=== PATIENT | female | born 1990 | race Two or more races ===

== ENCOUNTER 2023-09-26 11:43 | Emergency (ER) | payer BC, SELFPAY ==
[2023-09-26 11:50] VITALS: BP 110/73
[2023-09-26 12:20] VITALS: BMI 28.3
[2023-09-26 12:43] LABS: % Basophils 0.9 % (0-2); % Immature Granulocytes 0.5 % (0-0.5); % Lymphocytes 20.4 % (20.5-51.1); % Monocytes 9.5 % (1.7-9.3); % Neutrophils 65.7 % (42.2-75.2); Absolute Eosinophils 0.1 10^3/uL (0-0.7); Absolute Lymphocytes 0.9 10^3/uL (1.2-3.4); Absolute Monocytes 0.4 10^3/uL (0.1-0.6); Absolute Neutrophils 2.8 10^3/uL (1.4-6.5); Hemoglobin 9.2 g/dL (12.0-16.0); Mean Corp Hgb Conc. 31.7 g/dL (33.0-37.0); Mean Corpuscular Hgb 25.9 pg (27.0-31.0); Mean Corpuscular Volume 81.7 fL (81.0-99.0); Mean Platelet Volume 10.8 fL (7.4-10.4); Nucleated Red Blood Cells % 0.5 %; Platelet Count 382 10^3/uL (130-400); Red Blood Cell Count 3.55 10^6/uL (4.20-5.40); Red Cell Dist. Width 19.9 % (11.5-14.5); White Blood Cell Count 4.3 10^3/uL (4.8-10.8)
[2023-09-26 12:45] LABS: Urine Albumin Negative (Neg - Trace); Urine Bilirubin Negative (Negative); Urine Character Clear (Clear); Urine Color Yellow; Urine Glucose Negative (Negative); Urine Ketone Negative (Negative); Urine Leukocyte Negative (Negative); Urine Nitrite Negative (Negative); Urine Occult Blood Negative (Negative); Urine Urobilinogen Negative (Neg - 1+)
--- NOTE | 2023-09-26 13:01 | ED.GENMED ---
History of Present Illness
General
Chief Complaint: Abdominal Pain
Source: patient and family
Exam Limitations: none
Time Seen by Provider: 09/26/23 12:44
Nursing documentation reviewed up to this point in time: agreed with
Travel History
Have you had any contact with someone who has COVID-19?: No
Do you have any symptoms of coronavirus? Fever > 100 degrees, chills, cough, shortness of breath, sore throat, loss of taste or smell, muscle aches, or headache?: No
History of Present Illness
History of Present Illness:
Patient is a 33-year-old female with diagnosis of breast cancer who had a first chemo session August 28. She is followed by [facility] Dr. Morris. She is chemo weekly every Sunday and she was post to have chemo today however did not
because she is not feeling well. She complains of sore throat nonproductive cough abdominal cramping low back pain. Since chemo she has had frequent limits and at times has a blood in her stool. She reports her temperature was 99.9 at home. She
was seen in [place] ED September 08 for borderline neutropenia at that time she had low back pain and had a negative CAT scan.
Past History
Past History
ED Past Medical History: None
ED Past Surgical History:
Social History
Tobacco: Non-smoker
Alcohol: Occasional
Family History
Family History: Unable to obtain
Phy Exam
General Physical Exam
General Presentation: no apparent distress
General age: appears stated age
General Skin: warm and dry
General Habitus: normal
General Mental: alert
ENT Exam
ENT Exam: EOMI, pharynx normal and neck supple
Cardiovascular Exam
Cardiovascular Exam: regular rate/rhythm, no murmur and normal peripheral pulses
Pulmonary Exam
Pulmonary Exam: lungs clear and no respiratory distress
Gastrointestinal Exam
Gastrointestinal Exam: non tender and soft
Neurological Exam
Neurological Exam: alert and oriented x3
Musculoskeletal Exam
Musculoskeletal Exam: full ROM
Skin Exam
Skin Exam: normal color
Psychiatric Exam
Psychiatric Exam: normal mood/affect
Course
Orders/Labs/Results
Orders:
Orders
09/26/23 12:27
Test Result ONCE
09/26/23 12:29
Complete Blood Count/With Diff Urgent
Comprehensive Metabolic Panel Urgent
HCG, Serum Qualitative Screen Urgent
09/26/23 12:34
Urinalysis Reflex To Culture Urgent
Date Specimen was Collected: 09/26/23
Time Specimen was Collected: 12:33
09/26/23 13:38
0.9% Sodium Chloride 1000 ml [Nss] 1,000 ml IV BOLUS
Chest [CR Chest - 2 Views ] Urgent
Comment:
Reason For Exam: cough
09/26/23 13:44
Stool Culture Urgent
KAROLINE Source: Feces/Stool
Specimen Description:
Date Specimen was Collected: 09/26/23
Time Specimen was Collected: 13:42
09/26/23 13:46
Rapid Strep Group A Urgent
KAROLINE Source: Throat/Pharynx
Specimen Description:
Date Specimen was Collected: 09/26/23
Time Specimen was Collected: 13:46
09/26/23 14:11
Dicyclomine HCl [Bentyl] 20 mg IM NOW STA
09/26/23 15:47
Dicyclomine [Bentyl] 20 mg PO NOW STA
09/26/23 16:33
COVID-19 Antigen Urgent
Source: Nasal Swab
Influenza A+B Rapid Molecular Urgent
KAROLINE Source: Nasal Swab
Specimen Description:
Abnormal Lab Results
09/26/23
12:29
WBC 4.3 L 10^3/uL
(4.8-10.8)
RBC 3.55 L 10^6/uL
(4.20-5.40)
Hgb 9.2 L g/dL
(12.0-16.0)
Hct 29.0 L %
(37.0-47.0)
MCH 25.9 L pg
(27.0-31.0)
MCHC 31.7 L g/dL
(33.0-37.0)
RDW 19.9 H %
(11.5-14.5)
MPV 10.8 H fL
(7.4-10.4)
Absolute Lymphs (auto) 0.9 L 10^3/uL
(1.2-3.4)
Lymphocytes % 20.4 L %
(20.5-51.1)
Monocytes % 9.5 H %
(1.7-9.3)
Creatinine 0.5 L mg/dL
(0.6-1.0)
Glucose 105 H mg/dl
(70-99)
AST 50 H U/L
(14-36)
ALT 87 H U/L
(0-35)
09/26/23 12:29
09/26/23 12:29
Vital Signs
Initial and Last Documented VS:
Initial Vital Signs
Temp Pulse Resp BP Pulse Ox
98.5 F 101 17 110/73 98
09/26/23 11:50 09/26/23 11:50 09/26/23 11:50 09/26/23 11:50 09/26/23 11:50
Last Documented Vital Signs
Temp Pulse Resp BP Pulse Ox
99.0 F 99 20 115/72 99
09/26/23 16:32 09/26/23 16:32 09/26/23 16:32 09/26/23 16:32 09/26/23 16:32
MDM/Problems Addressed
MDM/Problems Addressed:
Symptoms are likely viral syndrome. Patient claims mild sore throat abdominal crampiness diarrhea muscle aches back pain. She denies any cough or fever or chills. Denies urinary frequency urgency or dysuria Patient presents awake alert no acute
distress afebrile normal white count hemoglobin 9.2 normal renal function and sodium/potassium normal. Patientwith normal platelets neutrophils 2.8. Normal chemistries(minimal elevation LFTs), normal bilirubin normal urinalysis. Patient received
fluids nausea medicine Bentyl feeling better will DC with Bentyl. Patient has Motrin at home along with nausea medicine discussed close outpatient follow-up w/ oncology /pcp
Chronic conditions affecting care:
currently undergoing treatment (chemo for breast cancer
*Critical Care Note
Total Time (30-74mins, 75-104mins- exclusive of procedures): Not Applicable
ED Attending Note
-
Portions of this chart may have been created with voice recognition software.� Occasional wrong word or��sound alike� substitutions may have occurred due to the inherent limitations of voice recognition software.
Discharge Plan
Departure
Patient Disposition: Home (Routine Discharge)
Date of Disposition: 09/26/23
Time of Disposition: 17:22
Patient with high blood pressure during this ER visit?: No
Condition: Fair
Covid-19: Not Applicable
Discharge Problem:
Acute viral syndrome
Instructions: Viral Exanthem (DC)
Prescriptions:
New
dicyclomine 20 mg tablet
20 mg PO QID PRN (Reason: abdominal cramping) Qty: 10 0RF
No Action
doxycycline hyclate 100 MG capsule
100 mg PO Q12 Qty: 20 0RF
Referrals:
Dahiana Carr PA [Family Provider] -
Activity Restrictions/Additional Instructions:
As discussed to stay well-hydrated you may take your nausea medicine that you have at home as needed. A prescription for Bentyl, antispasmodic was sent to your pharmacy to take for abdominal cramping if needed. You may take ibuprofen for body
aches and chills. Follow-up with oncologist/family doctor next several days for reevaluation return if any worsening of symptoms including worsening fever chills shortness of breath worsening diarrhea or any further concerns.
Interventions
Interventions:
*General Assessment Last Done: 09/26/23 12:21
*Neglect/Abuse Screening Last Done: 09/26/23 12:21
*ED COVID-19 Vaccine History Last Done: 09/26/23 12:23
TF-Idtuqk-Hiwgmoloxp Assessment Last Done: 09/26/23 12:23
Discharge Date and Time
Print Language: YI
[2023-09-26 13:06] LABS: HCG, Serum Qualitative Screen Negative
[2023-09-26 13:08] LABS: ALT (SGPT) 87 U/L (0-35); AST (SGOT) 50 U/L (14-36); Alkaline Phosphatase 59 U/L (38-126); Blood Urea Nitrogen 10 mg/dl (7-17); Calcium 9.3 mg/dl (8.4-10.2); Carbon Dioxide 30 mmol/L (22-30); Chloride 104 mmol/L (98-107); Estimated Creatinine Clearance 120 ml/min; Glucose 105 mg/dl (70-99); Potassium 4.1 mmol/L (3.5-5.1); Sodium 138 mmol/L (135-145); Total Bilirubin 0.2 mg/dl (0.2-1.3); Total Protein 6.9 g/dl (6.3-8.2); eGFR > 60.00
[2023-09-26 13:30] VITALS: BP 112/70
[2023-09-26] MEDS: NSS 1000 IV (13:40)
[2023-09-26 15:00] VITALS: BP 107/72
[2023-09-26] MEDS: BENTYL 20 MG PO (16:25)
[2023-09-26 16:32] VITALS: BP 115/72
[2023-09-26 17:02] LABS: COVID-19 Antigen Negative (Negative)
[2023-09-26 18:00] VITALS: BP 107/75
== END 2023-09-26 18:20 | disposition home or self-care (01) ==
LOC: EMR 11:43
PROVIDERS: Nurse Practitioner; EMERGENCY PHYSICIAN Emergency Medicine; FAMILY PHYSICIAN Family Medicine
DX: B34.9 Viral infection, unspecified (principal); C50.919 Malignant neoplasm of unspecified site of unspecified female breast; Z11.52 Encounter for screening for COVID-19
CPT/HCPCS: 99284; 96360; 71046; 80053; 81003; 84703; 85025; 87045; 87046; 87070; 87427; 87502; 87811; 87880

== ENCOUNTER 2023-10-01 13:56 | Emergency (ER) | payer BC, SELFPAY ==
[2023-10-01 14:03] VITALS: BP 112/93
[2023-10-01 16:10] LABS: % Basophils 1.1 % (0-2); % Eosinophils 5.6 % (0-6); % Immature Granulocytes 0.3 % (0-0.5); % Lymphocytes 36.5 % (20.5-51.1); % Monocytes 17.8 % (1.7-9.3); % Neutrophils 38.7 % (42.2-75.2); Absolute Eosinophils 0.2 10^3/uL (0-0.7); Absolute Lymphocytes 1.3 10^3/uL (1.2-3.4); Absolute Monocytes 0.6 10^3/uL (0.1-0.6); Absolute Neutrophils 1.4 10^3/uL (1.4-6.5); Hematocrit 30.2 % (37.0-47.0); Hemoglobin 9.5 g/dL (12.0-16.0); Mean Corp Hgb Conc. 31.5 g/dL (33.0-37.0); Mean Corpuscular Hgb 25.9 pg (27.0-31.0); Mean Corpuscular Volume 82.3 fL (81.0-99.0); Mean Platelet Volume 10.2 fL (7.4-10.4); Nucleated Red Blood Cells % 0 %; Platelet Count 270 10^3/uL (130-400); Red Blood Cell Count 3.67 10^6/uL (4.20-5.40); Red Cell Dist. Width 21.7 % (11.5-14.5); White Blood Cell Count 3.6 10^3/uL (4.8-10.8)
[2023-10-01 16:21] LABS: INR 1.31; PT 16.1 Sec (11.4-14.6)
[2023-10-01 16:27] LABS: ALT (SGPT) 30 U/L (0-35); AST (SGOT) 24 U/L (14-36); Albumin 3.8 g/dl (3.5-5.0); Alkaline Phosphatase 68 U/L (38-126); Blood Urea Nitrogen 9 mg/dl (7-17); Calcium 9.3 mg/dl (8.4-10.2); Carbon Dioxide 26 mmol/L (22-30); Chloride 102 mmol/L (98-107); Glucose 99 mg/dl (70-99); Sodium 138 mmol/L (135-145); Total Bilirubin 0.4 mg/dl (0.2-1.3); Total Protein 6.6 g/dl (6.3-8.2); eGFR > 60.00
--- NOTE | 2023-10-01 17:04 | ED.GENMED ---
History of Present Illness
General
Chief Complaint: Rectal Bleeding
Source: patient, records and family
Time Seen by Provider: 10/01/23 16:27
Travel History
Have you had any contact with someone who has COVID-19?: No
Do you have any symptoms of coronavirus? Fever > 100 degrees, chills, cough, shortness of breath, sore throat, loss of taste or smell, muscle aches, or headache?: No
History of Present Illness
History of Present Illness:
33-year-old female with past medical history of breast cancer, currently undergoing chemotherapy with last treatment on September 18, presenting to the emergency department for evaluation of continued rectal bleeding after being seen in this emergency
department last week with URI-like symptoms as well as some mild bright red blood intermixed with stool and mucousy stool. Patient was seen in this emergency department last week for some URI-like symptoms but also noted the mucousy and
intermittently bloody stools then. She was given some dicyclomine which she states overall helped the frequency and urgency continue to have bowel movements but states the same mucousy and sometimes blood intermixed with the stool is still present.
She denies any fevers, chills, rigors, vomiting or diarrhea. She does state that she has not been eating or drinking as much due to her chemotherapy and does strain sometimes while having a bowel movement
Past History
Past History
ED Past Medical History: Cancer and Psychiatric
ED Past Surgical History:
Social History
Tobacco: Non-smoker
Alcohol: Occasional
Drug: None
Personal: Single
Living: with family
Family History
Family History: Unable to obtain
Review of Systems
Review of Systems
All Other Systems: ROS reviewed and negative except as documented in HPI and ROS
Phy Exam
Physical Exam
Physical Exam:
GENERAL: Alert , in no apparent distress
EYE: clear conjunctiva b/l
HEAD: NCAT
ENT: o/p clr, mmm.
CARDIAC: Regular rate and rhythm .
LUNGS: Clear breath sounds bilaterally, no acute respiratory distress, no wheezes/rales/rhonchi
ABDOMEN: Soft, without focal tenderness, no r/g, no cvat
Rectal exam: Chaperoned by ED RN Eneida: Small hemorrhoid at the 6 o'clock position noted. No stool in the rectal vault. No blood appreciated
NEUROLOGICAL: Alert and oriented
SKIN: Warm and dry, skin intact.
MUSCULOSKELETAL: well perfused.
PSYCH: Normal and appropriate interaction.
Scores
Heart Failure Risk
Heart Failure Risk Score: Not Applicable
Heart Score for Chest Pain Patients
STEMI patient?: Not applicable
Withdrawal Assessment of Alcohol
Withdrawal Assessment Completed?: Not applicable
Course
Orders/Labs/Results
Orders:
Orders
10/01/23 16:03
Type+Screen Urgent
Complete Blood Count/With Diff Urgent
Comprehensive Metabolic Panel Urgent
Prothrombin Time Urgent
10/01/23 16:44
CR Abdomen - 1 View Urgent
Comment:
Reason For Exam: constipation, bleeding, hx breast cancer
Abnormal Lab Results
10/01/23
16:03
WBC 3.6 L 10^3/uL
(4.8-10.8)
RBC 3.67 L 10^6/uL
(4.20-5.40)
Hgb 9.5 L g/dL
(12.0-16.0)
Hct 30.2 L %
(37.0-47.0)
MCH 25.9 L pg
(27.0-31.0)
MCHC 31.5 L g/dL
(33.0-37.0)
RDW 21.7 H %
(11.5-14.5)
Neutrophils % 38.7 L %
(42.2-75.2)
Monocytes % 17.8 H %
(1.7-9.3)
PT 16.1 H Sec
(11.4-14.6)
10/01/23 16:03
10/01/23 16:03
Vital Signs
Initial and Last Documented VS:
Initial Vital Signs
Temp Pulse Resp BP Pulse Ox
98.0 F 89 16 112/93 98
10/01/23 14:03 10/01/23 14:03 10/01/23 14:03 10/01/23 14:03 10/01/23 14:03
Last Documented Vital Signs
Temp Pulse Resp BP Pulse Ox
98.0 F 74 18 99/69 97
10/01/23 14:03 10/01/23 17:43 10/01/23 17:43 10/01/23 17:43 10/01/23 17:43
MDM/Problems Addressed
Differential Diagnosis Includes:
Hemorrhoidal bleeding, inflammatory bowel disease, bowel obstruction, upper GI bleeding
MDM/Problems Addressed:
33-year-old female presenting the emergency department for evaluation of continued intermittently mucousy stools and intermittent streaks of blood within the stool. She had similar over the last few days. Symptoms somewhat improved with
dicyclomine. Labs were initiated while in triage and patient has a reassuring hemoglobin of 9.5 which is increased from 9.2 just a few days ago. My suspicion for significant upper or lower GI bleed is very minimal given the increase in her
hemoglobin. Labs are otherwise unremarkable. X-ray of the abdomen ordered to evaluate for potential obstruction although feel that this is much less likely as patient is still having bowel movements, no vomiting and still be able to tolerate p.o.
Ultimately feel patient will be stable for discharge home and outpatient management. Patient is requesting me to contact her oncologist as well.
*Radiology
Radiology exam reviewed: preliminary read by ED provider (No obstruction, mild constipation)
*Pulse Oximetry
Patient hypoxic: no
*Critical Care Note
Total Time (30-74mins, 75-104mins- exclusive of procedures): Not Applicable
Data Reviewed
Review of Other/Old Records Reveals: Labs and Records
Patient Management
Discussion with other providers: Wildlife Biology Technician
Escalation/DeEscalation of care consider admission/obs:
Patient's x-ray of the abdomen is unremarkable for any acute pathologies. There is some mild increased stool burden. Advised stool softener. I did notify patient's oncologist at their request who is aware of patient's workup in the ED. Patient
is ultimately stable for discharge and outpatient management. Aware of return precautions.
ED Attending Note
-
Portions of this chart may have been created with voice recognition software.� Occasional wrong word or��sound alike� substitutions may have occurred due to the inherent limitations of voice recognition software.
Discharge Plan
Departure
Patient Disposition: Home (Routine Discharge)
Date of Disposition: 10/01/23
Time of Disposition: 18:03
Patient with high blood pressure during this ER visit?: No
Discharge Problem:
Bleeding hemorrhoids
Instructions: Hemorrhoids (DC)
Prescriptions:
New
hydrocortisone [Anusol-HC] 2.5 % cream with perineal applicator
1 applic PA DAILY PRN (Reason: hemorrhoids) Qty: 30 0RF
dicyclomine 20 mg tablet
20 mg PO BID PRN (Reason: abdominal pain) Qty: 15 0RF
No Action
dicyclomine 20 mg tablet
20 mg PO QID PRN (Reason: abdominal cramping) Qty: 10 0RF
ondansetron [Zofran ODT] 8 mg Tablet,Disintegrating
8 mg PO [id number] PRN (Reason: nausea)
vitamin B complex [B Complete] Tablet
1 tab PO DAILY
cholecalciferol (vitamin D3) [Vitamin D3] 25 mcg (1,000 unit) Tablet
25 mcg PO DAILY
Visbiome 112.5 billion cell Capsule
1 cap PO DAILY
omega 7-ixd-pdf-fish oil [Fish Oil] 1,000 mg (120 mg-180 mg) Capsule
1 cap PO DAILY
calcium carbonate 800 mg calcium /2 gram Powder
500 mg PO DAILY
Black Seed Oil
5 ml PO DAILY
Delta-8 Thc And Cbd Gummies
0.5 tab PO BID
Patient Comments:
patient does no have her medical card yet
[place] Jelly
1 dose PO DAILY
Super Greens Powder
1 packet PO DAILY
Referrals:
Bennett Blanchard MD [Active] - (Colorectal)
Bennett Diaz MD [Family Provider] -
Interventions
Interventions:
*Risk Screen - Suicide Last Done: 10/01/23 18:10
*General Assessment Last Done: 10/01/23 15:45
*Neglect/Abuse Screening Last Done: 10/01/23 18:10
ED- Fall Risk Assessment Last Done: 10/01/23 18:10
*ED COVID-19 Vaccine History Last Done: 10/01/23 14:03
*Nursing Disposition Last Done: 10/01/23 18:10
QH-Bfsmzv-Ipmjrununt Assessment Last Done: 10/01/23 16:40
ED- Pulmonary Assessment Last Done: 10/01/23 16:38
Discharge Date and Time
Discharge Date/Time: 10/01/23 18:10
Print Language: KISWAHILI
[2023-10-01 17:43] VITALS: BP 99/69
== END 2023-10-01 18:10 | disposition home or self-care (01) ==
LOC: EMR 13:56
PROVIDERS: EMERGENCY PHYSICIAN Emergency Medicine; FAMILY PHYSICIAN Family Medicine
DX: K64.9 Unspecified hemorrhoids (principal); K59.00 Constipation, unspecified
CPT/HCPCS: 99284; 74018; 80053; 85025; 85610; 86850; 86900; 86901

== ENCOUNTER → 2023-10-09 15:35 | Outpatient (REF) | payer BC, SELFPAY ==
[2023-10-14 09:02] LABS: HPV, High Risk Not Detected; HPV, High Risk Source Anal
== END ==
LOC: CLAB 15:35
PROVIDERS: ATTENDING PHYSICIAN Surgery
DX: Z86.19 Personal history of other infectious and parasitic diseases (principal)
CPT/HCPCS: 87624; 88112

== ENCOUNTER 2023-10-10 08:47 | Outpatient (RCR) | payer BC, SELFPAY ==
[2023-10-10 09:06] VITALS: BP 108/60
[2023-10-10 09:08] VITALS: BMI 26.2
[2023-10-10 09:27] LABS: % Basophils 0.4 % (0-2); % Eosinophils 2.5 % (0-6); % Lymphocytes 22.7 % (20.5-51.1); % Monocytes 10.9 % (1.7-9.3); % Neutrophils 63.5 % (42.2-75.2); Absolute Eosinophils 0.1 10^3/uL (0-0.7); Absolute Lymphocytes 1.2 10^3/uL (1.2-3.4); Absolute Monocytes 0.6 10^3/uL (0.1-0.6); Absolute Neutrophils 3.3 10^3/uL (1.4-6.5); Hematocrit 35.4 % (37.0-47.0); Hemoglobin 11.2 g/dL (12.0-16.0); Mean Corp Hgb Conc. 31.6 g/dL (33.0-37.0); Mean Corpuscular Hgb 26.9 pg (27.0-31.0); Mean Corpuscular Volume 84.9 fL (81.0-99.0); Platelet Count 294 10^3/uL (130-400); Red Blood Cell Count 4.17 10^6/uL (4.20-5.40); Red Cell Dist. Width 21.7 % (11.5-14.5); White Blood Cell Count 5.2 10^3/uL (4.8-10.8)
[2023-10-10] MEDS: INJECTAFER 265 MG IV (09:46)
[2023-10-10 10:19] LABS: ALT (SGPT) 19 U/L (0-35); AST (SGOT) 19 U/L (14-36); Albumin 3.7 g/dl (3.5-5.0); Alkaline Phosphatase 64 U/L (38-126); Blood Urea Nitrogen 4 mg/dl (7-17); Calcium 9.6 mg/dl (8.4-10.2); Carbon Dioxide 25 mmol/L (22-30); Chloride 104 mmol/L (98-107); Estimated Creatinine Clearance 104 ml/min; Glucose 132 mg/dl (70-99); Phosphorus 3.3 mg/dl (2.5-4.5); Potassium 3.8 mmol/L (3.5-5.1); Sodium 139 mmol/L (135-145); Total Bilirubin 0.3 mg/dl (0.2-1.3); Total Protein 6.3 g/dl (6.3-8.2); eGFR > 60.00
[2023-10-10 10:49] LABS: TSH Reflex To Free T4 0.29 uIU/ml (0.47-4.68)
[2023-10-10 11:30] LABS: Free T4 1.36 ng/dl (0.78-2.19)
[2023-10-10] MEDS: NSS 1000 IV (11:33)
--- NOTE | 2023-10-10 15:10 | W.PN.UPDATE ---
Update Note
- Progress Note Update
10/10/23 15:10
Stephanie is a 33 year old female with a history of breat cancer undergoing neoadjuvant treatment. She comes to today's appointment with her mother. SHe is due to receive keytruda/taxol/carbo and injectafer. Patient seen in [facility] today prior to
treatment. States continues to have 'mauve colored stool' as well as some bright red blood at times and with significant cramping and diarrhea 6 times per day of watery/mucousy stool. Treatment held last week due to a myriad of symptoms and
patient asked for treatment to be held. Collette been in ER a few times for neutropenia and GI bleed/cramping/diarrhea. See ER notes from . Saw GI Dr. Alejandre yesterday who performed rectal exam. She was found to have hemorrhoids but this was not
believed to be cause for bleeding. Last treatment with keytruda 08/29/2023 and taxol/carbo at a reduced dose 09/18. She has had dose delays due to cramping/bleeding and diarrhea and was last treated 09/19/2023. per GI stool specimen r/o
parasites/infection ordered and pending as well as CT abdomen/pelvis ordered and scheduled for Sunday. She is concerned about having treatment today but we did discuss the concerns with delays in treatment and how that can impact response. Spoke
with DON Romeo in [facility] office who states given pending workup and symptoms patient is feeling today we should hold and reassess next week. Appointment for [facility] made for 10/15 at 1pm. Labs to possibly be drawn to
decrease wait time for treatment 10/16. Patient will call to discuss with [facility] if this is possible. Encouraged her to call us for additional questions or concerns. Given severe cramping an rx for ativan was ordered and sent to pharmacy.
Patient instructed not to mix delta 8 gummies with ativan and advised not to drive while taking. If stool studies return normal will plan to resume loperamide if OK by GI and can consider the use of lomotil. Still with lower back pain at times as
well. CT lumbar spine done 09/10/2023 and was without abnormality. Done at [facility] results in [place] for review. She was educated on when to call [facility] office and encouraged to call for any questions or concerns. Will see her next week upon
her return and am available as needed for any additional questions or concerns in the meantime.
== END 2023-10-19 23:59 | disposition home or self-care (01) ==
LOC: OID 08:47
PROVIDERS: ATTENDING PHYSICIAN Internal Medicine Hematology & Oncology; FAMILY PHYSICIAN Family Medicine
DX: C50.412 Malignant neoplasm of upper-outer quadrant of left female breast (principal); D50.9 Iron deficiency anemia, unspecified; D50.8 Other iron deficiency anemias
CPT/HCPCS: 80053; 84100; 84439; 84443; 85025; 96361; 96365; J1439

== ENCOUNTER → 2023-10-10 09:07 | Outpatient (REF) | payer BC, SELFPAY ==
[2023-10-12 17:00] LABS: Calprotectin, Fecal >3000 ug/g (<=49)
== END ==
LOC: REG 09:07
PROVIDERS: ATTENDING PHYSICIAN Surgery; FAMILY PHYSICIAN Family Medicine
DX: R19.7 Diarrhea, unspecified (principal); Z86.19 Personal history of other infectious and parasitic diseases
CPT/HCPCS: 83993; 87045; 87046; 87324; 87328; 87329; 87427; 87449

== ENCOUNTER → 2023-10-12 11:17 | Outpatient (REF) | payer BC, SELFPAY | LOC: HWRAD 11:17 | PROVIDERS: ATTENDING PHYSICIAN Surgery; FAMILY PHYSICIAN Family Medicine; REFERRING PHYSICIAN Internal Medicine Hematology & Oncology | DX: R10.9 Unspecified abdominal pain (principal) | CPT/HCPCS: 74177; Q9967 ==

== ENCOUNTER 2023-10-12 23:05 | Inpatient (IN) | payer BC, SELFPAY ==
[2023-10-12 21:30] VITALS: BP 93/64
--- NOTE | 2023-10-12 22:14 | ED.GENMED ---
History of Present Illness
<SANTOS Sawant - Last Filed: 10/12/23 22:34>
General
Chief Complaint: Abdominal Symptoms
Source: patient and records
Exam Limitations: none
Time Seen by Provider: 10/12/23 22:04
Travel History
Have you had any contact with someone who has COVID-19?: No
Do you have any symptoms of coronavirus? Fever > 100 degrees, chills, cough, shortness of breath, sore throat, loss of taste or smell, muscle aches, or headache?: No
History of Present Illness
History of Present Illness:
33 year old female with hx of breast CA currently on neoadjuvent treatment who presents with symptoms of abdominal cramping with nausea and diarrhea that worsened 3 weeks ago. States she has been having abdominal cramping, nausea, and diarrhea since
starting chemotherapy for her breast CA on 08/20/23. She is on keytruda/taxol/carbo and injectafer. Symptoms worsened three weeks ago with increased abdominal cramping and diarrhea she describes as 'mauve colored' with bright red blood at times.
Also reports increased belching and mild SOB due to the abdominal cramping. Her treatment was held last week due to worsening GI symptoms. She was seen here on 09/26/23 and 10/01/23. Abdominal x-ray and labs were unremarkable and pt was discharged.
Last treatment of keytruda was 08/29/23 and taxol/carbo at a reduced dose of 09/19/23. Pt saw GI DR. Alejandre who ordered a CT abdomen. CT abdomen performed today showed pronounced colonic thickening involving the cecum, ascending colon, hepatic
flexure, and proximal transverse colon, consistent with colitis. Stool studies resulted on 10/10/23 showed negative for infection. Pt was advised to visit the ER by Dr. Aljeandre for admission and IV abx. Denies fevers/chills, cough, chest pain,
vomiting, dysuria, hematuria. She has hx of c/s x2. No other abdominal surgeries.
Past History
<SANTOS Sawant - Last Filed: 10/12/23 22:34>
Past History
ED Past Medical History: Cancer and Psychiatric
ED Past Surgical History:
Social History
Tobacco: Non-smoker
Alcohol: Occasional
Drug: None
Personal: Single
Living: with family
Family History
Family History: Unable to obtain
Review of Systems
<SANTOS Sawant - Last Filed: 10/12/23 22:34>
Review of Systems
Allergies reviewed?: Yes
All Other Systems: ROS reviewed and negative except as documented in HPI and ROS
Constitutional: Reports fatigue
EENT: Reports no symptoms
Respiratory: Reports trouble breathing
Cardiac: Reports no symptoms
ABD/GI: Reports abdominal pain, nausea, vomiting and bloody stools
: Reports no symptoms
Musculoskeletal: Reports no symptoms
Skin: Reports no symptoms
Neurological: Reports no symptoms
Endocrine: Reports no symptoms
Phy Exam
<SANTOS Sawant - Last Filed: 10/12/23 22:34>
General Physical Exam
General Presentation: well appearing
General age: appears stated age
General Skin: warm and dry
General Habitus: normal
General Mental: alert
General Hydration: appears well hydrated
Cardiovascular Exam
Cardiovascular Exam: no edema, no gallop, no murmur, normal peripheral pulses, no carotid bruit and tachycardia
Pulmonary Exam
Pulmonary Exam: lungs clear, no respiratory distress, no rales, no crackles, no rhonchi, no wheezing, no cough and other (Port site to R anterior chest, appears clean/dry/intact, mildly tender to palpation. )
Gastrointestinal Exam
Gastrointestinal Exam: normal bowel sounds, soft, no organomegaly, no pulsatile mass and non distended
Palpation: right upper quadrant: Mild tenderness and Other (Mild epigastric tenderness)
Course
<SANTOS Sawant - Last Filed: 10/12/23 22:34>
Orders/Labs/Results
Orders:
Orders
10/12/23 22:28
Lactic Acid Urgent
0.9% Sodium Chloride 1000 ml [Nss] 1,000 ml IV BOLUS
Lorazepam [Ativan] 0.5 mg IV NOW STA
Piperacillin/Tazo 3.375 Gram [Zosyn] 3.375 gram in 50 ml IV NOW
10/12/23 22:29
Complete Blood Count/With Diff Urgent
Comprehensive Metabolic Panel Urgent
Vital Signs
Initial and Last Documented VS:
Initial Vital Signs
Temp Pulse Resp BP Pulse Ox
98.7 F 99 16 93/64 99
10/12/23 21:30 10/12/23 21:30 10/12/23 21:30 10/12/23 21:30 10/12/23 21:30
Last Documented Vital Signs
Temp Pulse Resp BP Pulse Ox
98.7 F 99 16 93/64 99
10/12/23 21:30 10/12/23 21:30 10/12/23 21:30 10/12/23 21:30 10/12/23 21:30
<Yin Chen DO - Last Filed: 10/12/23 22:44>
Orders/Labs/Results
Orders:
Orders
10/12/23 22:28
Lactic Acid Urgent
0.9% Sodium Chloride 1000 ml [Nss] 1,000 ml IV BOLUS
Lorazepam [Ativan] 0.5 mg IV NOW STA
Piperacillin/Tazo 3.375 Gram [Zosyn] 3.375 gram in 50 ml IV NOW
10/12/23 22:29
Complete Blood Count/With Diff Urgent
Comprehensive Metabolic Panel Urgent
Vital Signs
Initial and Last Documented VS:
Initial Vital Signs
Temp Pulse Resp BP Pulse Ox
98.7 F 99 16 93/64 99
10/12/23 21:30 10/12/23 21:30 10/12/23 21:30 10/12/23 21:30 10/12/23 21:30
Last Documented Vital Signs
Temp Pulse Resp BP Pulse Ox
98.7 F 99 16 93/64 99
10/12/23 21:30 10/12/23 21:30 10/12/23 21:30 10/12/23 21:30 10/12/23 21:30
<SANTOS Sawant - Last Filed: 10/12/23 22:34>
MDM/Problems Addressed
Differential Diagnosis Includes:
Colitis, viral gastroenteritis, rectal carcinoma
MDM/Problems Addressed:
33 year old female with hx of breast CA on chemo who presents for worsening abdominal cramping with nausea and diarrhea x 3 weeks.
Chronic conditions affecting care: Cancer
<SANTOS Sawant - Last Filed: 10/12/23 22:34>
*Critical Care Note
Total Time (30-74mins, 75-104mins- exclusive of procedures): Not Applicable
<Yin Chen DO - Last Filed: 10/12/23 22:44>
*Radiology
Radiology exam reviewed: radiology read reviewed (Outpatient CT abdomen pelvis from earlier today reviewed)
*Pulse Oximetry
Patient hypoxic: no
*Critical Care Note
Total Time (30-74mins, 75-104mins- exclusive of procedures): Not Applicable
ED Attending Note
<SANTOS Sawant - Last Filed: 10/12/23 22:34>
-
Portions of this chart may have been created with voice recognition software.� Occasional wrong word or��sound alike� substitutions may have occurred due to the inherent limitations of voice recognition software.
<Yin Chen DO - Last Filed: 10/12/23 22:44>
ED Attending Note
Patient seen and examined by attending physician: Yes
I performed the substantive portion of visit, reviewed & personally made and approve the management plan that is documented in note by myself or SARITHA.: Yes
I performed a history and physical exam of patient and discussed management with resident, I reviewed resident's note and agree with documented findings and plan of care.: Yes
ED Attending Note:
This is a 33-year-old woman with history of breast cancer who began adjuvant chemotherapy August 28 with Keytruda and Taxol/carbo 09/18. For the past 3 weeks she has had intermittent abdominal cramping, persistent diarrhea with intermittent mucoid
bloody stools. She was running a low-grade fever first week of September and was evaluated in this ED September 25 with unremarkable workup including laboratory studies that showed mild anemia with hemoglobin of 9.2, white blood cell count of 4.3. A CT of the
abdomen and pelvis performed at [facility] week prior was unremarkable. She returned to the ED September 30 due to persistent diarrhea with resolution of fever. Laboratory studies showed persistent mild leukopenia of 3.6 but improvement in
hemoglobin to 9.5. Obstruction series was unremarkable.
She was scheduled for her next dose to chemo just 2 days ago but due to ongoing diarrhea, chemotherapy has remained on hold. She did receive an IV iron infusion 2 days ago.
Stool stool cultures from 2 days ago have returned negative as well as negative C. difficile but CT of the abdomen and pelvis performed today shows moderate pancolitis. No evidence of pneumatosis nor extraluminal air.
Patient was notified of CAT scan results and was instructed to come to the ED for IV fluids and initiation of IV antibiotics.
She continues with crampy abdominal discomfort but denies severe pain. She been having ongoing low back pain for more than a month, nonradiating. She has been attempting to increase her clear liquids but continues to feel somewhat dehydrated. She
has had no nausea or vomiting, no return of fever. She admits to mild generalized fatigue but has had no dizziness nor lightheadedness. No chest pain or cough nor shortness of breath.
GENERAL: 33-year-old female appears her stated age, awake and alert, mildly apprehensive otherwise easily communicative and in no acute distress.
EYE: anicteric
NECK: Supple, nontender, no meningismus, no significant adenopathy.
ENT: oral mucosa is moist. No rhinorrhea.
CARDIAC: Regular rate and rhythm. no murmur.
LUNGS: Clear breath sounds bilaterally, no acute respiratory distress, no wheezes/rales/rhonchi
ABDOMEN: Soft, nondistended, minimal tenderness with deep palpation only to the epigastric region, no r/g, no cvat. normoactive BS.
NEUROLOGICAL: Alert and oriented x3, no focal neuro deficits.
SKIN: Warm and dry, normal color, skin intact. No rash.
MUSCULOSKELETAL: No C/C/E. peripheral pulses are full and equal b/l. No palpable tenderness.
PSYCH: Normal and appropriate interaction.
History, exam and CT concerning for infectious versus inflammatory colitis, ischemic colitis is unlikely.
Concern for electrolyte abnormalities, acute kidney injury/dehydration.
Will initiate IV fluids, IV Zosyn and admit to hospitalist service.
Patient states Ativan prescribed to her 2 days ago has been somewhat helpful for abdominal cramps and low back pain. Will give a small IV dose of Ativan now.
Discharge Plan
Departure
Patient Disposition: Admit
Date of Disposition: 10/12/23
Time of Disposition: 22:34
Admit to: Med/Surg
Admit to doctor: Gerry
Presentation/result/management discussed w/ accepting MD/DO: Hospitalist
Condition: Fair
Discharge Problem:
acute pancolitis, Breast cancer
Prescriptions:
No Action
dicyclomine 20 mg tablet
20 mg PO QID PRN (Reason: abdominal cramping) Qty: 10 0RF
lorazepam [Ativan] 0.5 mg Tablet
0.5 mg PO TID PRN (Reason: nausea/cramping) Qty: 30 0RF
Rx Instructions:
take one tab every 8 hours as needed
ondansetron [Zofran ODT] 8 mg Tablet,Disintegrating
8 mg PO [id number] PRN (Reason: nausea)
vitamin B complex [B Complete] Tablet
1 tab PO DAILY
cholecalciferol (vitamin D3) [Vitamin D3] 25 mcg (1,000 unit) Tablet
25 mcg PO DAILY
Visbiome 112.5 billion cell Capsule
1 cap PO DAILY
omega 6-lkp-kar-fish oil [Fish Oil] 1,000 mg (120 mg-180 mg) Capsule
1 cap PO DAILY
calcium carbonate 800 mg calcium /2 gram Powder
500 mg PO DAILY
Black Seed Oil
5 ml PO DAILY
Delta-8 Thc And Cbd Gummies
0.5 tab PO BID
Patient Comments:
patient does no have her medical card yet
Sea [place] Jelly
1 dose PO DAILY
Super Greens Powder
1 packet PO DAILY
hydrocortisone [Anusol-HC] 2.5 % cream with perineal applicator
1 applic AR DAILY PRN (Reason: hemorrhoids) Qty: 30 0RF
Referrals:
Dahiana Carr PA [Family Provider] -
Interventions
Interventions:
*Risk Screen - Suicide Last Done: 10/12/23 21:30
*General Assessment Last Done: 10/12/23 21:30
*Neglect/Abuse Screening Last Done: 10/12/23 21:30
*ED COVID-19 Vaccine History Last Done: 10/12/23 21:58
[facility]-Cav[facility]rs[facility] Assessment Last Done: 10/12/23 21:59
Discharge Date and Time
Print Language: ESTONIAN
[2023-10-12] MEDS: ATIVAN 0.5 MG IV (22:41)
[2023-10-12] MEDS: ZOSYN 50 IV (22:41)
[2023-10-12] MEDS: NSS 1000 IV (22:42)
[2023-10-12 22:45] LABS: % Basophils 1.2 % (0-2); % Eosinophils 5.4 % (0-6); % Immature Granulocytes 0.2 % (0-0.5); % Monocytes 14.1 % (1.7-9.3); % Neutrophils 52.1 % (42.2-75.2); Absolute Basophils 0.1 10^3/uL (0-0.2); Absolute Eosinophils 0.2 10^3/uL (0-0.7); Absolute Lymphocytes 1.2 10^3/uL (1.2-3.4); Absolute Monocytes 0.6 10^3/uL (0.1-0.6); Absolute Neutrophils 2.2 10^3/uL (1.4-6.5); Hemoglobin 11.3 g/dL (12.0-16.0); Mean Corp Hgb Conc. 30.5 g/dL (33.0-37.0); Mean Corpuscular Hgb 26.2 pg (27.0-31.0); Mean Corpuscular Volume 85.6 fL (81.0-99.0); Mean Platelet Volume 10.6 fL (7.4-10.4); Nucleated Red Blood Cells % 0 %; Platelet Count 304 10^3/uL (130-400); Red Blood Cell Count 4.32 10^6/uL (4.20-5.40); Red Cell Dist. Width 22.2 % (11.5-14.5); White Blood Cell Count 4.3 10^3/uL (4.8-10.8)
--- NOTE | 2023-10-12 22:53 | HPS.HSE ---
Family Physician
-
Family Physician: Dahiana Carr
Chief Complaint
-
didarrhea
History of Present Illness
33-year-old female past medical history of breast cancer on neoadjuvant chemotherapy with Keytruda/Taxol/carboplatin and Injectafer presents with abdominal cramping and nausea and diarrhea worsening over the past 3 weeks. She states that since
starting chemotherapy for breast cancer on 08/19 she has been having intermittent abdominal cramping, nausea and diarrhea which she describes as watery and occasionally mauve colored with bright red blood at times although bleeding is recently
resolved. She has had increased belching and mild shortness of breath due to abdominal cramping. Her chemotherapy treatment was held last week due to GI symptoms. She came to the emergency room on 09/25 and 09/30. Abdominal x-rays were unremarkable
and patient was discharged.
Patient saw colorectal Dr. Alejandre who ordered CT scan abdomen which showed pronounced colonic thickening involving the cecum, ascending colon, hepatic flexure and proximal transverse colon consistent colitis. Stool studies performed on 10/07 were
negative for infection. She was recommended come to emergency room. She denies fevers or chills, cough, chest pain, vomiting, dysuria.
She denies smoking or alcohol use. She does take THC Gummies.
Medical History
Past Medical History
Past Medical History: Reports Other ( breast cancer on neoadjuvant chemotherapy with Keytruda/Taxol/carboplatin and Injectafer)
Past Surgical History: Reports
Social History
Tobacco: Non-smoker
Alcohol: None
Drug: Marijuana
Family History
Family History: Not pertinent
Allergies / Home Medications
Allergies reflects when Allergies were last updated in [facility].
Home Medications with original date entered in [facility]
Allergy/Medication List:
Allergies
Allergy/AdvReac Type Severity Reaction Status Date / Time
acetaminophen [From Percocet] Allergy Itching Verified 10/10/23 11:32
oxycodone [From Percocet] Allergy Itching Verified 10/10/23 11:32
Home Medications
dicyclomine 20 mg tablet 20 mg PO QID PRN abdominal cramping #10 tabs 09/26/23
Black Seed Oil 5 ml PO DAILY Supplement 10/01/23
Delta-8 Thc And Cbd Gummies 0.5 tab PO BID Supplement 10/01/23
Lactobac no.2-Bifidobac no.1-S. thermo 112.5 billion cell capsule (Visbiome) 1 cap PO DAILY probiotic 10/01/23
Sea Murcia Jelly 1 dose PO DAILY Supplement 10/01/23
Super Greens Powder 1 packet PO DAILY Supplement 10/01/23
calcium carbonate 500 mg PO DAILY Supplement 10/01/23
cholecalciferol (vitamin D3) 25 mcg (1,000 unit) tablet (Vitamin D3) 25 mcg PO DAILY Supplement 10/01/23
hydrocortisone 2.5 % topical cream with perineal applicator (Anusol-HC) 1 applic NE DAILY PRN hemorrhoids #30 grams 10/01/23
omega 5-maw-vok-fish oil 1,000 mg (120 mg-180 mg) capsule (Fish Oil) 1 cap PO DAILY Supplement 10/01/23
ondansetron 8 mg disintegrating tablet 8 mg PO [id number] PRN nausea 10/01/23
vitamin B complex 1 tab PO DAILY Supplement 10/01/23
lorazepam 0.5 mg tablet (Ativan) 0.5 mg PO TID PRN nausea/cramping #30 tabs 10/10/23
Review of Systems
-
History Source: Patient
A 12 point ROS was completed and negative except as noted: Yes
Constitutional: Reports No Symptoms
EENT: Reports No Symptoms
Respiratory: Reports No Symptoms
Cardiac: Reports No Symptoms
Abdomen/GI: Reports See HPI
: Reports No Symptoms
Musculoskeletal: Reports No Symptoms
Skin: Reports No Symptoms
Neurological: Reports No Symptoms
Endocrine: Reports No Symptoms
Hematologic/Lymphatic: Reports No Symptoms
Psych: Reports No Symptoms
Physical Exam
Vital Signs
Vital Signs
Temp Pulse Resp BP Pulse Ox
98.7 F 99 16 93/64 99
10/12/23 21:30 10/12/23 21:30 10/12/23 21:30 10/12/23 21:30 10/12/23 21:30
Physical Exam
General: Well Developed, Well Nourished and No Apparent Distress
HEENT: NormoCephalic, Moist mucous membranes and Atraumatic
Respiratory: Clear
Cardiac: S1/S2 and Regular Rhythm; No Murmur or Rub
GI: Soft, Non Distended, Normal Bowel Sounds and Tender (diffusely ); No Organomegaly
Rectal: Deferred by Provider
Musculoskeletal: No Clubbing, No Cyanosis and No Edema
Skin: No Rash
Neuro: Nonfocal/grossly intact
Data Reviewed
-
Lab Data: Labs Reviewed by me
Old Records: Reviewed
Impression/Plan
-
IMPRESSION:
PLAN:
# Pancolitis with hematochezia in the setting of chemotherapy
-Hematochezia now improved
-Stool culture, C. difficile negative on 10/09
-IV fluids
-Zosyn
-Labs pending
-Continue dicyclomine
-Dilaudid as needed
-Zofran
-Clear liquid diet
Breast cancer on neoadjuvant chemotherapy
Anxiety/depression
-Continue Ativan as needed
Full code
DVT prophylaxis�SCDs
Clear liquid diet
[2023-10-12 22:59] LABS: Lactic Acid 0.9 mmol/L (0.7-2.0)
[2023-10-12 23:00] LABS: ALT (SGPT) 21 U/L (0-35); AST (SGOT) 25 U/L (14-36); Albumin 3.6 g/dl (3.5-5.0); Alkaline Phosphatase 69 U/L (38-126); Blood Urea Nitrogen 9 mg/dl (7-17); Calcium 9.1 mg/dl (8.4-10.2); Carbon Dioxide 27 mmol/L (22-30); Chloride 102 mmol/L (98-107); Glucose 99 mg/dl (70-99); Potassium 4.2 mmol/L (3.5-5.1); Sodium 135 mmol/L (135-145); Total Bilirubin 0.4 mg/dl (0.2-1.3); Total Protein 6.3 g/dl (6.3-8.2); eGFR > 60.00
[2023-10-12 23:11] VITALS: BP 109/74
[2023-10-12 23:12] LABS: Normal RBC Morphology No
[2023-10-12 23:13] LABS: Anisocytosis 1+; Hypochromasia 1+; Macrocytosis 2+; Tear Drop Red Blood Cells 1+
[2023-10-12] MEDS: FLUSH (NSS) 1 FLUSH IV (23:17)
[2023-10-13 01:05] VITALS: BP 115/74; BMI 25.9
[2023-10-13] MEDS: NSS 1000 IV ×3 (01:39→21:50)
[2023-10-13] MEDS: DILAUDID 0.5 MG IV ×2 (01:58→13:32)
[2023-10-13] MEDS: ZOSYN 50 IV ×4 (04:43→21:49)
[2023-10-13 07:40] VITALS: BP 107/67
[2023-10-13 07:47] LABS: % Basophils 0.8 % (0-2); % Eosinophils 6.9 % (0-6); % Immature Granulocytes 0.3 % (0-0.5); % Lymphocytes 25.4 % (20.5-51.1); % Monocytes 13.6 % (1.7-9.3); Absolute Eosinophils 0.3 10^3/uL (0-0.7); Absolute Monocytes 0.5 10^3/uL (0.1-0.6); Absolute Neutrophils 2.1 10^3/uL (1.4-6.5); Hematocrit 31.6 % (37.0-47.0); Hemoglobin 9.9 g/dL (12.0-16.0); Mean Corp Hgb Conc. 31.3 g/dL (33.0-37.0); Mean Corpuscular Hgb 26.8 pg (27.0-31.0); Mean Corpuscular Volume 85.6 fL (81.0-99.0); Mean Platelet Volume 10.9 fL (7.4-10.4); Nucleated Red Blood Cells % 0 %; Platelet Count 255 10^3/uL (130-400); Red Blood Cell Count 3.69 10^6/uL (4.20-5.40); Red Cell Dist. Width 22.1 % (11.5-14.5); White Blood Cell Count 3.9 10^3/uL (4.8-10.8)
[2023-10-13 08:43] LABS: ALT (SGPT) 18 U/L (0-35); AST (SGOT) 24 U/L (14-36); Albumin 2.7 g/dl (3.5-5.0); Alkaline Phosphatase 49 U/L (38-126); Blood Urea Nitrogen 6 mg/dl (7-17); Calcium 8.3 mg/dl (8.4-10.2); Carbon Dioxide 24 mmol/L (22-30); Chloride 107 mmol/L (98-107); Estimated Creatinine Clearance 104 ml/min; Glucose 95 mg/dl (70-99); Sodium 136 mmol/L (135-145); Total Bilirubin 0.4 mg/dl (0.2-1.3); Total Protein 5.2 g/dl (6.3-8.2); eGFR > 60.00
--- NOTE | 2023-10-13 13:04 | W.PN.HOSP.TC ---
Today's Communication/Plan
-
Pending stool study
Assessment / Plan
Assessment / Plan
Assessment:
Patient is a pleasant 33 years old with history of breast cancer on chemotherapy with Keytruda/Taxol/carboplatin who came to the ER with 3 weeks history of diarrhea found to have pancolitis.
Assessment/plan:
Sepsis secondary to pancolitis
Patient meets sepsis criteria on admission
Heart rate 99
WBCs 3.9
Respiratory rate 17
Temperature 98.8
Source of infection is pancolitis seen on CT scan
Continue IV fluid
IV antibiotic in form of Zosyn
Blood culture pending
Recent stool studies on October 09 came back negative including C. difficile, will repeat
Continue dicyclomine
Dilaudid as needed
Zofran
Clear liquid diet-advance as tolerated
If repeat stool studies negative will start Imodium.
Breast cancer on neoadjuvant chemotherapy
Anxiety/depression
-Continue Ativan as needed
Full code
DVT prophylaxis�SCDs
Clear liquid diet
Anticipated Discharge: > 48 hours
Subjective/Interval History
-
Date of Service: October 13, 2023
Patient seen and examined at bedside.
Patient still with significant watery diarrhea, reviewed stool studies done from October 09 which came back negative.
Repeat stool studies.
Started on Zosyn on admission.
Complaining of back pain relieved with Dilaudid.
Objective Data
-
Labs:
Laboratory Results
10/13/23
06:54
WBC 3.9 L
Hgb 9.9 L
Hct 31.6 L
Plt Count 255
Sodium 136
Potassium 4.0
Chloride 107
Carbon Dioxide 24
BUN 6 L
Creatinine 0.5 L
Glucose 95
Calcium 8.3 L
Total Bilirubin 0.4
AST 24
ALT 18
Alkaline Phosphatase 49
Vital Signs:
Vital Signs
Temp Pulse Resp BP Pulse Ox
98.8 F 98 17 107/67 98
10/13/23 07:40 10/13/23 07:40 10/13/23 07:40 10/13/23 07:40 10/13/23 10:20
I&O
10/12/23 10/13/23 10/14/23
06:59 06:59 06:59
Intake Total 480 / 480
Balance 480 / 480
Physical Exam
-
General: Well Developed and No Apparent Distress
HEENT: Normocephalic, Atraumatic and Moist Mucous Membranes
Respiratory: Clear to Auscultation
Cardiac: Regular Rhythm and S1/S2; Negative Murmur, Rub or Gallop
GI: Soft, Nontender, Nondistended and Normal Bowel Sounds; Negative Organomegaly
Rectal: Deferred by Provider
Musculoskeletal: No Clubbing, No Cyanosis and No Edema
Skin: Negative Rash
Neuro: Nonfocal/Grossly Intact
[2023-10-13 15:30] VITALS: BP 94/54
[2023-10-13 23:55] VITALS: BP 96/58
[2023-10-14] MEDS: DILAUDID 0.5 MG IV ×2 (01:11→21:26)
[2023-10-14] MEDS: ZOSYN 50 IV ×4 (04:09→21:22)
[2023-10-14 05:31] LABS: Hematocrit 30.2 % (37.0-47.0); Hemoglobin 9.6 g/dL (12.0-16.0); Mean Corp Hgb Conc. 31.8 g/dL (33.0-37.0); Mean Corpuscular Volume 85.1 fL (81.0-99.0); Mean Platelet Volume 10.8 fL (7.4-10.4); Platelet Count 276 10^3/uL (130-400); Red Blood Cell Count 3.55 10^6/uL (4.20-5.40); Red Cell Dist. Width 22.3 % (11.5-14.5); White Blood Cell Count 3.6 10^3/uL (4.8-10.8)
[2023-10-14 05:50] LABS: Blood Urea Nitrogen < 2 mg/dl (7-17); Calcium 8.4 mg/dl (8.4-10.2); Carbon Dioxide 25 mmol/L (22-30); Chloride 108 mmol/L (98-107); Estimated Creatinine Clearance 104 ml/min; Glucose 86 mg/dl (70-99); Potassium 4.1 mmol/L (3.5-5.1); Sodium 137 mmol/L (135-145); eGFR > 60.00
[2023-10-14 07:05] VITALS: BP 106/69
[2023-10-14] MEDS: NSS IV (09:13)
[2023-10-14 09:19] VITALS: BMI 25.9
[2023-10-14 13:31] LABS: % Basophils 0.9 % (0-2); % Immature Granulocytes 0.3 % (0-0.5); % Lymphocytes 30.1 % (20.5-51.1); % Monocytes 11.4 % (1.7-9.3); % Neutrophils 51.3 % (42.2-75.2); Absolute Eosinophils 0.2 10^3/uL (0-0.7); Absolute Monocytes 0.4 10^3/uL (0.1-0.6); Absolute Neutrophils 1.7 10^3/uL (1.4-6.5); Hemoglobin 10.3 g/dL (12.0-16.0); Mean Corp Hgb Conc. 32.2 g/dL (33.0-37.0); Mean Platelet Volume 10.4 fL (7.4-10.4); Nucleated Red Blood Cells % 0 %; Platelet Count 294 10^3/uL (130-400); Red Blood Cell Count 3.81 10^6/uL (4.20-5.40); Red Cell Dist. Width 22.6 % (11.5-14.5); White Blood Cell Count 3.3 10^3/uL (4.8-10.8)
--- NOTE | 2023-10-14 14:35 | CM ---
Met with patient at bedside; initial assessment completed
Pharmacy verified: [facility] [place]
Patient lives with parents/family in a multilevel home; 4 steps to enter; 14 steps between floors; powder room on the 1st floor; 2nd floor bedroom and bath; bath has tub/shower
PLOF: diagnosed w/ Breast Cancer 07/2023; receiving chemo; patient reports she is independent with ambulation, steps, ADLs; Drives; unemployed
SNF/Rehab/Home Health utilization history: none
Transportation: mother will provide ride home
Plan: discharge to home when medically stable; no needs anticipated
[2023-10-14 15:00] VITALS: BP 105/60
[2023-10-14] MEDS: NSS 1000 IV (15:59)
--- NOTE | 2023-10-14 16:26 | W.PN.HOSP.TC ---
Today's Communication/Plan
-
NPO except meds and ice chips/sips of clears
Continue antibiotics
Morning labs
Appreciate CRS, GI ad Oncology
Assessment / Plan
Assessment / Plan
Physical Exam
General: Well Developed and No Apparent Distress
HEENT: Normocephalic, Atraumatic and Moist Mucous Membranes
Respiratory: Clear to Auscultation
Cardiac: Regular Rhythm and S1/S2
GI: Soft, Nontender, Nondistended and Normal Bowel Sounds
Musculoskeletal: No Cyanosis and No Edema
Skin: Warm. Dry.
Neuro: Nonfocal/Grossly Intact
Assessment/Plan
Patient is a pleasant 33 years old with history of breast cancer on chemotherapy with Keytruda/Taxol/carboplatin who came to the ER with 3 weeks history of diarrhea found to have pancolitis.
Concern for Sepsis secondary to pancolitis
Concern for typhilitis
Patient met sepsis criteria on admission
Source of infection is pancolitis seen on CT scan
Continue IV fluids
IV antibiotic in form of Zosyn
Blood culture pending
Stool studies with negative C. Diff
Continue dicyclomine
Dilaudid as needed
Zofran prn
NPO except meds and sips/ice chips
Breast cancer on neoadjuvant chemotherapy
-Patient sees Dr. Alejandre colorectal surgeon outpatient
-Consulted colorectal, GI and oncology
Anxiety/depression
-Continue Ativan as needed
Full code
DVT Prophylaxis�Lovenox
NPO except medications and sips/ice chips
Anticipated Discharge: > 48 hours
Subjective/Interval History
-
Date of Service: October 14, 2023
Patient was seen and examined. She reported that her symptoms were overall better than when she came in.
Objective Data
-
Labs:
Laboratory Results
10/14/23 10/14/23
04:19 13:22
WBC 3.6 L 3.3 L
Hgb 9.6 L 10.3 L
Hct 30.2 L 32.0 L
Plt Count 276 294
Sodium 137
Potassium 4.1
Chloride 108 H
Carbon Dioxide 25
BUN < 2 L
Creatinine 0.5 L
Glucose 86
Calcium 8.4
Vital Signs:
Vital Signs
Temp Pulse Resp BP Pulse Ox
97.8 F 77 17 105/60 97
10/14/23 15:00 10/14/23 15:00 10/14/23 15:00 10/14/23 15:00 10/14/23 15:00
I&O
10/13/23 10/14/23 10/15/23
06:59 06:59 06:59
Intake Total 2880 / 2880
Balance 2880 / 2880
--- NOTE | 2023-10-14 16:26 | CON.CRS ---
Medical History
-
Chief Complaint: diarrhea
History of Present Illness:
Ms. Kaba is a 33 yo female who is undergoing treatment for breast cancer with Keytruda/taxol/carboplatin and Injectafer with last cycle on 09/18 who presents with ongoing diarrhea and abdominal cramping. She was initially seen by Dr. Alejandre in clinic
on 10/09 for diarrhea with rectal bleeding noted. Some hemorrhoids noted, but not enough to explain the degree of diarrhea and bleeding she was happening. She underwent outpatient work up including stool studies and CT imaging with negative stool
studies and CT findings of colitis and was advised to come to the the ED on Sunday for management as pancolitis was noted and diarrhea was persistent. She denies fevers, chills, nausea or vomiting. She has liquid stools approximately every 2 hours.
She denies fevers or chills. Does note some back pain, was previously taking Delta-8 thc with relief, but has been off since Ativan initiated as OP for cramping abdominal pain.
Past Medical History
Past Medical History: Cancer (breast) and Other (HPV)
Past Surgical History: (x2) and Other (breast biopsy, thyroid biopsy)
Social History
Tobacco: Non-Smoker
Alcohol: None
Drug: Marijuana (delta-8 for pain)
Living: With Family
Family History
Family History: Reviewed & Not Pertinent
Allergies / Home Medications
Allergy/AdvReac Type Severity Reaction Status Date / Time
acetaminophen [From Percocet] Allergy Itching Verified 10/10/23 11:32
oxycodone [From Percocet] Allergy Itching Verified 10/10/23 11:32
�Medication �Instructions �Recorded �Confirmed �Type
dicyclomine 20 mg tablet 20 mg PO QID PRN abdominal 09/26/23 10/12/23 Rx
cramping #10 tabs
Black Seed Oil 5 ml PO DAILY Supplement 10/01/23 10/12/23 History
Delta-8 Thc And Cbd Gummies 0.5 tab PO BID Supplement 10/01/23 10/12/23 History
Lactobac no.2-Bifidobac no.1-S. 1 cap PO DAILY probiotic 10/01/23 10/12/23 History
thermo 112.5 billion cell capsule
(Visbiome)
Sea Murcia Jelly 1 dose PO DAILY Supplement 10/01/23 10/12/23 History
Super Greens Powder 1 packet PO DAILY Supplement 10/01/23 10/12/23 History
calcium carbonate 500 mg PO DAILY Supplement 10/01/23 10/12/23 History
cholecalciferol (vitamin D3) 25 25 mcg PO DAILY Supplement 10/01/23 10/12/23 History
mcg (1,000 unit) tablet (Vitamin
D3)
hydrocortisone 2.5 % topical cream 1 applic SD DAILY PRN hemorrhoids 10/01/23 10/12/23 Rx
with perineal applicator #30 grams
(Anusol-HC)
omega 3-has-tsu-fish oil 1,000 mg 1 cap PO DAILY Supplement 10/01/23 10/12/23 History
(120 mg-180 mg) capsule (Fish Oil)
ondansetron 8 mg disintegrating 8 mg PO [id number] PRN nausea 10/01/23 10/12/23 History
tablet
vitamin B complex 1 tab PO DAILY Supplement 10/01/23 10/12/23 History
lorazepam 0.5 mg tablet (Ativan) 0.5 mg PO TID PRN nausea/cramping 10/10/23 10/12/23 Rx
#30 tabs
Review of Systems
-
History Source: Patient and Family
All other systems: Negative unless noted
A 10 point review of systems was completed, and was negative except as per HPI.
Physical Exam
Vital Signs
Temp 97.8 F 10/14/23 15:00
Pulse 77 10/14/23 15:00
Resp Rate 17 10/14/23 15:00
Blood pressure 105/60 10/14/23 15:00
SaO2 97 10/14/23 15:00
10/13/23 10/14/23 10/15/23
06:59 06:59 06:59
Actual Weight 64.155 kg
Body Mass Index (BMI) 25.9
Lab Results / Allergies
10/14/23 13:22
10/14/23 04:19
WBC 3.3 10^3/uL (4.8-10.8) L 10/14/23 13:22
Hgb 10.3 g/dL (12.0-16.0) L 10/14/23 13:22
Hct 32.0 % (37.0-47.0) L 10/14/23 13:22
Plt Count 294 10^3/uL (130-400) 10/14/23 13:22
Abs Immat Gran (auto) 0.0 10^3/uL (0-0.05) 10/14/23 13:22
Neutrophils % 51.3 % (42.2-75.2) 10/14/23 13:22
Allergy/AdvReac Type Severity Reaction Status Date / Time
acetaminophen [From Percocet] Allergy Itching Verified 10/10/23 11:32
oxycodone [From Percocet] Allergy Itching Verified 10/10/23 11:32
Physical Exam
General: Well Developed, Well Nourished and No Apparent Distress
HEENT: Moist Mucous Membranes
Respiratory: Non Labored Respirations
GI: Soft, Tender (mildly tender to the upper abd medially) and Distended (mild)
Skin: Warm and Dry
Neuro: Awake, Alert and AO x 3
Psych: Calm
Data Reviewed
-
CT Scan: Image Personally Visualized and interpreted, Report Reviewed by me, Discussed with Physician and Discussed with Patient
Labs: Labs Reviewed by me, Discussed with Physician and Discussed with Patient
Old Records: Reviewed
Assessment / Plan
-
Assessment:
33 yo female undergoing treatment for Breast CA at [facility] with Keytruda/taxol/carboplatin and Injectafer with last cycle on 09/18 (skipped this week d/t diarrhea symptoms) with 3 week history of diarrhea seen as an outpatient by Dr. Alejandre as she
began having rectal bleeding as well. Outpatient work up with negative stool studies and pancolitis on CT imaging prompting recommendation to present to ED for admission. AFVSS. Mild anemia and leukopenia noted, stable labs. Stooling approximately
q2h currently. Repeat stool studies have been sent as inpatient, thus far negative. Suspect typhlitis.
Plan:
Needs bowel rest, keep NPO except meds
Analgesics prn, notes Ativan has been working for the cramping abdominal pain she was having; would continue
IVF hydration
Continue ABX
Consult medical oncology
Trend cbc/cmp
SCD's while in bed. Hold chemical VTE ppx at this point given bloody stools.
[2023-10-14] MEDS: LOVENOX 40 MG SC (17:48)
[2023-10-14] MEDS: FLUSH (NSS) 2 FLUSH IV (21:27)
[2023-10-14 23:30] VITALS: BP 104/67
[2023-10-15] MEDS: ZOSYN 50 IV ×2 (03:29→09:02)
[2023-10-15] MEDS: DILAUDID 0.5 MG IV ×2 (03:29→22:32)
[2023-10-15] MEDS: NSS 1000 IV (05:03)
[2023-10-15 07:00] VITALS: BP 121/67
[2023-10-15 08:18] LABS: % Basophils 1.1 % (0-2); % Eosinophils 6.5 % (0-6); % Immature Granulocytes 0.3 % (0-0.5); % Lymphocytes 29.9 % (20.5-51.1); % Monocytes 11.1 % (1.7-9.3); % Neutrophils 51.1 % (42.2-75.2); Absolute Eosinophils 0.2 10^3/uL (0-0.7); Absolute Lymphocytes 1.1 10^3/uL (1.2-3.4); Absolute Monocytes 0.4 10^3/uL (0.1-0.6); Absolute Neutrophils 1.9 10^3/uL (1.4-6.5); Hematocrit 30.4 % (37.0-47.0); Hemoglobin 9.3 g/dL (12.0-16.0); Mean Corp Hgb Conc. 30.6 g/dL (33.0-37.0); Mean Corpuscular Hgb 26.5 pg (27.0-31.0); Mean Corpuscular Volume 86.6 fL (81.0-99.0); Nucleated Red Blood Cells % 0 %; Red Blood Cell Count 3.51 10^6/uL (4.20-5.40); Red Cell Dist. Width 22.2 % (11.5-14.5); White Blood Cell Count 3.7 10^3/uL (4.8-10.8)
[2023-10-15 08:38] LABS: ALT (SGPT) 16 U/L (0-35); AST (SGOT) 21 U/L (14-36); Albumin 2.8 g/dl (3.5-5.0); Alkaline Phosphatase 56 U/L (38-126); Blood Urea Nitrogen < 2 mg/dl (7-17); Calcium 8.8 mg/dl (8.4-10.2); Carbon Dioxide 26 mmol/L (22-30); Chloride 107 mmol/L (98-107); Estimated Creatinine Clearance 104 ml/min; Glucose 77 mg/dl (70-99); Potassium 3.9 mmol/L (3.5-5.1); Sodium 138 mmol/L (135-145); Total Bilirubin 0.4 mg/dl (0.2-1.3); Total Protein 5.3 g/dl (6.3-8.2); eGFR > 60.00
[2023-10-15 09:23] LABS: Mean Platelet Volume 10.8 fL (7.4-10.4); Platelet Count 230 10^3/uL (130-400)
--- NOTE | 2023-10-15 11:07 | CON.GI ---
Consultation
-
Date/Time Consultation Requested: 10/14/23 1241
Date/Time Consultation Performed: 10/15/23 1000
Requesting Provider: Dr Wood
Performing Provider: Dr Russell
Reason for Consultation: diarrhea
Medical History
Chief Complaint / HPI
Chief Complaint: diarrhea
History of Present Illness:
Stephanie is a 33yo W with h/o L breast cancer diagnosed 07/2023 on chemotherapy (keytruda/taxol/carbo) last 09/19/23 and thyroid cancer who presents with profuse nonbloody diarrhea. She started chemotherapy on 08/28 and her last dose was 09/19/23. She
went for carbo/taxol infusion on October 02 but it was not given due to her 2-3 wks of diarrhea. Initially it was a few times per day and now 10-12x/day. There is urgency but no abd cramping pain, fever or chills. She denies sick contacts or recent
abx. She was in ED twice prior to this admission for similar symptoms. She was given bentyl in the past with some improvement. She denies FH of CRC, crohn's or colitis. She has lost about 6-7lbs in the past few days due to this. Denies fever,
chills odynophagia, dysphagia, nausea/vomiting, blood in stools, constipation. She has never had EGD/colonoscopy in the past
Past Medical History
Past Medical History: Other (Breast cancer, Thyroid cancer)
Past Surgical History: Other (PORT placement, breast bx, thyroid bx, Csection x2)
Social History
Tobacco: Non-Smoker
Alcohol: None
Drug: Marijuana (THC gummies)
Living: With Family (mother and 2 kids (11 and 17yo ))
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
Family History
Family History: Other (Denies IBD or CRC)
Allergies / Home Medications
Allergy/AdvReac Type Severity Reaction Status Date / Time
oxycodone [From Percocet] Allergy Itching Verified 10/10/23 11:32
�Medication �Instructions �Recorded
dicyclomine 20 mg tablet 20 mg PO QID PRN abdominal 09/26/23
cramping #10 tabs
Black Seed Oil 5 ml PO DAILY Supplement 10/01/23
Delta-8 Thc And Cbd Gummies 0.5 tab PO BID Supplement 10/01/23
Lactobac no.2-Bifidobac no.1-S. 1 cap PO DAILY probiotic 10/01/23
thermo 112.5 billion cell capsule
(Visbiome)
Sea Murcia Jelly 1 dose PO DAILY Supplement 10/01/23
Super Greens Powder 1 packet PO DAILY Supplement 10/01/23
calcium carbonate 500 mg PO DAILY Supplement 10/01/23
cholecalciferol (vitamin D3) 25 25 mcg PO DAILY Supplement 10/01/23
mcg (1,000 unit) tablet (Vitamin
D3)
hydrocortisone 2.5 % topical cream 1 applic [place] DAILY PRN hemorrhoids 10/01/23
with perineal applicator #30 grams
(Anusol-HC)
omega 3-gaw-eje-fish oil 1,000 mg 1 cap PO DAILY Supplement 10/01/23
(120 mg-180 mg) capsule (Fish Oil)
ondansetron 8 mg disintegrating 8 mg PO [id number] PRN nausea 10/01/23
tablet
vitamin B complex 1 tab PO DAILY Supplement 10/01/23
lorazepam 0.5 mg tablet (Ativan) 0.5 mg PO TID PRN nausea/cramping 10/10/23
#30 tabs
Review of Systems
-
All other systems: A 12 pt ROS was Negative except as stated above in HPI
Vital Signs
Temp Pulse Resp BP Pulse Ox
98.6 F 79 18 121/67 99
10/15/23 07:00 10/15/23 07:00 10/15/23 07:00 10/15/23 07:00 10/15/23 07:00
Physical Exam
Exam
GEN: No acute distress, conversant, pleasant
HEENT: anicteric, extraocular movements intact, clear oropharynx without exudates, PORT in chest
CV: RRR
RESP: clear to auscultation bilaterally
GI: soft, not distended, not tender to palpation, normal active bowel sounds, no hepatosplenomegaly
EXT: warm, well perfused, trace edema bilaterally
NEURO: AAOx3, non-focal
Results
WBC 3.7 10^3/uL (4.8-10.8) L 10/15/23 06:56
Hgb 9.3 g/dL (12.0-16.0) L 10/15/23 06:56
Hct 30.4 % (37.0-47.0) L 10/15/23 06:56
MCV 86.6 fL (81.0-99.0) 10/15/23 06:56
Plt Count 230 10^3/uL (130-400) D 10/15/23 06:56
Absolute Neuts (auto) 1.9 10^3/uL (1.4-6.5) 10/15/23 06:56
Sodium 138 mmol/L (135-145) 10/15/23 06:56
Potassium 3.9 mmol/L (3.5-5.1) 10/15/23 06:56
Chloride 107 mmol/L (98-107) 10/15/23 06:56
Carbon Dioxide 26 mmol/L (22-30) 10/15/23 06:56
BUN < 2 mg/dl (7-17) L 10/15/23 06:56
Creatinine 0.5 mg/dL (0.6-1.0) L 10/15/23 06:56
Calcium 8.8 mg/dl (8.4-10.2) 10/15/23 06:56
Total Bilirubin 0.4 mg/dl (0.2-1.3) 10/15/23 06:56
AST 21 U/L (14-36) 10/15/23 06:56
ALT 16 U/L (0-35) 10/15/23 06:56
Alkaline Phosphatase 56 U/L (38-126) 10/15/23 06:56
Diagnostic Image Results:
CTAP: 1. Pronounced colonic thickening involving the cecum, and ascending colon, hepatic flexure, and proximal transverse colon, consistent with colitis. Colitis is likely infectious or inflammatory.
2. No evidence of pneumatosis intestinalis or extraluminal air.
Prior GI Procedures:
EGD: none
Colonoscopy: none
Assessment / Plan
-
Stephanie is a 33yo W with h/o L breast cancer diagnosed 07/2023 on chemotherapy (keytruda/taxol/carbo) last 09/19/23 and thyroid cancer who presents with profuse nonbloody diarrhea. She started chemotherapy on 08/28 and her last dose was 09/19/23. CTAP
shows R sided colonic thickening concern for colitis.
Impression
- Profuse non bloody diarrhea with R sided colonic thickening
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
Less likely infections given negative stool studies
- L breast cancer diagnosed 07/2023
- Thyroid cancer
- Iron def anemia
s/p IV iron 10/02
Recommendations
- Ideally to formally diagnose immunotherapy related colitis, colonic biopsies are needed. However given most inflammation is on R colon on CT scan flex sigm would not reach. Clinically as of today she would not tolerate colonic prep
- Stool studies negative
- Recommend trial of IV steroids and observe stool output
- She will keep stool journal
- Adv to CLD
- Await oncology and CRC recs
Above d/w pt and hospitalist. Will follow with you
Data Reviewed
-
CT Scan: Report Reviewed by me
-
-
Thank you for consultation and allowing me to participate in the patient's care. Please call the aeronautical test engineer GI physician during the after hours with any questions or concerns.
[2023-10-15] MEDS: SOLU-MEDROL PF 40 MG IV ×2 (11:43→23:39)
--- NOTE | 2023-10-15 12:42 | W.PN.HOSP.TC ---
Today's Communication/Plan
-
continue IVF
start steroids as per GI
Assessment / Plan
Assessment / Plan
Assessment/Plan
Patient is a pleasant 33 years old with history of breast cancer on chemotherapy with Keytruda/Taxol/carboplatin who came to the ER with 3 weeks history of diarrhea found to have pancolitis.
Doubt Sepsis most likely inflammatory etiology related to Keytruda. Doubt infectious source
Source of infection is pancolitis seen on CT scan
Continue IV fluids
IV antibiotic in form of Zosyn now stopped. Call placed to confirm with GI, await return call
case reviewed with Dr. Russell
Blood culture pending
Stool studies with negative C. Diff
Continue dicyclomine
Dilaudid as needed
Zofran prn
GI resumed clear liquid diet
Breast cancer on neoadjuvant chemotherapy
-Patient sees Dr. Alejandre colorectal surgeon outpatient, reviewed with Dr. Alejandre
-Consulted colorectal, GI and oncology
Anxiety/depression
-Continue Ativan as needed
Full code
DVT Prophylaxis�Lovenox, will resume, risk/benefit
To start SoluMedrol 40 mg q12h
Anticipated Discharge: 24 - 48 hours
Subjective/Interval History
-
Date of Service: October 15, 2023
Awake, alert, conversant, still with diarrhea
Objective Data
-
Labs:
Laboratory Results
10/15/23
06:56
WBC 3.7 L
Hgb 9.3 L
Hct 30.4 L
Plt Count 230 D
Sodium 138
Potassium 3.9
Chloride 107
Carbon Dioxide 26
BUN < 2 L
Creatinine 0.5 L
Glucose 77
Calcium 8.8
Total Bilirubin 0.4
AST 21
ALT 16
Alkaline Phosphatase 56
Vital Signs:
Vital Signs
Temp Pulse Resp BP Pulse Ox
98.6 F 79 18 121/67 99
10/15/23 07:00 10/15/23 07:00 10/15/23 07:00 10/15/23 07:00 10/15/23 07:00
I&O
10/14/23 10/15/23 10/16/23
06:59 06:59 06:59
Intake Total 2880 / 2880 940 / 940
Balance 2880 / 2880 940 / 940
Review of Systems
-
History Source: Patient, Physician (reviewed with Dr. Alejandre and Dr. Russell) and Coordinated Provider (pt evaluated with MADELINE Gasca in room entire visit)
Constitutional: Denies Fever
EENT: Reports No Symptoms Reported
Respiratory: Reports No Symptoms
Cardiac: Reports No Symptoms
Abdomen/GI: Reports Diarrhea (unchanged); Denies Abdominal Pain, Nausea or Vomiting
Genitourinary: Reports No Symptoms
Neuro: Reports No Symptoms
Physical Exam
-
General: Well Developed, Well Nourished and No Apparent Distress
HEENT: Normocephalic, Atraumatic and Moist Mucous Membranes
Respiratory: Clear to Auscultation; Negative Wheezes, Rales or Rhonchi
Cardiac: Regular Rhythm and S1/S2
GI: Soft, Nontender and Nondistended
Musculoskeletal: No Clubbing, No Cyanosis and No Edema
[2023-10-15 15:01] VITALS: BP 115/76
--- NOTE | 2023-10-15 15:20 | CON.ONC ---
Impression
Impression
diarrhea - colitis on CT - unclear etiology
h/o breast cancer - stage IIIC - triple neg - carbo/taxol/keytruda - 08/28 - followed by weekly carbo/taxol - last 09/18
Plan
Plan
1. Diarrhea - pancolitis on CT imaging
-initially bloody diarrhea - now watery - no blood
-GI / surgery following
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
-follow clinically/ supportive care
Will continue to follow with you.
Patient History
History of Present Illness
33y/o female seen in consultation regarding h/o breast cancer, triple negative, stage IIIC, currently undergoing neoadjuvant treatment w/ Dr. Morris - carboplatin/ paclitaxel, and keytruda.
She received her 1st and only treatment w/ keytruda on 08/29/23 along w/ weekly carboplatin/ paclitaxel x3. Her last chemotherapy treatment ws 09/18. On 09/29, she developed bloody diarrhea, prompting ER evaluation and eventual consultation w/ Dr. Alejandre
colorectal surgery. Her diarrhea persisted, evolving into more watery consistency over the next few weeks. CT imaging was performed as outpt on 10/11 revealing pronounced colonic thickening involving the cecum, and ascending colon, hepatic flexure,
and proximal transverse colon, consistent with colitis.
She subsequently presented to [facility] and has been admitted for management of colitis. 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
She notes continued diarrhea. No blood in her stool. No SOB or chest pain. No fevers or chills. She has some abdominal discomfort.
Past-Medical/Surgical History
PMH:
breast cancer - stage IIIC - triple negative - carbo/taxol/keytruda - first 08/28 followed by weekly carbo/taxol - last 09/18 - Dr. Morris
Thyroid nodule
iron deficiency
schwannoma -acoustic nerve - 2021
PSH:
medi placement
breast bx
thyroid bx
Csection x2
SH:
no tobacco, no ETOH
FH: noncontributory
Allergies: oxycodone
Patient Medication
�Medication �Instructions �Recorded �Confirmed �Last Taken �Type
dicyclomine 20 mg tablet 20 mg PO QID PRN abdominal 09/26/23 10/12/23 10/07/23 Rx
cramping #10 tabs
Black Seed Oil 5 ml PO DAILY Supplement 10/01/23 10/12/23 Unknown History
Delta-8 Thc And Cbd Gummies 0.5 tab PO BID Supplement 10/01/23 10/12/23 10/10/23 History
Lactobac no.2-Bifidobac no.1-S. 1 cap PO DAILY probiotic 10/01/23 10/12/23 10/10/23 History
thermo 112.5 billion cell capsule
(Visbiome)
Sea [place]cia Jelly 1 dose PO DAILY Supplement 10/01/23 10/12/23 10/03/23 History
Super Greens Powder 1 packet PO DAILY Supplement 10/01/23 10/12/23 10/03/23 History
calcium carbonate 500 mg PO DAILY Supplement 10/01/23 10/12/23 Unknown History
cholecalciferol (vitamin D3) 25 25 mcg PO DAILY Supplement 10/01/23 10/12/23 Unknown History
mcg (1,000 unit) tablet (Vitamin
D3)
hydrocortisone 2.5 % topical cream 1 applic NV DAILY PRN hemorrhoids 10/01/23 10/12/23 10/10/23 Rx
with perineal applicator #30 grams
(Anusol-HC)
omega 4-kid-qef-fish oil 1,000 mg 1 cap PO DAILY Supplement 10/01/23 10/12/23 Unknown History
(120 mg-180 mg) capsule (Fish Oil)
ondansetron 8 mg disintegrating 8 mg PO [id number] PRN nausea 10/01/23 10/12/23 Unknown History
tablet
vitamin B complex 1 tab PO DAILY Supplement 10/01/23 10/12/23 10/03/23 History
lorazepam 0.5 mg tablet (Ativan) 0.5 mg PO TID PRN nausea/cramping 10/10/23 10/12/23 Unknown Rx
#30 tabs
Active Medications
Generic Name Dose Route Start Last Admin
Trade Name Freq PRN Reason Stop Dose Admin
Acetaminophen 650 mg 10/14/23 19:10
Acetaminophen 325 Mg Tablet PO 11/11/23 19:09
Q6HPRN PRN
mild pain
Enoxaparin Sodium 40 mg 10/14/23 18:00 10/14/23 17:48
Enoxaparin Sodium 40 Mg/0.4 Ml Syringe SC 11/11/23 17:59 40 mg
QPM HOLLAND Administration
Hydromorphone HCl 0.5 mg 10/13/23 01:04 10/15/23 03:29
Hydromorphone 0.5 Mg/0.5 Ml Syringe IV 10/27/23 01:03 0.5 mg
Q4HPRN PRN Administration
severe pain
Sodium Chloride 1,000 mls @ 75 mls/hr 10/14/23 13:15 10/15/23 05:03
Nss IV 1,000 mls
.[id number] HOLLAND Administration
Lorazepam 0.5 mg 10/13/23 01:04
Lorazepam 0.5 Mg Tablet PO 11/10/23 01:03
TID PRN
nausea/cramping
Methylprednisolone Sodium Succinate 40 mg 10/15/23 12:00 10/15/23 11:43
Methylprednisolone Pf 40 Mg/Ml Vial IV 11/12/23 11:59 40 mg
Q12H HOLLAND Administration
Ondansetron HCl 4 mg 10/13/23 01:04
Ondansetron 4 Mg/2 Ml Vial IV 11/10/23 01:03
Q6HPRN PRN
nausea and vomiting
Sodium Chloride 0 flush 10/12/23 23:00 10/14/23 21:27
Sodium Chloride 0.9% (Flush) Syringe IV 11/09/23 22:59 2 flush
PER PROTOCOL HOLLAND Administration
Review of Systems
-
A ROS was performed w/ pertinent findings as per HPI.
Physical Exam
-
General: Well Developed, Well Nourished and No Apparent Distress
HEENT: Negative Jaundice
Neurology: Non Focal
Labs
Lab Results
WBC 3.7 10^3/uL (4.8-10.8) L 10/15/23 06:56
RBC 3.51 10^6/uL (4.20-5.40) L 10/15/23 06:56
Hgb 9.3 g/dL (12.0-16.0) L 10/15/23 06:56
Hct 30.4 % (37.0-47.0) L 10/15/23 06:56
MCV 86.6 fL (81.0-99.0) 10/15/23 06:56
MCH 26.5 pg (27.0-31.0) L 10/15/23 06:56
MCHC 30.6 g/dL (33.0-37.0) L 10/15/23 06:56
RDW 22.2 % (11.5-14.5) H 10/15/23 06:56
Plt Count 230 10^3/uL (130-400) D 10/15/23 06:56
MPV 10.8 fL (7.4-10.4) H 10/15/23 06:56
Abs Immat Gran (auto) 0.0 10^3/uL (0-0.05) 10/15/23 06:56
Absolute Neuts (auto) 1.9 10^3/uL (1.4-6.5) 10/15/23 06:56
Absolute Lymphs (auto) 1.1 10^3/uL (1.2-3.4) L 10/15/23 06:56
Absolute Monos (auto) 0.4 10^3/uL (0.1-0.6) 10/15/23 06:56
Absolute Eos (auto) 0.2 10^3/uL (0-0.7) 10/15/23 06:56
Absolute Basos (auto) 0.0 10^3/uL (0-0.2) 10/15/23 06:56
Immature Gran % 0.3 % (0-0.5) 10/15/23 06:56
Neutrophils % 51.1 % (42.2-75.2) 10/15/23 06:56
Lymphocytes % 29.9 % (20.5-51.1) 10/15/23 06:56
Monocytes % 11.1 % (1.7-9.3) H 10/15/23 06:56
Eosinophils % 6.5 % (0-6) H 10/15/23 06:56
Basophils % 1.1 % (0-2) 10/15/23 06:56
Creatinine 0.5 mg/dL (0.6-1.0) L 10/15/23 06:56
Vital Signs
Vital Signs
Temp Pulse Resp BP Pulse Ox
98.6 F 106 17 115/76 97
10/15/23 15:01 10/15/23 15:01 10/15/23 15:01 10/15/23 15:01 10/15/23 15:01
[2023-10-15] MEDS: NSS IV (17:03)
[2023-10-15 23:23] VITALS: BP 95/69
[2023-10-16] MEDS: DILAUDID 0.5 MG IV ×2 (05:35→23:29)
[2023-10-16 06:28] LABS: % Basophils 0.3 % (0-2); % Immature Granulocytes 0.5 % (0-0.5); % Lymphocytes 12.8 % (20.5-51.1); % Monocytes 1.1 % (1.7-9.3); % Neutrophils 85.3 % (42.2-75.2); Absolute Lymphocytes 0.5 10^3/uL (1.2-3.4); Absolute Neutrophils 3.2 10^3/uL (1.4-6.5); Hematocrit 34.8 % (37.0-47.0); Hemoglobin 10.9 g/dL (12.0-16.0); Mean Corp Hgb Conc. 31.3 g/dL (33.0-37.0); Mean Corpuscular Hgb 26.9 pg (27.0-31.0); Mean Corpuscular Volume 85.9 fL (81.0-99.0); Mean Platelet Volume 10.1 fL (7.4-10.4); Nucleated Red Blood Cells % 0 %; Platelet Count 273 10^3/uL (130-400); Red Blood Cell Count 4.05 10^6/uL (4.20-5.40); Red Cell Dist. Width 21.7 % (11.5-14.5); White Blood Cell Count 3.8 10^3/uL (4.8-10.8)
[2023-10-16 07:00] VITALS: BP 103/64
[2023-10-16 07:05] LABS: Blood Urea Nitrogen 6 mg/dl (7-17); Calcium 9.5 mg/dl (8.4-10.2); Carbon Dioxide 21 mmol/L (22-30); Chloride 105 mmol/L (98-107); Estimated Creatinine Clearance 104 ml/min; Glucose 94 mg/dl (70-99); Potassium 4.2 mmol/L (3.5-5.1); Sodium 138 mmol/L (135-145); eGFR > 60.00
[2023-10-16] MEDS: NSS 1000 IV ×2 (08:50→22:09)
[2023-10-16] MEDS: SOLU-MEDROL PF 40 MG IV (11:30)
--- NOTE | 2023-10-16 12:01 | W.PN.HOSP.TC ---
Today's Communication/Plan
-
continue current Tx, advance diet as per GI
Assessment / Plan
Assessment / Plan
Assessment/Plan
Patient is a pleasant 33 years old with history of breast cancer on chemotherapy with Keytruda/Taxol/carboplatin who came to the ER with 3 weeks history of diarrhea found to have pancolitis.
Doubt Sepsis most likely inflammatory etiology related to Keytruda. Doubt infectious source
Source of infection is pancolitis seen on CT scan
Continue IV fluids
IV antibiotic in form of Zosyn now stopped by Dr. Russell
Blood culture pending
Stool studies with negative C. Diff
Continue dicyclomine
Dilaudid as needed
Zofran prn
GI resumed clear liquid diet, hopefully advance over next 24 hrs
Breast cancer on neoadjuvant chemotherapy
-Patient sees Dr. Alejandre colorectal surgeon outpatient, reviewed with Dr. Alejandre 10/14
-Consulted colorectal, GI and oncology
Anxiety/depression
-Continue Ativan as needed
Full code
DVT Prophylaxis�Lovenox, will resume, risk/benefit, pt made aware if notes blood in stool to let nursing know
Now started on SoluMedrol 40 mg q12h
Anticipated Discharge: 24 - 48 hours
Subjective/Interval History
-
Date of Service: October 16, 2023
Was having persistent diarrhea last evening, but no episodes this morning yet
Objective Data
-
Labs:
Laboratory Results
10/16/23
06:04
WBC 3.8 L
Hgb 10.9 L
Hct 34.8 L
Plt Count 273
Sodium 138
Potassium 4.2
Chloride 105
Carbon Dioxide 21 L
BUN 6 L
Creatinine 0.4 L
Glucose 94
Calcium 9.5
Vital Signs:
Vital Signs
Temp Pulse Resp BP Pulse Ox
98.0 F 105 17 103/64 98
10/16/23 07:00 10/16/23 07:00 10/16/23 07:00 10/16/23 07:00 10/16/23 09:48
I&O
10/15/23 10/16/23 10/17/23
06:59 06:59 06:59
Intake Total 940 / 940 1260 / 1260
Balance 940 / 940 1260 / 1260
Review of Systems
-
History Source: Patient and Coordinated Provider
Constitutional: Denies Fever
EENT: Reports No Symptoms Reported
Respiratory: Reports No Symptoms
Cardiac: Reports No Symptoms
Abdomen/GI: Reports Abdominal Pain (better) and Diarrhea (possibly lessening); Denies Nausea or Vomiting
Genitourinary: Reports No Symptoms
Physical Exam
-
General: Well Developed, Well Nourished and No Apparent Distress
HEENT: Normocephalic, Atraumatic and Moist Mucous Membranes
Respiratory: Clear to Auscultation; Negative Wheezes, Rales or Rhonchi
Cardiac: Regular Rhythm and S1/S2
GI: Soft, Nontender and Nondistended
Musculoskeletal: No Clubbing, No Cyanosis and No Edema
--- NOTE | 2023-10-16 12:34 | W.PN.GI.CBS2 ---
Today's Communication / Plan
-
Adv diet to LRD
continue steroids
added questran
Assessment / Plan
-
Stephanie is a 33yo W with h/o L breast cancer diagnosed 07/2023 on chemotherapy (keytruda/taxol/carbo) last 09/19/23 and thyroid cancer who presents with profuse nonbloody diarrhea. She started chemotherapy on 08/28 and her last dose was 09/19/23. CTAP
shows R sided colonic thickening concern for colitis.
Impression
- Profuse non bloody diarrhea with R sided colonic thickening
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
Less likely infections given negative stool studies
- L breast cancer diagnosed 07/2023
- Thyroid cancer
- Iron def anemia
s/p IV iron 10/02
Recommendations
- Ideally to formally diagnose immunotherapy related colitis, colonic biopsies are needed. However given most inflammation is on R colon on CT scan flex sigm would not reach. If symptoms do not improve will need a colonoscopy when able to tolerate
prep and probable Remicade if no improvement with steroids
- May need to hold or discontinue Keytruda moving forward but will defer decision to oncology
- Stool studies negative
- started trial of IV steroids 10/14 and symptoms seem to be improving and her fecal calprotectin is also significantly elevated > 3000
- Will advance diet to low residue diet
- Also added Questran
Subjective
Subjective
Date of Service: October 16, 2023
Diarrhea is slightly improved, no further rectal bleeding. Also denies any fevers or chills, no abdominal pain, no nausea or vomiting
Objective
Data Reviewed
Laboratory Data:
Laboratory Results
10/16/23 06:04
10/16/23 06:04
Laboratory Results
Total Bilirubin 0.4 mg/dl (0.2-1.3) 10/15/23 06:56
AST 21 U/L (14-36) 10/15/23 06:56
ALT 16 U/L (0-35) 10/15/23 06:56
Alkaline Phosphatase 56 U/L (38-126) 10/15/23 06:56
Vital Signs and I&O:
Vital Signs
Temp Pulse Resp BP Pulse Ox
98.0 F 105 17 103/64 98
10/16/23 07:00 10/16/23 07:00 10/16/23 07:00 10/16/23 07:00 10/16/23 09:48
I&O
10/15/23 10/16/23 10/17/23
06:59 06:59 06:59
Intake Total 940 / 940 1260 / 1260
Balance 940 / 940 1260 / 1260
Physical Exam
Physical Exam
Cardiology: Normal Sinus Rhythm
Pulmonary: Clear
GI: Soft, Non Distended, Non Tender and Normal Bowel Sounds
[2023-10-16] MEDS: QUESTRAN 4 GRAM PO ×2 (12:53→20:23)
--- NOTE | 2023-10-16 13:38 | W.PN.ONC ---
Today's Communication / Plan
-
Steroids started yesterday afternoon. Too early to tell whether she is benefiting from them. We will continue to follow.
Impression
Impression
diarrhea - colitis on CT - unclear etiology; presumptive immunotherapy related
h/o breast cancer - stage IIIC - triple neg - carbo/taxol/keytruda - 08/28 - followed by weekly carbo/taxol - last 09/18
Plan
Plan
1. Diarrhea - pancolitis on CT imaging
-initially bloody diarrhea - now watery - no blood
-GI / surgery following
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
-follow clinically/ supportive care
Will continue to follow with you.
Subjective/Objective
Subjective/Objective
She thinks her diarrhea is about the same. She is having no abdominal pain. Her appetite is fair. Examination is unchanged.
Vital Signs:
Vital Signs
Temp Pulse Resp BP Pulse Ox
98.0 F 105 17 103/64 98
10/16/23 07:00 10/16/23 07:00 10/16/23 07:00 10/16/23 07:00 10/16/23 09:48
Lab Results:
Laboratory Data
WBC 3.8 10^3/uL (4.8-10.8) L 10/16/23 06:04
Hgb 10.9 g/dL (12.0-16.0) L 10/16/23 06:04
Plt Count 273 10^3/uL (130-400) 10/16/23 06:04
eGFR > 60.00 10/16/23 06:04
[2023-10-16 15:00] VITALS: BP 123/79
--- NOTE | 2023-10-16 15:45 | CM ---
Reviewed chart, talked to outpatient infusion to update that patient will most likely not be at her appointment tomorrow.
Plan: Case management will continue to follow and assist with discharge planning. Home when stable.
[2023-10-16] MEDS: LOVENOX 40 MG SC (17:29)
[2023-10-16 23:00] VITALS: BP 117/78
[2023-10-17] MEDS: TYLENOL 650 MG PO (04:09)
[2023-10-17] MEDS: BENADRYL 25 MG PO (04:09)
--- NOTE | 2023-10-17 04:45 | PTCARENOTE ---
pt c/o slight itching around 0345. pt believes itching is d/t dilaudid. last dose of dilaudid was given 2329. no rash seen, pt states 'it hasnt been really bad, but i am itchy'. DON Osborn notified and stat benadryl ordered. pt states she felt
relief from benadryl. call miller within reach.
[2023-10-17] MEDS: SOLU-MEDROL PF 40 MG IV ×2 (06:06→18:02)
[2023-10-17 06:24] LABS: % Basophils 0.6 % (0-2); % Eosinophils 0.3 % (0-6); % Immature Granulocytes 0.3 % (0-0.5); % Lymphocytes 41.9 % (20.5-51.1); % Monocytes 13.7 % (1.7-9.3); % Neutrophils 43.2 % (42.2-75.2); Absolute Lymphocytes 1.3 10^3/uL (1.2-3.4); Absolute Monocytes 0.4 10^3/uL (0.1-0.6); Absolute Neutrophils 1.4 10^3/uL (1.4-6.5); Hematocrit 29.6 % (37.0-47.0); Hemoglobin 9.3 g/dL (12.0-16.0); Mean Corp Hgb Conc. 31.4 g/dL (33.0-37.0); Mean Corpuscular Hgb 27.2 pg (27.0-31.0); Mean Corpuscular Volume 86.5 fL (81.0-99.0); Mean Platelet Volume 10.6 fL (7.4-10.4); Nucleated Red Blood Cells % 0 %; Platelet Count 245 10^3/uL (130-400); Red Blood Cell Count 3.42 10^6/uL (4.20-5.40); Red Cell Dist. Width 22.5 % (11.5-14.5); White Blood Cell Count 3.1 10^3/uL (4.8-10.8)
[2023-10-17] MEDS: QUESTRAN 4 GRAM PO ×2 (07:21→21:16)
--- NOTE | 2023-10-17 07:40 | W.PN.GI.CBS2 ---
Today's Communication / Plan
-
added probiotics
continue IV steroids
Assessment / Plan
-
Stephanie is a 33yo W with h/o L breast cancer diagnosed 07/2023 on chemotherapy (keytruda/taxol/carbo) last 09/19/23 and thyroid cancer who presents with profuse nonbloody diarrhea. She started chemotherapy on 08/28 and her last dose was 09/19/23. CTAP
shows R sided colonic thickening concern for colitis.
Impression
- Profuse non bloody diarrhea with R sided colonic thickening
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
Less likely infections given negative stool studies
- L breast cancer diagnosed 07/2023
- Thyroid cancer
- Iron def anemia
s/p IV iron 10/02
Recommendations
- Ideally to formally diagnose immunotherapy related colitis, colonic biopsies are needed. However given most inflammation is on R colon on CT scan flex sigm would not reach. If symptoms do not improve will need a colonoscopy when able to tolerate
prep and probable Remicade if no improvement with steroids
- May need to hold or discontinue Keytruda moving forward but will defer decision to oncology
- Stool studies negative
- started trial of IV steroids 10/14 and symptoms seem to be improving and her fecal calprotectin is also significantly elevated > 3000
- Continue low residue diet
- Also added Questran
- added probiotics
- possible transition to PO steroids tomorrow and DC if diarrhea better tomorrow
Subjective
Subjective
Date of Service: October 17, 2023
Still with diarrhea but slowly improving, she did not have any episodes overnight and urgency is improving. No further blood in the stool. Tolerating diet, no nausea or vomiting, afebrile
Objective
Data Reviewed
Laboratory Data:
Laboratory Results
10/17/23 05:47
10/16/23 06:04
Laboratory Results
Total Bilirubin 0.4 mg/dl (0.2-1.3) 10/15/23 06:56
AST 21 U/L (14-36) 10/15/23 06:56
ALT 16 U/L (0-35) 10/15/23 06:56
Alkaline Phosphatase 56 U/L (38-126) 10/15/23 06:56
Vital Signs and I&O:
Vital Signs
Temp Pulse Resp BP Pulse Ox
98.0 F 97 17 117/78 96
10/16/23 23:00 10/16/23 23:00 10/16/23 23:00 10/16/23 23:00 10/16/23 23:00
I&O
10/16/23 10/17/23 10/18/23
06:59 06:59 06:59
Intake Total 1260 / 1260 2480 / 2480
Balance 1260 / 1260 2480 / 2480
Physical Exam
Physical Exam
Cardiology: Normal Sinus Rhythm
Pulmonary: Clear
GI: Soft, Non Distended, Non Tender and Normal Bowel Sounds
[2023-10-17 07:48] VITALS: BP 102/61
[2023-10-17] MEDS: VISBIOME 2 CAP PO (09:05)
[2023-10-17] MEDS: NSS 1000 IV (10:41)
--- NOTE | 2023-10-17 12:25 | PN.CDI ---
CDI
- -
CDI:
Physician Documentation Request
Admit Date: 10/12/23 23:05
Dear Doctor Emi,
Please review the following and provide your response in the progress notes.
Clinical Indicators:
10/11 Pt admitted with pancolitis
10/14 PN: ' h/o L breast cancer diagnosed 07/2023 on chemotherapy (keytruda/taxol/carbo) last 09/19/23 and thyroid cancer who presents with profuse nonbloody diarrhea.'
'suspect immunotherapy related colitis'
WBC as note:
Laboratory Tests
10/13/23 10/14/23 10/17/23
06:54 13:22 05:47
WBC 3.9 L 3.3 L 3.1 L
Based on the above, could you clarify in the progress notes, the appropriate diagnosis, if significant, that supports the above abnormalities and additional evaluation, monitoring and/or treatment rendered:
immunocompromised
normal immune status
Other
Use of terms such as suspected, likely, concern for, or probable (associated with a specific diagnosis that is being evaluated, monitored, or treated as if it exists) are acceptable and can be coded in the inpatient setting, when documented at the
time of discharge.
Thank you,
Asha Hyde RN, BSN
CDI Specialist
Available via [place] [employer]
Please use your independent medical judgment in providing your response.
--- NOTE | 2023-10-17 14:33 | W.PN.ONC2 ---
Today's Communication / Plan
-
Monitor diarrhea
continue steroids -consider transition to oral steroids tomorrow
Impression
Impression
diarrhea - colitis on CT - unclear etiology; presumptive immunotherapy related
h/o breast cancer - stage IIIC - triple neg - carbo/taxol/keytruda - 08/28 - followed by weekly carbo/taxol - last 09/18
leukopenia/lymphopenia
normocytic anemia -s/p IV iron 10/02
Plan
Plan
Diarrhea - pancolitis on CT imaging-GI / surgery following
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
-on Questran, probiotic, and low residue diet
Subjective/Objective
Subjective
afebrile, no hypoxia or hypotension
improved diarrhea
denies pain
Vital Signs:
Vital Signs
Temp Pulse Resp BP Pulse Ox
98 F 69 16 102/61 98
10/17/23 07:48 10/17/23 07:48 10/17/23 07:48 10/17/23 07:48 10/17/23 09:21
Lab Results:
Laboratory Data
WBC 3.1 10^3/uL (4.8-10.8) L 10/17/23 05:47
Hgb 9.3 g/dL (12.0-16.0) L 10/17/23 05:47
Plt Count 245 10^3/uL (130-400) 10/17/23 05:47
eGFR > 60.00 10/16/23 06:04
Physical Exam
HEENT: No Jaundice
Cardiology: Normal Sinus Rhythm
Pulmonary: Clear
GI: Soft
Extremities: No Edema
Review of Systems
Review of Systems
Review of systems notable for subjective, otherwise negative
[2023-10-17] MEDS: DILAUDID 0.5 MG IV (14:53)
--- NOTE | 2023-10-17 15:23 | W.PN.HOSP.TC ---
Today's Communication/Plan
-
diet advanced
stop IVF
Assessment / Plan
Assessment / Plan
Assessment/Plan
Patient is a pleasant 33 years old with history of breast cancer on chemotherapy with Keytruda/Taxol/carboplatin who came to the ER with 3 weeks history of diarrhea found to have pancolitis.
Doubt Sepsis most likely inflammatory etiology related to Keytruda. Doubt infectious source
Source of infection is pancolitis seen on CT scan
Continue IV fluids
IV antibiotic in form of Zosyn now stopped by Dr. Russell
Blood culture pending
Stool studies with negative C. Diff
Continue dicyclomine
Dilaudid as needed
Zofran prn
GI resumed low residue diet and she is tolerating
discussed with Dr. Bajwa, in pt with cancer and on Keytruda, by definition should be considered, immunocompromised
Breast cancer on neoadjuvant chemotherapy
-Patient sees Dr. Alejandre colorectal surgeon outpatient, reviewed with Dr. Alejandre 10/14
-Consulted colorectal, GI and oncology
Anxiety/depression
-Continue Ativan as needed
Full code
DVT Prophylaxis�Lovenox, will resume, risk/benefit, pt made aware if notes blood in stool to let nursing know
Now started on SoluMedrol 40 mg q12h. Assuming will be dc on steroids, will defer to GI correct dosing prior to dc
Anticipated Discharge: 24 - 48 hours
Subjective/Interval History
-
Date of Service: October 17, 2023
Generally feeling better,
Objective Data
-
Labs:
Laboratory Results
10/17/23
05:47
WBC 3.1 L
Hgb 9.3 L
Hct 29.6 L
Plt Count 245
Vital Signs:
Vital Signs
Temp Pulse Resp BP Pulse Ox
98 F 69 16 102/61 98
10/17/23 07:48 10/17/23 07:48 10/17/23 07:48 10/17/23 07:48 10/17/23 09:21
I&O
10/16/23 10/17/23 10/18/23
06:59 06:59 06:59
Intake Total 1260 / 1260 2480 / 2480
Balance 1260 / 1260 2480 / 2480
Review of Systems
-
History Source: Patient and Coordinated Provider
Constitutional: Denies Fever
EENT: Reports No Symptoms Reported
Respiratory: Reports No Symptoms
Cardiac: Reports No Symptoms
Abdomen/GI: Reports Abdominal Pain (better) and Diarrhea (beginning to firm and freq down from 12x per day to ~6x no blood in stool noted); Denies Nausea or Vomiting
Genitourinary: Reports No Symptoms
Physical Exam
-
General: Well Developed, Well Nourished and No Apparent Distress
HEENT: Normocephalic, Atraumatic and Moist Mucous Membranes
Respiratory: Clear to Auscultation; Negative Wheezes, Rales or Rhonchi
Cardiac: Regular Rhythm and S1/S2
GI: Soft, Nontender and Nondistended
Musculoskeletal: No Clubbing, No Cyanosis and No Edema
[2023-10-17 15:41] VITALS: BP 103/69
[2023-10-17 15:58] LABS: CMV IgM Antibody <8.0 AU/mL (<=29.9)
[2023-10-17] MEDS: LOVENOX 40 MG SC (18:02)
[2023-10-17 23:09] VITALS: BP 113/73
[2023-10-18] MEDS: DILAUDID 0.5 MG IV (01:30)
[2023-10-18] MEDS: SOLU-MEDROL PF 40 MG IV ×2 (06:00→18:12)
[2023-10-18 06:20] LABS: % Basophils 0.7 % (0-2); % Immature Granulocytes 0.3 % (0-0.5); % Lymphocytes 34.6 % (20.5-51.1); % Monocytes 15.7 % (1.7-9.3); % Neutrophils 48.7 % (42.2-75.2); Absolute Lymphocytes 1.1 10^3/uL (1.2-3.4); Absolute Monocytes 0.5 10^3/uL (0.1-0.6); Absolute Neutrophils 1.5 10^3/uL (1.4-6.5); Hematocrit 29.7 % (37.0-47.0); Hemoglobin 9.5 g/dL (12.0-16.0); Mean Corpuscular Hgb 26.9 pg (27.0-31.0); Mean Corpuscular Volume 84.1 fL (81.0-99.0); Mean Platelet Volume 10.5 fL (7.4-10.4); Nucleated Red Blood Cells % 0 %; Platelet Count 229 10^3/uL (130-400); Red Blood Cell Count 3.53 10^6/uL (4.20-5.40); Red Cell Dist. Width 22.4 % (11.5-14.5); White Blood Cell Count 3.1 10^3/uL (4.8-10.8)
[2023-10-18 07:43] VITALS: BP 114/69
[2023-10-18] MEDS: VISBIOME 2 CAP PO (09:53)
[2023-10-18] MEDS: QUESTRAN 4 GRAM PO (09:53)
--- NOTE | 2023-10-18 10:45 | W.PN.ONC ---
Today's Communication / Plan
-
Diarrhea - pancolitis on CT imaging-GI / surgery following
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
IV fluids discontinued to assess ability to hydrate orally
On Questran, probiotic, and low residue diet
Will need follow-up to review treatment plan and ascertain risk benefit of continuing PDL therapy as patient reported profound response
Impression
Impression
diarrhea - colitis on CT - unclear etiology; presumptive immunotherapy related
h/o breast cancer - stage IIIC - triple neg - carbo/taxol/keytruda - 08/28 - followed by weekly carbo/taxol - last 09/18
leukopenia/lymphopenia
normocytic anemia -s/p IV iron 10/02
Subjective/Objective
Subjective/Objective
Continues to have 4-5 stools daily but describes them as soft rather than liquid
Vital Signs:
Vital Signs
Temp Pulse Resp BP Pulse Ox
98.3 F 73 16 114/69 100
10/18/23 07:43 10/18/23 07:43 10/18/23 07:43 10/18/23 07:43 10/18/23 07:43
Physical Exam
HEENT: No Jaundice
Cardiology: Normal Sinus Rhythm
Pulmonary: Clear
GI: Soft
Extremities: No Edema
Lab Results:
Laboratory Data
WBC 3.1 10^3/uL (4.8-10.8) L 10/18/23 05:58
Hgb 9.5 g/dL (12.0-16.0) L 10/18/23 05:58
Plt Count 229 10^3/uL (130-400) 10/18/23 05:58
eGFR > 60.00 10/16/23 06:04
[2023-10-18 15:37] VITALS: BP 113/75
--- NOTE | 2023-10-18 17:18 | W.PN.HOSP.TC ---
Today's Communication/Plan
-
dc now
Assessment / Plan
Assessment / Plan
Assessment/Plan
Patient is a pleasant 33 years old with history of breast cancer on chemotherapy with Keytruda/Taxol/carboplatin who came to the ER with 3 weeks history of diarrhea found to have pancolitis.
Doubt Sepsis most likely inflammatory etiology related to Keytruda. Doubt infectious source
Source of infection is pancolitis seen on CT scan
Continue IV fluids
IV antibiotic in form of Zosyn now stopped by Dr. Russell
Blood culture pending
Stool studies with negative C. Diff
Continue dicyclomine
Dilaudid as needed
Zofran prn
GI resumed low residue diet and she is tolerating
discussed with Dr. Bajwa, in pt with cancer and on Keytruda, by definition should be considered, immunocompromised
Breast cancer on neoadjuvant chemotherapy
-Patient sees Dr. Alejandre colorectal surgeon outpatient, reviewed with Dr. Alejandre 10/14
-Consulted colorectal, GI and oncology
Anxiety/depression
-Continue Ativan as needed
Full code
DVT Prophylaxis�Lovenox, will resume, risk/benefit, pt made aware if notes blood in stool to let nursing know
started on SoluMedrol [address] Ordaz wants pt dc on Prednisone 50 mg daily, with decrease of 5 mg every week
see dictated note
More than 30 minutes spent in discharge including
Final examination of the patient
Summarizing hospital stay
Instructions for continuing care to all relevant caregivers
Preparation of discharge records, prescriptions, and referral forms
Total time spent (in minutes): 45
Anticipated Discharge: Today
Subjective/Interval History
-
Date of Service: October 18, 2023
stool production has slowed down and appears to be firming up
Objective Data
-
Labs:
Laboratory Results
10/18/23
05:58
WBC 3.1 L
Hgb 9.5 L
Hct 29.7 L
Plt Count 229
Vital Signs:
Vital Signs
Temp Pulse Resp BP Pulse Ox
98.4 F 92 17 113/75 100
10/18/23 15:37 10/18/23 15:37 10/18/23 15:37 10/18/23 15:37 10/18/23 15:37
I&O
10/17/23 10/18/23 10/19/23
06:59 06:59 06:59
Intake Total 2480 / 2480 2600 / 2600
Balance 2480 / 2480 2600 / 2600
Review of Systems
-
History Source: Patient and Physician (reviewed with GI)
Constitutional: Denies Fever
EENT: Reports No Symptoms Reported
Respiratory: Reports No Symptoms
Cardiac: Reports No Symptoms
Abdomen/GI: Reports Diarrhea (slowing down); Denies Abdominal Pain, Nausea or Vomiting
Genitourinary: Reports No Symptoms
Physical Exam
-
General: Well Developed, Well Nourished and No Apparent Distress
HEENT: Normocephalic, Atraumatic and Moist Mucous Membranes
Respiratory: Clear to Auscultation; Negative Wheezes, Rales or Rhonchi
Cardiac: Regular Rhythm and S1/S2
GI: Soft, Nontender and Nondistended
Musculoskeletal: No Clubbing, No Cyanosis and No Edema
Neuro: Awake, Alert and Oriented
--- NOTE | 2023-10-18 17:50 | W.PN.GI.CBS2 ---
Today's Communication / Plan
-
ok for DC, f/u with Oncology and Rv with us in 2 months
Assessment / Plan
-
Stephanie is a 33yo W with h/o L breast cancer diagnosed 07/2023 on chemotherapy (keytruda/taxol/carbo) last 09/19/23 and thyroid cancer who presents with profuse nonbloody diarrhea. She started chemotherapy on 08/28 and her last dose was 09/19/23. CTAP
shows R sided colonic thickening concern for colitis.
Impression
- Profuse non bloody diarrhea with R sided colonic thickening
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
Less likely infections given negative stool studies
- L breast cancer diagnosed 07/2023
- Thyroid cancer
- Iron def anemia
s/p IV iron 10/02
Recommendations
- Colitis most likely from immune mediated colitis improved with steroids. If symptoms worsen or recur needs colonoscopy with biopsies.
- May need to hold or discontinue Keytruda moving forward but will defer decision to oncology
- Stool studies negative
- started trial of IV steroids 10/14 and symptoms seem to be improving and her fecal calprotectin is also significantly elevated > 3000
- Continue low residue diet
- Also added Questran
- added probiotics
- discussed with Dr. Middleton will DC on 50 mg of p.o. prednisone and taper by 5 mg every week continue Questran as needed and IBgard as needed.
Subjective
Subjective
Date of Service: October 18, 2023
Diarrhea slowly improving she still had 3-4 bowel movements today but slightly more formed no abdominal pain No fever no vomiting
Objective
Data Reviewed
Laboratory Data:
Laboratory Results
10/18/23 05:58
10/16/23 06:04
Laboratory Results
Total Bilirubin 0.4 mg/dl (0.2-1.3) 10/15/23 06:56
AST 21 U/L (14-36) 10/15/23 06:56
ALT 16 U/L (0-35) 10/15/23 06:56
Alkaline Phosphatase 56 U/L (38-126) 10/15/23 06:56
Vital Signs and I&O:
Vital Signs
Temp Pulse Resp BP Pulse Ox
98.4 F 92 17 113/75 100
10/18/23 15:37 10/18/23 15:37 10/18/23 15:37 10/18/23 15:37 10/18/23 15:37
I&O
10/17/23 10/18/23 10/19/23
06:59 06:59 06:59
Intake Total 2480 / 2480 2600 / 2600 720 / 720
Balance 2480 / 2480 2600 / 2600 720 / 720
Physical Exam
Physical Exam
Cardiology: Normal Sinus Rhythm
Pulmonary: Clear
GI: Soft, Non Distended, Non Tender and Normal Bowel Sounds
--- NOTE | 2023-10-18 17:54 | W.DS.TRANS ---
DC Summary - Dive Supervisor
-
Discharge Instructions:
Discharge Diagnosis/Procedures immunologic colitis
Diet Low Residue
Activity No restrictions
Driving Restrictions As prior to admission
Bathing Restrictions None
Instructions:
Stand-Alone Forms:
Changes to Home Medications: Yes
Discharge Medications:
DC Medications w/original date entered in [employer]
dicyclomine 20 mg tablet 20 mg PO QID PRN abdominal cramping #10 tabs 09/26/23
Black Seed Oil 5 ml PO DAILY Supplement 10/01/23
Delta-8 Thc And Cbd Gummies 0.5 tab PO BID Supplement 10/01/23
Lactobac no.2-Bifidobac no.1-S. thermo 112.5 billion cell capsule (Visbiome) 1 cap PO DAILY probiotic 10/01/23
Sea [place] Jelly 1 dose PO DAILY Supplement 10/01/23
Super Greens Powder 1 packet PO DAILY Supplement 10/01/23
calcium carbonate 500 mg PO DAILY Supplement 10/01/23
cholecalciferol (vitamin D3) 25 mcg (1,000 unit) tablet (Vitamin D3) 25 mcg PO DAILY Supplement 10/01/23
hydrocortisone 2.5 % topical cream with perineal applicator (Anusol-HC) 1 applic GA DAILY PRN hemorrhoids #30 grams 10/01/23
omega 4-ewv-gce-fish oil 1,000 mg (120 mg-180 mg) capsule (Fish Oil) 1 cap PO DAILY Supplement 10/01/23
ondansetron 8 mg disintegrating tablet 8 mg PO [id number] PRN nausea 10/01/23
vitamin B complex 1 tab PO DAILY Supplement 10/01/23
lorazepam 0.5 mg tablet (Ativan) 0.5 mg PO TID PRN nausea/cramping #30 tabs 10/10/23
cholestyramine (with sugar) 4 gram powder for susp in a packet 1 ea PO BID #60 ea 10/18/23
prednisone 10 mg tablet 10 mg PO DIRECTED #180 tabs 10/18/23
Home Medication Changes
Prednisone and Cholestyramine are new
Pending Results: No
[2023-10-18] MEDS: LOVENOX 40 MG SC (18:12)
[2023-10-18] MEDS: TYLENOL 650 MG PO (20:10)
[2023-10-18 20:24] VITALS: BP 123/79
[2023-10-18] MEDS: QUESTRAN PO (21:14)
--- NOTE | 2023-10-18 21:15 | PTCARENOTE ---
Assumed care of patient at 1900. Patient scheduled for discharge to home accompanied by son as transportation upon arrival. Discharge paperwork signed and IV removed by previous shift.
~2114 Patients son arrived and patient discharged with all belongings.
== END 2023-10-18 21:15 | disposition home or self-care (01) | DRG 394 ==
LOC: 3 WEST ACU 23:05
PROVIDERS: General Practice; Hospitalist; Physician Assistant; Registered Nurse; ADMITTING PHYSICIAN Hospitalist; ATTENDING PHYSICIAN Internal Medicine; CONSULT PHYSICIAN Internal Medicine Gastroenterology; CONSULT PHYSICIAN Internal Medicine Hematology & Oncology; EMERGENCY PHYSICIAN Emergency Medicine; FAMILY PHYSICIAN Family Medicine; OTHER PHYSICIAN Surgery
DX: K52.1 Toxic gastroenteritis and colitis (principal); D84.821 Immunodeficiency due to drugs; K62.5 Hemorrhage of anus and rectum; C50.912 Malignant neoplasm of unspecified site of left female breast; T45.1X5A Adverse effect of antineoplastic and immunosuppressive drugs, initial encounter; Y92.9 Unspecified place or not applicable; D50.9 Iron deficiency anemia, unspecified; M54.50 Low back pain, unspecified; D36.10 Benign neoplasm of peripheral nerves and autonomic nervous system, unspecified; E86.0 Dehydration; K64.9 Unspecified hemorrhoids; F41.9 Anxiety disorder, unspecified; F32.A Depression, unspecified; Z88.6 Allergy status to analgesic agent; Z88.5 Allergy status to narcotic agent; Z92.21 Personal history of antineoplastic chemotherapy; Z98.891 History of uterine scar from previous surgery; Z85.850 Personal history of malignant neoplasm of thyroid; Z17.1 Estrogen receptor negative status [ER-]; Z79.69 Long term (current) use of other immunomodulators and immunosuppressants
CPT/HCPCS: 74177; 80048; 80053; 83605; 85025; 85027; 86644; 86645; 87045; 87046; 87324; 87328; 87329; 87427; 87449; 89055; 96361; 96374; 99285; Q9967

== ENCOUNTER → 2023-11-05 11:33 | Outpatient (REF) | payer BC, SELFPAY ==
[2023-11-05 13:41] LABS: % Basophils 0.4 % (0-2); % Eosinophils 0.3 % (0-6); % Immature Granulocytes 0.7 % (0-0.5); % Lymphocytes 29.6 % (20.5-51.1); % Monocytes 4.8 % (1.7-9.3); % Neutrophils 64.2 % (42.2-75.2); Absolute Immature Granulocytes 0.1 10^3/uL (0-0.05); Absolute Lymphocytes 2.2 10^3/uL (1.2-3.4); Absolute Monocytes 0.4 10^3/uL (0.1-0.6); Absolute Neutrophils 4.8 10^3/uL (1.4-6.5); Hematocrit 42.3 % (37.0-47.0); Hemoglobin 12.9 g/dL (12.0-16.0); Mean Corp Hgb Conc. 30.5 g/dL (33.0-37.0); Mean Platelet Volume 10.2 fL (7.4-10.4); Nucleated Red Blood Cells % 0 %; Platelet Count 227 10^3/uL (130-400); Red Cell Dist. Width 23.4 % (11.5-14.5); White Blood Cell Count 7.5 10^3/uL (4.8-10.8)
[2023-11-05 13:54] LABS: ALT (SGPT) 80 U/L (0-35); AST (SGOT) 27 U/L (14-36); Albumin 3.8 g/dl (3.5-5.0); Alkaline Phosphatase 64 U/L (38-126); Blood Urea Nitrogen 12 mg/dl (7-17); Calcium 9.1 mg/dl (8.4-10.2); Carbon Dioxide 33 mmol/L (22-30); Chloride 99 mmol/L (98-107); Glucose 84 mg/dl (70-99); Sodium 139 mmol/L (135-145); Total Bilirubin 0.3 mg/dl (0.2-1.3); Total Protein 6.7 g/dl (6.3-8.2); eGFR > 60.00
[2023-11-05 14:38] LABS: Polychromasia 1+
[2023-11-05 14:39] LABS: Anisocytosis 1+; Poikilocytosis 1+
[2023-11-05 14:40] LABS: Normal RBC Morphology No; Stomatocytes Slight
== END ==
LOC: REG 11:33
PROVIDERS: ATTENDING PHYSICIAN Internal Medicine Hematology & Oncology; FAMILY PHYSICIAN Family Medicine
DX: C50.412 Malignant neoplasm of upper-outer quadrant of left female breast (principal); D50.8 Other iron deficiency anemias; E55.9 Vitamin D deficiency, unspecified; K52.9 Noninfective gastroenteritis and colitis, unspecified
CPT/HCPCS: 36415; 80053; 85025

== ENCOUNTER → 2023-11-13 14:31 | Outpatient (REF) | payer BC, SELFPAY | LOC: WDC 14:31 | DX: N64.4 Mastodynia (principal) | CPT/HCPCS: 76642 ==

== ENCOUNTER 2023-11-14 08:47 | Outpatient (RCR) | payer BC, SELFPAY ==
[2023-11-01 10:38] LABS: % Basophils 0.5 % (0-2); % Eosinophils 0.5 % (0-6); % Immature Granulocytes 0.5 % (0-0.5); % Lymphocytes 46.8 % (20.5-51.1); % Monocytes 7.5 % (1.7-9.3); % Neutrophils 44.2 % (42.2-75.2); Absolute Monocytes 0.3 10^3/uL (0.1-0.6); Absolute Neutrophils 1.9 10^3/uL (1.4-6.5); Hematocrit 35.8 % (37.0-47.0); Hemoglobin 11.5 g/dL (12.0-16.0); Mean Corp Hgb Conc. 32.1 g/dL (33.0-37.0); Mean Corpuscular Hgb 28.3 pg (27.0-31.0); Mean Corpuscular Volume 88.2 fL (81.0-99.0); Mean Platelet Volume 10.3 fL (7.4-10.4); Nucleated Red Blood Cells % 0 %; Platelet Count 142 10^3/uL (130-400); Red Blood Cell Count 4.06 10^6/uL (4.20-5.40); Red Cell Dist. Width 23.1 % (11.5-14.5); White Blood Cell Count 4.3 10^3/uL (4.8-10.8)
[2023-11-01 10:44] LABS: ALT (SGPT) 50 U/L (0-35); AST (SGOT) 26 U/L (14-36); Albumin 3.3 g/dl (3.5-5.0); Alkaline Phosphatase 59 U/L (38-126); Blood Urea Nitrogen 7 mg/dl (7-17); Carbon Dioxide 28 mmol/L (22-30); Chloride 101 mmol/L (98-107); Glucose 132 mg/dl (70-99); Potassium 3.2 mmol/L (3.5-5.1); Sodium 137 mmol/L (135-145); Total Bilirubin 0.4 mg/dl (0.2-1.3); Total Protein 5.8 g/dl (6.3-8.2); eGFR > 60.00
[2023-11-01 18:50] LABS: Hepatitis B Surface Antigen Negative (Negative)
[2023-11-01 19:07] LABS: Hepatitis B Core Ab, Total Negative (Negative); Hepatitis B Surface Antibody Negative
--- NOTE | 2023-11-07 15:39 | W.PN.UPDATE ---
Update Note
- Progress Note Update
11/07/23 Spoke with patient today regarding plans for future treatment. Patient states that she is feeling much better had Remicade last week and now is with less than 4 episodes of diarrhea per day. She saw Herman Isaac ARTIST MODEL at [facility]
yesterday and was waiting to hear back regarding future treatment. I did advise the patient per notes that it seemed plan treatment was scheduled for next Sunday and she will receive Taxol and carboplatin. With her second dose of Remicade on
11/14 the day after treatment. In future Remicade treatments will be dependent upon how she is doing. She also has a follow-up with GI Dr. Russell in 2 weeks. She will discuss with [place] prednisone taper. She continues on 50 mg of prednisone and
states that her taper is to take 5 mg last each 7 days. For instance she is on 50 mg in 1 week she would then take 45 mg and so on. She will plan to treat OID for [place] next Sunday. She had no additional questions or concerns at this time. I
did advise the patient that she should be hearing from [facility] office in the next day or so to confirm treatment plans for next week. She thanked me for my time and for the call and has my contact information if she has not any additional
questions or concerns she was advised to reach out.
[2023-11-14 09:15] VITALS: BP 130/70
[2023-11-14 09:45] LABS: % Basophils 0.3 % (0-2); % Eosinophils 0.6 % (0-6); % Immature Granulocytes 0.3 % (0-0.5); % Lymphocytes 57.3 % (20.5-51.1); % Monocytes 8.5 % (1.7-9.3); Absolute Lymphocytes 3.6 10^3/uL (1.2-3.4); Absolute Monocytes 0.5 10^3/uL (0.1-0.6); Hematocrit 38.4 % (37.0-47.0); Hemoglobin 12.6 g/dL (12.0-16.0); Mean Corp Hgb Conc. 32.8 g/dL (33.0-37.0); Mean Corpuscular Hgb 29.6 pg (27.0-31.0); Mean Corpuscular Volume 90.1 fL (81.0-99.0); Mean Platelet Volume 10.2 fL (7.4-10.4); Nucleated Red Blood Cells % 0 %; Platelet Count 271 10^3/uL (130-400); Red Blood Cell Count 4.26 10^6/uL (4.20-5.40); Red Cell Dist. Width 20.6 % (11.5-14.5); White Blood Cell Count 6.2 10^3/uL (4.8-10.8)
[2023-11-14 10:04] LABS: ALT (SGPT) 39 U/L (0-35); AST (SGOT) 22 U/L (14-36); Albumin 3.8 g/dl (3.5-5.0); Alkaline Phosphatase 50 U/L (38-126); Blood Urea Nitrogen 8 mg/dl (7-17); Calcium 9.3 mg/dl (8.4-10.2); Carbon Dioxide 28 mmol/L (22-30); Chloride 101 mmol/L (98-107); Glucose 102 mg/dl (70-99); Potassium 3.2 mmol/L (3.5-5.1); Sodium 136 mmol/L (135-145); Total Bilirubin 0.5 mg/dl (0.2-1.3); Total Protein 6.2 g/dl (6.3-8.2); eGFR > 60.00
[2023-11-14] MEDS: PEPCID 52 MG IV (11:27)
[2023-11-14] MEDS: DECADRON 52 MG IV (12:00)
[2023-11-14] MEDS: ALOXI 5 MG IV (12:00)
[2023-11-14] MEDS: BENADRYL 51 MG IV (12:28)
[2023-11-14] MEDS: TAXOL/PACLITAXEL 269.5 MG IV (13:09)
[2023-11-14 13:15] VITALS: BP 113/79
[2023-11-14] MEDS: PARAPLATIN 268.899999999999977 MG IV (14:17)
[2023-11-14 15:30] VITALS: BP 111/69
[2023-11-14] MEDS: KCL 260 MEQ IV (15:32)
== END 2023-11-15 10:52 | disposition home or self-care (01) ==
LOC: OID 08:47
PROVIDERS: ATTENDING PHYSICIAN Internal Medicine Hematology & Oncology; FAMILY PHYSICIAN Family Medicine
DX: Z51.11 Encounter for antineoplastic chemotherapy (principal); C50.412 Malignant neoplasm of upper-outer quadrant of left female breast (principal); D50.9 Iron deficiency anemia, unspecified; D50.8 Other iron deficiency anemias; Z17.0 Estrogen receptor positive status [ER+]
CPT/HCPCS: 80053; 85025; 86704; 86706; 87340; 96366; 96367; 96375; 96413; 96417; J2469; J9045; J9267

== ENCOUNTER → 2023-11-15 09:34 | Outpatient (REF) | payer BC, SELFPAY ==
[2023-11-17 19:41] LABS: Quantiferon Mitogen minus NIL 9.96 IU/mL; Quantiferon NIL 0.04 IU/mL; Quantiferon Plus TB1 minus NIL 0.01 IU/mL (<=0.34); Quantiferon TB Gold Plus Negative (Negative)
== END ==
LOC: REG 09:34
PROVIDERS: ATTENDING PHYSICIAN Internal Medicine Hematology & Oncology; FAMILY PHYSICIAN Family Medicine
DX: C50.412 Malignant neoplasm of upper-outer quadrant of left female breast (principal); D50.8 Other iron deficiency anemias; E55.9 Vitamin D deficiency, unspecified; K52.9 Noninfective gastroenteritis and colitis, unspecified
CPT/HCPCS: 36415; 86480

== ENCOUNTER 2023-11-27 22:45 | Inpatient (IN) | payer BC, SELFPAY ==
[2023-11-27 17:29] VITALS: BP 132/86
--- NOTE | 2023-11-27 18:39 | ED.GENMED ---
History of Present Illness
General
Chief Complaint: Abdominal Symptoms
Time Seen by Provider: 11/27/23 18:18
History of Present Illness
History of Present Illness:
33-year-old female history of breast cancer, colitis presenting with diffuse abdominal pain with diarrhea and bloody bowel movements worsening over the past 4 to 5 days. Patient states that she received Keytruda in August when she had similar
episode, was diagnosed with colitis and admitted to the hospital. Patient states that she started on Remicade which she last received on 10/31. Patient states that her insurance would not approve Remicade and want her to use bio similar which she
last received on Wednesday 11/22. Patient states that since receiving biosimilar, she has had increasing abdominal pain with bloody bowel movements. Patient denies any recent use of antibiotic. Patient states that she discussed with oncology office
who recommended come to the emergency department for further evaluation. Patient's not on blood thinners. Patient denies fever, chills, dysuria, hematuria or vomiting. Patient states that she gets nauseous as abdominal pain increases prior to
having bowel movement. Patient states she is having at least 9 episodes of bloody bowel movements daily. Patient states that she has continued to take prednisone daily since being discharged from hospital 1 month ago, currently at 60mg that was
recently increased last week from 45mg daily from increased symptoms.
Past History
Past History
ED Past Medical History: Cancer and Psychiatric
ED Past Surgical History:
Social History
Tobacco: Non-smoker
Alcohol: Occasional
Drug: None
Personal: Single
Living: with family
Family History
Family History: Unable to obtain
Phy Exam
Physical Exam
Physical Exam:
General: Alert, no acute distress
Head: NCAT
Eyes: clear conjunctiva
Neck: supple
Cardiac: regular rate and rhythm, no murmur
Lungs: clear to auscultation bilaterally. No wheezes, rales, or rhonchi. Speaking full unlabored sentences. No respiratory distress.
Abdomen: soft, nondistended nontender. No rebound or guarding.
MSK: no lower extremity edema bilaterally. No deformity
Skin: warm, dry
Neuro: Alert and oriented x3. no focal deficits
Course
Orders/Labs/Results
Orders:
Orders
11/27/23 Breakfast
Clear Liquid
At Your Request: Full Participation
11/27/23 18:38
CT Abd/Pel (IV only)-DH only Urgent
Comment:
Reason For Exam: diffuse abdominal pain, bloody stools, hx colitis
11/27/23 18:52
Complete Blood Count/With Diff Urgent
Comprehensive Metabolic Panel Urgent
HCG, Urine Qualitative Screen Urgent
Date Specimen was Collected: 11/27/23
Time Specimen was Collected: 18:45
Comment: ADD ON
Lactic Acid Urgent
Lipase Urgent
Urinalysis Reflex To Culture Urgent
Date Specimen was Collected: 11/27/23
Time Specimen was Collected: 18:45
11/27/23 20:01
Test Result ONCE
11/27/23 20:02
Add On- LAB Urgent
Tests Added?: urine HCG qualitative
11/27/23 21:42
C difficile Antigen & Toxins Urgent
KAROLINE Source: Feces/Stool
Specimen Description:
Date Specimen was Collected: 11/28/23
Time Specimen was Collected: 00:07
Norovirus by PCR Stat
KAROLINE Source: Feces/Stool
Specimen Description:
Date Specimen was Collected: 11/28/23
Time Specimen was Collected: 00:07
Stool Culture Urgent
KAROLINE Source: Feces/Stool
Specimen Description:
Date Specimen was Collected: 11/27/23
Time Specimen was Collected: 21:40
Stool For WBC Urgent
KAROLINE Source: ST
Specimen Description:
Date Specimen was Collected: 11/27/23
Time Specimen was Collected: 21:40
11/27/23 22:26
Admit/Transfer Patient As Directed
Co-Sign Provider:
Level of Care: Inpatient admission
Assign to:: Medical/Surgical
Physician / Group: molly
Diagnosis: colitis
Reason for Hospitalization: colitis
Expected length of stay greater than two midnights?: Yes
ELOS- Estimated Length of Stay in days: 3
I certify the patient meets the requirements for IP care: Yes
11/27/23 22:27
Code Status As Directed
Resuscitation Status: Full Code
11/27/23 23:00
Flush (0.9% Sodium Chloride) [Flush (Nss)] See Dose Instructions IV PER PROTOCOL
11/27/23 23:23
Acetaminophen [Tylenol] 1,000 mg PO Q6HPRN PRN
Dicyclomine [Bentyl] 20 mg PO QID PRN
Lorazepam [Ativan] 0.5 mg PO TID PRN
Tramadol HCl [Ultram] 50 mg PO Q4H PRN
11/27/23 23:23
Consult Notification Routine
Specialty to Notify: Gastroenterology
Date consulting provider notified: 11/28/23
Time consulting provider notified: 07:03
Notified:: Provider
Comment: Dr. Harvey notified via tiger text
GASTROINTESTINAL CONSULT Routine
Consulting Provider: Daniella Harvey
Was physician already notified: No
Reason for consult: colitis
Activity As Directed
Activity Level: As Tolerated
Pneumatic Compression Sleeves As Directed
Type: Knee high
Vital Signs As Directed
Frequency: Per unit guidelines
DX Deep Vein Thrombosis Video Routine
11/28/23 05:51
Basic Metabolic Panel IN AM
Complete Blood Count/No Diff IN AM
11/28/23 08:00
Cholecalciferol (Vitamin D3) [VITAMIN D3 (cholecalciferol)] 25 mcg PO DAILY
Lactobac/Bifidobac [Visbiome] 1 cap PO DAILY
Potassium Chloride [KCl] 20 meq PO DAILY
Prednisone [Deltasone] 60 mg PO DAILY
Vitamin B Complex with C [B COMPLEX w/VITAMIN C] 1 caplet PO DAILY
omega 9-sqf-wvb-fish oil [Fish Oil] 1 cap PO DAILY
turmeric 400 mg PO DAILY
11/29/23 08:27
Basic Metabolic Panel IN AM
Complete Blood Count/No Diff IN AM
11/30/23 06:00
Basic Metabolic Panel IN AM
Complete Blood Count/No Diff IN AM
12/01/23 06:00
Basic Metabolic Panel IN AM
Complete Blood Count/No Diff IN AM
12/02/23 06:00
Basic Metabolic Panel IN AM
Complete Blood Count/No Diff IN AM
Abnormal Lab Results
11/27/23
18:52
WBC 4.6 L 10^3/uL
(4.8-10.8)
RBC 3.99 L 10^6/uL
(4.20-5.40)
Hct 35.9 L %
(37.0-47.0)
RDW 18.6 H %
(11.5-14.5)
Immature Gran % 0.9 H %
(0-0.5)
Glucose 135 H mg/dl
(70-99)
ALT 40 H U/L
(0-35)
Total Protein 5.7 L g/dl
(6.3-8.2)
11/27/23 18:52
11/27/23 18:52
Vital Signs
Initial and Last Documented VS:
Initial Vital Signs
Temp Pulse Resp BP Pulse Ox
98.2 F 106 18 132/86 96
11/27/23 17:29 11/27/23 17:29 11/27/23 17:29 11/27/23 17:29 11/27/23 17:29
Last Documented Vital Signs
Temp Pulse Resp BP Pulse Ox
97.9 F 71 16 106/66 100
11/29/23 07:47 11/29/23 07:47 11/29/23 07:47 11/29/23 07:47 11/29/23 07:47
MDM/Problems Addressed
Differential Diagnosis Includes:
Patient presents to the Emergency Department with diffuse abdominal pain, bloody bowel movements
Number and Complexity of Problems Addressed at the Encounter
� Chronic conditions affecting care:
� Acute Exacerbation and/or Progression of Chronic Illness:
� Differential Diagnosis includes: Colitis, diverticulitis, chemotherapy side effect
Amount and/or Complexity of Data to be Reviewed and Analyzed
� I performed an independent evaluation of and my interpretation is:
EKG:
CT:
Xrays:
Laboratory Studies: hemoglobin 12.1, WBc 4.6, UA negative for UTI
Other:
� Review of other/old records reveals:
� Clinical information was obtained by an independent historian:
� Prescriptions/Medications Considered but not given:
� Further testing considered but not performed:
Risk of Complications and/or Morbidity or Mortality of Patient Management
� Social Determinants of health affecting care:
� Discussion with other providers (PCP, Hospitalists, Consultants, etc):
� Escalation of care including admission/observation vs risk of discharge considered: 33yoF hx breast cancer, last received chemotherapy on 11/20 presenting with diffuse abdominal pain and multiple bloody bowel movements daily worsening since 11/22.
Patient has history of similar symptoms which were contributed to immunotherapy colitis. CT abdomen/pelvis shows here is probable mild circumferential diffuse wall thickening of the left colon and sigmoid colon and rectum as can be seen with
colitis. However, evaluation is limited without oral contrast. This may be simply due to limited distention. Similar findings are noted in the distal half of the transverse colon as well. Discussed with GI who recommended admission. Discussed with
hospitalist who accepts for admission. Will hold on antibiotics due to negative stool cultures previously and symptoms never completely resolved since last admission. Stool culture pending. Patient already took prednisone 60mg today, will hold on
further steroids. admit
*Critical Care Note
Total Time (30-74mins, 75-104mins- exclusive of procedures): Not Applicable
ED Attending Note
-
Portions of this chart may have been created with voice recognition software.� Occasional wrong word or��sound alike� substitutions may have occurred due to the inherent limitations of voice recognition software.
Discharge Plan
Departure
Patient Disposition: Admit
Date of Disposition: 11/27/23
Time of Disposition: 21:57
Presentation/result/management discussed w/ accepting MD/DO: Hospitalist
Discharge Problem:
Colitis
Interventions
Interventions:
*Risk Screen - Suicide Last Done: 11/27/23 18:57
*General Assessment Last Done: 11/27/23 18:57
*Neglect/Abuse Screening Last Done: 11/27/23 18:57
ED- Fall Risk Assessment Last Done: 11/27/23 18:57
*ED COVID-19 Vaccine History Last Done: 11/27/23 23:49
*Nursing Disposition Last Done: 11/28/23 11:19
FV-Gveefn-Sclduarobu Assessment Last Done: 11/27/23 18:57
[2023-11-27 18:53] VITALS: BMI 26.7
[2023-11-27 19:03] LABS: % Basophils 0.4 % (0-2); % Immature Granulocytes 0.9 % (0-0.5); % Lymphocytes 27.2 % (20.5-51.1); % Monocytes 8.3 % (1.7-9.3); % Neutrophils 63.2 % (42.2-75.2); Absolute Lymphocytes 1.2 10^3/uL (1.2-3.4); Absolute Monocytes 0.4 10^3/uL (0.1-0.6); Absolute Neutrophils 2.9 10^3/uL (1.4-6.5); Hematocrit 35.9 % (37.0-47.0); Hemoglobin 12.1 g/dL (12.0-16.0); Mean Corp Hgb Conc. 33.7 g/dL (33.0-37.0); Mean Corpuscular Hgb 30.3 pg (27.0-31.0); Mean Platelet Volume 9.7 fL (7.4-10.4); Nucleated Red Blood Cells % 0 %; Platelet Count 305 10^3/uL (130-400); Red Blood Cell Count 3.99 10^6/uL (4.20-5.40); Red Cell Dist. Width 18.6 % (11.5-14.5); White Blood Cell Count 4.6 10^3/uL (4.8-10.8)
[2023-11-27 19:12] LABS: Lactic Acid 1.7 mmol/L (0.7-2.0)
[2023-11-27 19:31] LABS: ALT (SGPT) 40 U/L (0-35); AST (SGOT) 29 U/L (14-36); Albumin 3.6 g/dl (3.5-5.0); Alkaline Phosphatase 43 U/L (38-126); Blood Urea Nitrogen 13 mg/dl (7-17); Calcium 9.1 mg/dl (8.4-10.2); Carbon Dioxide 27 mmol/L (22-30); Chloride 101 mmol/L (98-107); Estimated Creatinine Clearance 117 ml/min; Glucose 135 mg/dl (70-99); Potassium 4.5 mmol/L (3.5-5.1); Sodium 135 mmol/L (135-145); Total Bilirubin 0.2 mg/dl (0.2-1.3); Total Protein 5.7 g/dl (6.3-8.2); Urine Albumin Negative (Neg - Trace); Urine Bilirubin Negative (Negative); Urine Character Clear (Clear); Urine Color Yellow; Urine Glucose Negative (Negative); Urine Ketone Negative (Negative); Urine Leukocyte Negative (Negative); Urine Nitrite Negative (Negative); Urine Occult Blood Negative (Negative); Urine Urobilinogen Negative (Neg - 1+); eGFR > 60.00
[2023-11-27 19:32] LABS: Lipase 52 U/L (23-300)
[2023-11-27 20:17] LABS: HCG, Urine Qualitative Screen Negative
[2023-11-27 21:42] VITALS: BP 128/86
--- NOTE | 2023-11-27 21:56 | HPS.HSE ---
Family Physician
-
Family Physician: Dahiana Carr
Chief Complaint
-
diarrhea
History of Present Illness
33 year old with PMH for left breast ca, thyroid ca, colitis presented to us with worsening of chronic diarrhea since Sunday. patient was discharged on 10/17 on steroids for colitis. she got Remicade on 10/31. she felt better for few days. insurance
denied Remicade. she got Biosimilar on Sunday. since Sunday multiple episodes of watery bloody diarrhea. she gets abdominal and back pressure when moving soft bowels. gets nausea when moving soft BM. denied poor appetite, vomiting. denied fever,
chills, BADILLO, dizzy or syncopal episode. denied chest pain, sob. denied dysuria or hematuria. she was on tapering prednisone since the discharge but it was increased to 60mg on Sunday due to diarrhea.
CT with colitis. admitting for further management.
Medical History
Past Medical History
Past Medical History: Reports Other
Additional Past Medical History:
colitis
breast cancer
thyroid cancer
Past Surgical History: Reports None
Social History
Tobacco: Non-smoker
Alcohol: None
Drug: None
Family History
Family History: Not pertinent
Allergies / Home Medications
Allergies reflects when Allergies were last updated in [facility].
Home Medications with original date entered in [facility]
Allergy/Medication List:
Allergies
Allergy/AdvReac Type Severity Reaction Status Date / Time
oxycodone [From Percocet] Allergy Itching Verified 11/21/23 08:48
Home Medications
dicyclomine 20 mg tablet 20 mg PO QID PRN abdominal cramping #10 tabs 09/26/23
Delta-8 Thc And Cbd Gummies 0.5 tab PO BIDPRN PRN nausea 10/01/23
Lactobac no.2-Bifidobac no.1-S. thermo 112.5 billion cell capsule (Visbiome) 1 cap PO DAILY probiotic 10/01/23
cholecalciferol (vitamin D3) 25 mcg (1,000 unit) tablet (Vitamin D3) 25 mcg PO DAILY Supplement 10/01/23
omega 8-ada-gzv-fish oil 1,000 mg (120 mg-180 mg) capsule (Fish Oil) 1 cap PO DAILY Supplement 10/01/23
vitamin B complex 1 tab PO DAILY Supplement 10/01/23
lorazepam 0.5 mg tablet (Ativan) 0.5 mg PO TID PRN nausea/cramping #30 tabs 10/10/23
tramadol 50 mg tablet 50 mg PO Q4H PRN back pain 11/14/23
acetaminophen 500 mg tablet 1,000 mg PO Q6H PRN mild pain 11/27/23
potassium chloride 20 mEq tablet,extended release 20 meq PO DAILY 11/27/23
prednisone 10 mg tablet 60 mg PO DAILY 11/27/23
turmeric 400 mg capsule 400 mg PO DAILY 11/27/23
Review of Systems
-
Constitutional: Reports No Symptoms
EENT: Reports No Symptoms
Respiratory: Reports No Symptoms
Cardiac: Reports No Symptoms
Abdomen/GI: Reports Diarrhea
: Reports No Symptoms
Musculoskeletal: Reports No Symptoms
Skin: Reports No Symptoms
Neurological: Reports No Symptoms
Endocrine: Reports No Symptoms
Hematologic/Lymphatic: Reports No Symptoms
Psych: Reports No Symptoms
Physical Exam
Vital Signs
Vital Signs
Temp Pulse Resp BP Pulse Ox
98.2 F 84 18 128/86 98
11/27/23 17:29 11/27/23 21:42 11/27/23 21:42 11/27/23 21:42 11/27/23 21:42
Physical Exam
General: Well Developed, Well Nourished and No Apparent Distress
HEENT: NormoCephalic, Moist mucous membranes and Atraumatic
Respiratory: Clear
Cardiac: S1/S2 and Regular Rhythm; No Murmur or Rub
GI: Soft, Non Tender, Non Distended and Normal Bowel Sounds; No Organomegaly
Rectal: Deferred by Provider
Musculoskeletal: No Clubbing, No Cyanosis and No Edema
Skin: No Rash
Neuro: AO x 3 and Nonfocal/grossly intact
Psych: Calm
Laboratory Results
-
11/27/23 18:52
11/27/23 18:52
Laboratory Results
Lactic Acid 1.7 mmol/L (0.7-2.0) 11/27/23 18:52
Total Bilirubin 0.2 mg/dl (0.2-1.3) 11/27/23 18:52
AST 29 U/L (14-36) 11/27/23 18:52
ALT 40 U/L (0-35) H 11/27/23 18:52
Alkaline Phosphatase 43 U/L (38-126) 11/27/23 18:52
Lipase 52 U/L (23-300) 11/27/23 18:52
Data Reviewed
-
CT Scan: Report Reviewed by me
Lab Data: Labs Reviewed by me
Impression/Plan
-
#diffuse abdominal pain/bloody Diarrhea likely colitis
-CT abdomen pelvis with Probable colitis as described above. Findings due to limited distention and lack of oral contrast cannot be excluded.
-will continue prednisone
-clear liquid diet
-stool culture, c diff, norovirus added
-GI consult
#hxt of breast cancer
-on chemo weekly
-supposed to get chemo tomorrow, last chemo a week ago
-follows Dr. Newberry as outpatient
#DVT prophylaxis
-scd
#CODE status
-full code
--- NOTE | 2023-11-27 22:28 | W.PN.UPDATE ---
Update Note
Progress Note Update
This is an addendum to the H&P written by Mónica Junior on 11/27/2023.
Patient seen and examined independently with [facility].
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
Patient was recently admitted in September for nonbloody diarrhea thought to be immune mediated colitis secondary to Keytruda. She was treated with steroids with improvement in symptoms. She was then started on Remicade, the first dose resulting in
improvement in symptoms. Insurance did not approve second dose and she was given biosimilar, since then with bloody diarrhea. Prednisone taper was increased this past Sunday.
Stool culture, C. difficile pending. Continue prednisone. Clear liquid diet. GI consulted.
She is due for chemotherapy tomorrow.
[2023-11-28] MEDS: DILAUDID 0.5 MG IV ×5 (00:09→20:28)
[2023-11-28] MEDS: ULTRAM 50 MG PO ×2 (02:40→12:31)
--- NOTE | 2023-11-28 03:40 | PTCARENOTE ---
report given to Josefina CORREA.
[2023-11-28 06:20] LABS: Hemoglobin 11.4 g/dL (12.0-16.0); Mean Corp Hgb Conc. 33.5 g/dL (33.0-37.0); Mean Corpuscular Hgb 30.6 pg (27.0-31.0); Mean Corpuscular Volume 91.4 fL (81.0-99.0); Mean Platelet Volume 10.1 fL (7.4-10.4); Platelet Count 246 10^3/uL (130-400); Red Blood Cell Count 3.72 10^6/uL (4.20-5.40); Red Cell Dist. Width 18.3 % (11.5-14.5); White Blood Cell Count 4.5 10^3/uL (4.8-10.8)
[2023-11-28 06:47] LABS: Blood Urea Nitrogen 6 mg/dl (7-17); Calcium 9.1 mg/dl (8.4-10.2); Carbon Dioxide 29 mmol/L (22-30); Chloride 102 mmol/L (98-107); Estimated Creatinine Clearance 117 ml/min; Glucose 86 mg/dl (70-99); Potassium 3.7 mmol/L (3.5-5.1); Sodium 136 mmol/L (135-145); eGFR > 60.00
[2023-11-28 07:00] VITALS: BP 106/63
[2023-11-28] MEDS: KCL 20 MEQ PO (07:29)
[2023-11-28] MEDS: DELTASONE 60 MG PO (07:29)
[2023-11-28] MEDS: VITAMIN D3 (cholecalciferol) 25 MCG PO (07:29)
[2023-11-28] MEDS: B COMPLEX w/VITAMIN C 1 CAPLET PO (07:32)
[2023-11-28 08:00] VITALS: BMI 24.6
[2023-11-28] MEDS: VISBIOME PO (08:02)
--- NOTE | 2023-11-28 09:13 | CON.GI ---
Addendum entered and electronically signed by Daniella Harvey DO 11/28/23 15:55:
Patient seen and examined independently of DON. I agree with her note with my additions below
Stephanie is a 33yoF with hx of breast cancer - stage IIIC - triple neg - carbo/taxol/keytruda -started 08/28 - followed by weekly carbo/taxol - last 11/[address] Morris.
Prior to chemotherapy patient had regular bowel movements. Loose brown stools with occasional blood started soon after her chemotherapy and has had to have a few breaks in between because of it. Patient was hospitalized at the end of September for
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 She had negative stool studies at that time. She was given IV steroids with improvement in strangest and to oral steroids but with continued recurrence of symptoms. On 60 mg of oral steroids she had an
occasional soft stool but generally always had at least 4 loose stools daily she was given Remicade on October 31 and has been on oral steroids since. Had a bio similar Remicade due to insurance issues on November 22. She restarted chemotherapy on
with Taxol and carboplatin with last dose on 11/20. she was on 60 mg of prednisone. On Sunday she had significant. Over 15 loose brown stools with drips of red blood with uncomfortable cramping and sweats during each bowel movement but no
tenderness to palpation.
Labs white count 4.5, hemoglobin 11.4, platelets 246, ESR and CRP are pending. Potassium 3.7, creatinine 0.5, ALT 40, AST 29, total bilirubin 0.2, lipase 52.
Stool calprotectin from September 2023 was greater than 3000
Previous hepatitis testing was negative
TB testing negative
Patient denies taking any significant antidiarrheals at home
Imaging from 11/27/2023 with no oral contrast showed probable colitis with mild circumferential diffuse wall thickening of the left colon including the rectum however limited without oral contrast. Right side of the colon appeared unremarkable.
CT imaging from 10/12/2023 showed pronounced colonic wall thickening of the right colon
-- This admission 11/27/2023 C. difficile negative, norovirus negative, many white blood cells, stool culture pending
patient has no significant abdominal pain and no tenderness to palpation
# Diarrhea -chemotherapy-induced diarrhea versus immunotherapy/checkpoint inhibitor colitis versus inflammatory bowel disease versus infectious like CMV
-- Check ESR CRP, await stool culture
-- Flexible sigmoidoscopy tomorrow for biopsies including CMV
-- Will switch oral steroids to IV, IV fluids, clear liquids for now
-- Patient is monitoring and keeping up with the number of stools. Please put them in the computer so we can follow them peripherally
Original Note:
Consultation
-
Date/Time Consultation Requested: 11/27/23 406
Date/Time Consultation Performed: 11/28/23914
Requesting Provider: DON Proctor
Performing Provider: DON Herrera, Daniella Harvey DO
Reason for Consultation: rectal bleeding
Medical History
Chief Complaint / HPI
Chief Complaint: diarrhea
History of Present Illness:
Pt is a 33yo W with h/o thyroid cancer diagnosed [id number] was due for possible surgery but developed L breast cancer triple neg stage IIIC diagnosed 07/2023. She completed chemo with Keytruda/Taxol and carbo 08/28 and several weeks after developed
diarrhea. She had chemo 09/18 without Keytruda then was hospitalized 10/11-10/17 with concern for colitis related to immunotherapy with neg stool studies 10/09. She was given IV steroids with improvement then transitioned to oral steroids with
recurrence of symptoms. She was also given Remicade October 31 and with denial of insurance had late second dose of biosimilar November 22. She also restarted chemo 11/13 with Taxol and Carbo with last dose 11/20. With initial Remicade she has some
improved symptoms but after chemo 11/13 she increased Prednisone back to 60mg daily with continued diarrhea and rectal bleeding. She now presents with about 8-9 bloody stools daily. She is also noted with some lower crampy abdominal pain with
nausea and back pain prior to BM's. No hx EGD, colonoscopy or flex in past. On admission CT with mild circumferental wall thickening of left colon and simgoid some limitation without contrast with similar finding distal half of transverse colon,
Labs with WBC 4.5, hbg 11.4, ALT 40 otherwise normal LFT's
She has some wt loss of 8-10 lbs during hospital admission but denies dysphagia, GERD, vomiting, or black stools. No family hx CRC, crohn's or colitis.
Past Medical History
Past Medical History: Other (Breast cancer triple neg stage IIIC (current chemo) Thyroid cancer, iron deficiency)
Past Surgical History: and Other (PORT placement, breast bx, thyroid bx, Csection x2)
Social History
Tobacco: Former Smoker (prior social )
Alcohol: None (prior social )
Drug: Marijuana (THC gummies)
Personal:
Living: With Family (mother and 2 kids (11 and 17yo ))
Employment: Other (currently off with medical disability )
Family History
Family History: Other (Denies IBD or CRC)
Allergies / Home Medications
Allergy/AdvReac Type Severity Reaction Status Date / Time
oxycodone [From Percocet] Allergy Itching Verified 11/21/23 08:48
�Medication �Instructions �Recorded
dicyclomine 20 mg tablet 20 mg PO QID PRN abdominal 09/26/23
cramping #10 tabs
Delta-8 Thc And Cbd Gummies 0.5 tab PO BIDPRN PRN nausea 10/01/23
Lactobac no.2-Bifidobac no.1-S. 1 cap PO DAILY probiotic 10/01/23
thermo 112.5 billion cell capsule
(Visbiome)
cholecalciferol (vitamin D3) 25 25 mcg PO DAILY Supplement 10/01/23
mcg (1,000 unit) tablet (Vitamin
D3)
omega 5-voq-bjq-fish oil 1,000 mg 1 cap PO DAILY Supplement 10/01/23
(120 mg-180 mg) capsule (Fish Oil)
vitamin B complex 1 tab PO DAILY Supplement 10/01/23
lorazepam 0.5 mg tablet (Ativan) 0.5 mg PO TID PRN nausea/cramping 10/10/23
#30 tabs
tramadol 50 mg tablet 50 mg PO Q4H PRN back pain 11/14/23
acetaminophen 500 mg tablet 1,000 mg PO Q6H PRN mild pain 11/27/23
potassium chloride 20 mEq 20 meq PO DAILY 11/27/23
tablet,extended release
prednisone 10 mg tablet 60 mg PO DAILY 11/27/23
turmeric 400 mg capsule 400 mg PO DAILY 11/27/23
Cocurcumin 5 g PO DAILY 11/28/23
Gi Repair Powder 5.15 g PO DAILY 11/28/23
Probiotic Medical Food 2 caplet PO BID 11/28/23
banana 1 ea PO DAILY 11/28/23
flakes-transgalactooligosaccharide
oral powder packet (Banatrol Plus
oral powder packet)
Review of Systems
-
History Source: Patient
Constitutional: Reports Weight Loss (during last admission )
EENT: Reports No Symptoms
Respiratory: Reports No Symptoms
Cardiac: Reports No Symptoms
Abdomen/GI: Reports Abdominal Pain, Nausea, Diarrhea and Bloody Stools
: Reports No Symptoms
Musculoskeletal: Reports No Symptoms
Skin: Reports No Symptoms
Neurological: Reports No Symptoms
Endocrine: Reports No Symptoms
Hematologic/Lymphatic: Reports Bleeding
Vital Signs
Temp Pulse Resp BP Pulse Ox
98.1 F 87 16 106/63 99
11/28/23 07:00 11/28/23 07:00 11/28/23 07:00 11/28/23 07:00 11/28/23 07:00
Physical Exam
Exam
General: Well Developed, Well Nourished and No Apparent Distress
HEENT: Normocephalic and Anicteric
Respiratory: Clear
Cardiac: Regular Rhythm
Breast: Other (palpable left breast mass )
GI: Soft, Non Tender and Non Distended
Rectal: Deferred by Provider (+ pain with prior exam)
Musculoskeletal: No Clubbing and No Cyanosis
Skin: Warm and Dry
Neuro: Awake, Alert and AO x 3
Psych: Calm
Results
WBC 4.5 10^3/uL (4.8-10.8) L 11/28/23 05:51
Hgb 11.4 g/dL (12.0-16.0) L 11/28/23 05:51
Hct 34.0 % (37.0-47.0) L 11/28/23 05:51
MCV 91.4 fL (81.0-99.0) 11/28/23 05:51
Plt Count 246 10^3/uL (130-400) 11/28/23 05:51
Absolute Neuts (auto) 2.9 10^3/uL (1.4-6.5) 11/27/23 18:52
Sodium 136 mmol/L (135-145) 11/28/23 05:51
Potassium 3.7 mmol/L (3.5-5.1) 11/28/23 05:51
Chloride 102 mmol/L (98-107) 11/28/23 05:51
Carbon Dioxide 29 mmol/L (22-30) 11/28/23 05:51
BUN 6 mg/dl (7-17) L 11/28/23 05:51
Creatinine 0.5 mg/dL (0.6-1.0) L 11/28/23 05:51
Calcium 9.1 mg/dl (8.4-10.2) 11/28/23 05:51
Total Bilirubin 0.2 mg/dl (0.2-1.3) 11/27/23 18:52
AST 29 U/L (14-36) 11/27/23 18:52
ALT 40 U/L (0-35) H 11/27/23 18:52
Alkaline Phosphatase 43 U/L (38-126) 11/27/23 18:52
Lipase 52 U/L (23-300) 11/27/23 18:52
Diagnostic Image Results:
10/12/23 CT IV and oral
1. Pronounced colonic thickening involving the cecum, and ascending colon, hepatic flexure, and proximal transverse colon, consistent with colitis. Colitis is likely infectious or inflammatory.
2. No evidence of pneumatosis intestinalis or extraluminal air.
11/27/23 CT IV contrast only
Abdomen and pelvis: The liver, spleen, gallbladder and pancreas are unremarkable. The adrenal glands and kidneys are unremarkable. The abdominal aorta is normal caliber. No significant lymphadenopathy is noted. Bowel loops are normal caliber. The
terminal ileum is within normal limits. The appendix is not visualized. There is mild fecal material in the colon. There is probable mild circumferential diffuse wall thickening of the left colon and sigmoid colon and rectum as can be seen with
colitis. However, evaluation is limited without oral contrast. This may be simply due to limited distention. Similar findings are noted in the distal half of the transverse colon as well.
No free fluid is noted. The urinary bladder is unremarkable.
IMPRESSION: Probable colitis as described above. Findings due to limited distention and lack of oral contrast cannot be excluded.
Prior GI Procedures:
EGD: none
Colonoscopy: none
Assessment / Plan
-
Pt is a 33yo W with h/o thyroid cancer diagnosed [id number] was due for possible surgery but developed L breast cancer triple neg stage IIIC diagnosed 07/2023. She completed chemo with Keytruda(only one dose with first chemo given)/Taxol and carbo
08/28 and several weeks after developed diarrhea. She had chemo 09/18 without Keytruda then was hospitalized 10/11-10/17 with concern for colitis related to immunotherapy with neg stool studies 10/09. She was given IV steroids with improvement then
transitioned to oral steroids with recurrence of symptoms. She was also given Remicade October 31 and with denial of insurance had late second dose of biosimilar November 22 by oncology. She also restarted chemo 11/13 with Taxol and Carbo with last dose
11/20. With initial Remicade she has some improved symptoms but after chemo 11/13 she increased Prednisone back to 60mg daily with continued diarrhea and rectal bleeding. She now presents with about 8-9 bloody stools daily. She is also noted with
some lower crampy abdominal pain with nausea and back pain prior to BM's. No hx EGD, colonoscopy or flex in past. On admission CT with mild circumferental wall thickening of left colon and sigmoid some limitation without contrast with similar
finding distal half of transverse colon.
Impression
- rectal bleeding
-admission in September with colitis with concern for immune therapy related
- L breast cancer diagnosed 07/2023-- current chemo therapy
- Thyroid cancer (10/10/23- TSH 0.29, T4 1.36)
- hx Iron def anemia
Recommendations
Etiology of diarrhea and bleeding with concern related to colitis as still noted inflammation on CT--- Immunotherapy related vs chemo vs infectious vs other
await stool studies
t/c flex vs colonoscopy-- will review timing with Dr. Harvey
currently on Prednisone 60mg daily
last chemo 11/20
last biosimilar to remicade 11/22
clear diet
side effect -- taxol --Gastrointestinal: Diarrhea (38%), nausea and vomiting (52%), stomatitis (17% to 31%; grades 3/4: <=%)
carbo-- Gastrointestinal pain (17%), nausea (10% to 15%), nausea and vomiting (92%), vomiting (65% to 81%; severe vomitin%)
Gastrointestinal: Constipation (6%), diarrhea (6%), dysgeusia (1%), stomatitis (1%)
Keytruda Abdominal pain (11% to 23%)�(See�Table 5), constipation (12% to 22%), decreased appetite (15% to 25%), diarrhea (12% to 28%; grades 3/4: <=%)�(See�Table 6), nausea (11% to 22%; grades 3/ 4:
<=%), vomiting (infants, children, adolescents: 29%; adults: 11% to 19%; grades 3/4: <=%) Colitis (2%), dysphagia (8%), stomatitis (3%)�(See�Table 16)
-
-
Thank you for consultation and allowing me to participate in the patient's care. Please call the auto emissions technician GI physician during the after hours with any questions or concerns.
[2023-11-28 11:32] VITALS: BP 130/80
--- NOTE | 2023-11-28 13:54 | W.PN.HOSP.TC ---
Today's Communication/Plan
-
Check stool cultures
Clear liquid diet
GI consult
Assessment / Plan
Assessment / Plan
Gen-AAOx3, NAD
HEENT-NC, AT, anicteric, clear oral mm
Neck-supple
CV-reg, no M, +S1/S2
Lungs-clear B/L
Abd-soft, NT, ND
Ext-no edema
Musculoskeletal-no cyanosis, clubbing
Skin-warm and dry
Neuro-grossly non-focal
Psych-calm, cooperative
Acute colitis -differential diagnosis includes immunologic versus adverse drug reaction versus infectious versus inflammatory. CT scan shows left-sided colitis. Study is limited by lack of oral contrast.
Stool negative for C. difficile. Norovirus negative. Culture pending. Consult GI. She looks nontoxic.
Stage III triple negative breast cancer -followed by Dr. Newberry. On chemotherapy.
Thyroid cancer -not yet treated.
Full code
Anticipated Discharge: > 48 hours
Subjective/Interval History
-
Date of Service: November 28, 2023
Patient seen and examined. Complaining of lower back pain.
Objective Data
-
Labs:
Laboratory Results
11/28/23
05:51
WBC 4.5 L
Hgb 11.4 L
Hct 34.0 L
Plt Count 246
Sodium 136
Potassium 3.7
Chloride 102
Carbon Dioxide 29
BUN 6 L
Creatinine 0.5 L
Glucose 86
Calcium 9.1
Vital Signs:
Vital Signs
Temp Pulse Resp BP Pulse Ox
98.1 F 86 18 130/80 98
11/28/23 11:32 11/28/23 11:32 11/28/23 11:32 11/28/23 11:32 11/28/23 11:32
Review of Systems
-
History Source: Patient
All other systems: Reviewed and negative
[2023-11-28 15:00] VITALS: BP 155/99
[2023-11-28 16:16] LABS: Erythrocyte Sed Rate 11 mm/hour (0-20)
[2023-11-28] MEDS: SOLU-MEDROL PF 20 MG IV (16:18)
[2023-11-28] MEDS: ULTRAM 75 MG PO ×2 (16:53→23:17)
[2023-11-28 17:02] LABS: C-Reactive Protein < 5.00 mg/L (0.0-10.00)
[2023-11-28] MEDS: PEPCID 40 MG PO (22:04)
[2023-11-28 23:00] VITALS: BP 121/71
[2023-11-29] VITALS (8 sets, daily range): BP systolic 14–130; BP diastolic 66–87
[2023-11-29] MEDS: SOLU-MEDROL PF 20 MG IV ×4 (00:37→23:17)
[2023-11-29] MEDS: DILAUDID 0.5 MG IV ×3 (00:45→23:17)
[2023-11-29] MEDS: KCL 20 MEQ PO (07:53)
[2023-11-29] MEDS: B COMPLEX w/VITAMIN C 1 CAPLET PO (07:53)
[2023-11-29] MEDS: VITAMIN D3 (cholecalciferol) 25 MCG PO (07:53)
[2023-11-29] MEDS: VISBIOME 1 CAP PO (07:54)
[2023-11-29] MEDS: ULTRAM 75 MG PO ×3 (07:54→21:01)
[2023-11-29 08:39] LABS: Hematocrit 39.7 % (37.0-47.0); Hemoglobin 13.8 g/dL (12.0-16.0); Mean Corp Hgb Conc. 34.8 g/dL (33.0-37.0); Mean Corpuscular Hgb 30.5 pg (27.0-31.0); Mean Corpuscular Volume 87.6 fL (81.0-99.0); Red Blood Cell Count 4.53 10^6/uL (4.20-5.40); White Blood Cell Count 5.4 10^3/uL (4.8-10.8)
[2023-11-29 08:48] LABS: INR 1.14; PT 14.7 Sec (11.4-14.6)
[2023-11-29 09:24] LABS: Blood Urea Nitrogen 4 mg/dl (7-17); Calcium 10.1 mg/dl (8.4-10.2); Carbon Dioxide 25 mmol/L (22-30); Chloride 98 mmol/L (98-107); Estimated Creatinine Clearance 104 ml/min; Glucose 138 mg/dl (70-99); Potassium 4.3 mmol/L (3.5-5.1); Sodium 134 mmol/L (135-145); eGFR > 60.00
[2023-11-29 09:58] LABS: C-Reactive Protein < 5.00 mg/L (0.0-10.00)
[2023-11-29] MEDS: NSS 1000 IV ×2 (11:50→23:25)
--- NOTE | 2023-11-29 12:55 | CM ---
Met with patient at the bedside; initial assessment completed
Pharmacy verified: [facility], [address], [place]
Patient reported she and her 2 sons live with her family in a multilevel home; 4 steps to enter; 12 steps between floors; powder room on 1st floor; her bedroom and bath on the 2nd floor; bath has tub w/ shower; no grab bar
PLOF: reported she is independent with ambulation, stairs, and ADls; has a car; not currently driving; mother drives her
DME: none
SNF/Home Health utilization history: none
Provided [employer] website for [employer] insecurity
Transportation: Mother will transport home
Plan: discharge to home when medically stable; CM will monitor for needs
--- NOTE | 2023-11-29 13:36 | W.PN.HOSP.TC ---
Today's Communication/Plan
-
Continue current care
Assessment / Plan
Assessment / Plan
Gen-AAOx3, NAD
HEENT-NC, AT, anicteric, clear oral mm
Neck-supple
CV-reg, no M, +S1/S2
Lungs-clear B/L
Abd-soft, NT, ND
Ext-no edema
Musculoskeletal-no cyanosis, clubbing
Skin-warm and dry
Neuro-grossly non-focal
Psych-calm, cooperative
Acute colitis -presentation with hematochezia and loose stools. Differential diagnosis includes immunologic versus adverse drug reaction versus infectious versus inflammatory. CT scan shows left-sided colitis. Study is limited by lack of oral
contrast. Hemoglobin is normal so far.
Stool negative for C. difficile. Norovirus negative. Culture pending.
Flex sig completed today, no significant ulcerations noted, but the mucosa was friable and easily bled. Biopsies performed.
IV steroids per GI service.
Hyponatremia -134. Monitor for now.
Stage III triple negative breast cancer -followed by Dr. Newberry. On chemotherapy.
Thyroid cancer -not yet treated.
Full code
Anticipated Discharge: 24 - 48 hours
Subjective/Interval History
-
Date of Service: November 29, 2023
Patient seen and examined. Complaining of grogginess after flex sig today.
Objective Data
-
Labs:
Laboratory Results
11/29/23
08:27
WBC 5.4
Hgb 13.8 D
Hct 39.7
Plt Count
PT 14.7 H
INR 1.14
Sodium 134 L
Potassium 4.3
Chloride 98
Carbon Dioxide 25
BUN 4 L
Creatinine 0.6
Glucose 138 H
Calcium 10.1
Vital Signs:
Vital Signs
Temp Pulse Resp BP Pulse Ox
97.0 F 86 6 121/80 99
11/29/23 10:28 11/29/23 10:54 11/29/23 10:54 11/29/23 10:54 11/29/23 10:55
I&O
11/28/23 11/29/23 11/30/23
06:59 06:59 06:59
Intake Total 1020 / 1020
Balance 1020 / 1020
Review of Systems
-
History Source: Patient
All other systems: Reviewed and negative
[2023-11-29] MEDS: PEPCID 40 MG PO (21:01)
[2023-11-29] MEDS: IMODIUM 2 MG PO (23:17)
[2023-11-30] MEDS: DILAUDID 0.5 MG IV ×2 (03:29→14:45)
[2023-11-30] MEDS: ULTRAM 75 MG PO ×3 (06:13→21:08)
[2023-11-30 07:00] VITALS: BP 119/73
[2023-11-30 07:59] LABS: Hematocrit 35.1 % (37.0-47.0); Hemoglobin 11.4 g/dL (12.0-16.0); Mean Corp Hgb Conc. 32.5 g/dL (33.0-37.0); Mean Corpuscular Hgb 29.8 pg (27.0-31.0); Mean Corpuscular Volume 91.6 fL (81.0-99.0); Mean Platelet Volume 9.4 fL (7.4-10.4); Platelet Count 279 10^3/uL (130-400); Red Blood Cell Count 3.83 10^6/uL (4.20-5.40); White Blood Cell Count 4.7 10^3/uL (4.8-10.8)
[2023-11-30 08:26] LABS: Blood Urea Nitrogen 7 mg/dl (7-17); Calcium 9.3 mg/dl (8.4-10.2); Carbon Dioxide 29 mmol/L (22-30); Chloride 101 mmol/L (98-107); Estimated Creatinine Clearance 104 ml/min; Glucose 100 mg/dl (70-99); Potassium 4.1 mmol/L (3.5-5.1); Sodium 137 mmol/L (135-145); eGFR > 60.00
[2023-11-30 08:28] LABS: C-Reactive Protein < 5.00 mg/L (0.0-10.00)
[2023-11-30] MEDS: SOLU-MEDROL PF 20 MG IV ×3 (10:45→23:25)
[2023-11-30] MEDS: KCL 20 MEQ PO (10:46)
[2023-11-30] MEDS: VISBIOME 1 CAP PO (10:46)
[2023-11-30] MEDS: B COMPLEX w/VITAMIN C 1 CAPLET PO (10:46)
[2023-11-30] MEDS: VITAMIN D3 (cholecalciferol) 25 MCG PO (10:47)
[2023-11-30] MEDS: IMODIUM 2 MG PO (11:03)
--- NOTE | 2023-11-30 12:51 | W.PN.HOSP.TC ---
Today's Communication/Plan
-
Await GI input.
Assessment / Plan
Assessment / Plan
Gen-AAOx3, NAD
HEENT-NC, AT, anicteric, clear oral mm
Neck-supple
CV-reg, no M, +S1/S2
Lungs-clear B/L
Abd-soft, NT, ND
Ext-no edema
Musculoskeletal-no cyanosis, clubbing
Skin-warm and dry
Neuro-grossly non-focal
Psych-calm, cooperative
Acute colitis -presentation with hematochezia and loose stools. Differential diagnosis includes immunologic versus adverse drug reaction versus infectious versus inflammatory. Strong suspicion of chemotherapy induced colitis. CT scan shows
left-sided colitis. Study is limited by lack of oral contrast. Hemoglobin is normal so far.
Stool negative for C. difficile. Norovirus negative. Stool culture negative so far.
Flex sig completed 11/28, no significant ulcerations noted, but the mucosa was friable and easily bled. Biopsies performed.
IV steroids per GI service.
Hyponatremia - resolved.
Stage III triple negative breast cancer -followed by Dr. Newberry. On chemotherapy.
Thyroid cancer -not yet treated.
Full code
Anticipated Discharge: Within 24 hours
Subjective/Interval History
-
Date of Service: November 30, 2023
Patient seen and examined. Still with loose stools and some blood but overall improving.
Objective Data
-
Labs:
Laboratory Results
11/30/23
07:18
WBC 4.7 L
Hgb 11.4 L
Hct 35.1 L
Plt Count 279
Sodium 137
Potassium 4.1
Chloride 101
Carbon Dioxide 29
BUN 7
Creatinine 0.5 L
Glucose 100 H
Calcium 9.3
Vital Signs:
Vital Signs
Temp Pulse Resp BP Pulse Ox
98.0 F 76 18 119/73 98
11/30/23 07:00 11/30/23 07:00 11/30/23 07:00 11/30/23 07:00 11/30/23 07:00
I&O
11/29/23 11/30/23 12/01/23
06:59 06:59 06:59
Intake Total 1020 / 1020 1040 / 1040
Balance 1020 / 1020 1040 / 1040
Review of Systems
-
History Source: Patient
All other systems: Reviewed and negative
[2023-11-30 15:00] VITALS: BP 131/80
--- NOTE | 2023-11-30 16:09 | W.PN.GI.CBS2 ---
Addendum entered and electronically signed by Eleazar Estrada MD 11/30/23 18:48:
I saw and examined the patient.
The HEADLINE WRITER or PA's note was reviewed and I agree with the note.
Comment:
Pt with much improved diarrhea/cramps with IV steroids. still lower pelvic/back pain
alert, oriented
impression'
diarrhea s/p flex sig presumed chemo related
plan:
await second opinion of path
imodium prn
continue IV steroids for another day
back/pelvic pain likely related to pelvic spasm; dicyclomine vs valium suppositories if continues
Original Note:
Today's Communication / Plan
-
Etiology of diarrhea and bleeding with concern related to colitis as still noted inflammation on CT--- Immunotherapy related vs chemo vs infectious vs other
stool studies neg
s/p flex -- path being sent to [facility] for review-- noted active colitis
cont IV steroids -- improved with use consider transition to PO in AM but may need hosp observation on PO dosing as did not tolerate in past
Imodium PRN minimal change with daily dose given
last chemo 11/20
last biosimilar to remicade 11/22
regular diet as tolerated
next chemo plan per surgery
side effects -- taxol --Gastrointestinal: Diarrhea (38%), nausea and vomiting (52%), stomatitis (17% to 31%; grades 3/4: <=%)
carbo-- Gastrointestinal pain (17%), nausea (10% to 15%), nausea and vomiting (92%), vomiting (65% to 81%; severe vomitin%)
Gastrointestinal: Constipation (6%), diarrhea (6%), dysgeusia (1%), stomatitis (1%)
Keytruda Abdominal pain (11% to 23%)�(See�Table 5), constipation (12% to 22%), decreased appetite (15% to 25%), diarrhea (12% to 28%; grades 3/4: <=%)�(See�Table 6), nausea (11% to 22%; grades 3/ 4:
<=%), vomiting (infants, children, adolescents: 29%; adults: 11% to 19%; grades 3/4: <=%) Colitis (2%), dysphagia (8%), stomatitis (3%)�(See�Table 16)
Assessment / Plan
-
Pt is a 33yo W with h/o thyroid cancer diagnosed [id number] was due for possible surgery but developed L breast cancer triple neg stage IIIC diagnosed 07/2023. She completed chemo with Keytruda(only one dose with first chemo given)/Taxol and carbo
08/28 and several weeks after developed diarrhea. She had chemo 09/18 without Keytruda then was hospitalized 10/11-10/17 with concern for colitis related to immunotherapy with neg stool studies 10/09. She was given IV steroids with improvement then
transitioned to oral steroids with recurrence of symptoms. She was also given Remicade October 31 and with denial of insurance had late second dose of biosimilar November 22 by oncology. She also restarted chemo 11/13 with Taxol and Carbo with last dose
11/20. With initial Remicade she has some improved symptoms but after chemo 11/13 she increased Prednisone back to 60mg daily with continued diarrhea and rectal bleeding. She now presents with about 8-9 bloody stools daily. She is also noted with
some lower crampy abdominal pain with nausea and back pain prior to BM's. No hx EGD, colonoscopy or flex in past. On admission CT with mild circumferential wall thickening of left colon and sigmoid some limitation without contrast with similar
finding distal half of transverse colon.
11/28- flex Diffuse moderate inflammation was found in the rectum, in the recto-sigmoid colon and in the sigmoid colon secondary to colitis. Biopsied.
Impression
- rectal bleeding
-admission in September with colitis with concern for immune therapy related
- L breast cancer diagnosed 07/2023-- current chemo therapy
- Thyroid cancer (10/10/23- TSH 0.29, T4 1.36)
- hx Iron def anemia
Recommendations
Etiology of diarrhea and bleeding with concern related to colitis as still noted inflammation on CT--- Immunotherapy related vs chemo vs infectious vs other
stool studies neg
s/p flex -- path being sent to [facility] for review-- noted active colitis
cont IV steroids -- improved with use consider transition to PO in AM but may need hosp observation on PO dosing as did not tolerate in past
Imodium PRN minimal change with daily dose given
last chemo 11/20
last biosimilar to remicade 11/22
regular diet as tolerated
next chemo plan per surgery
side effects -- taxol --Gastrointestinal: Diarrhea (38%), nausea and vomiting (52%), stomatitis (17% to 31%; grades 3/4: <=%)
carbo-- Gastrointestinal pain (17%), nausea (10% to 15%), nausea and vomiting (92%), vomiting (65% to 81%; severe vomitin%)
Gastrointestinal: Constipation (6%), diarrhea (6%), dysgeusia (1%), stomatitis (1%)
Keytruda Abdominal pain (11% to 23%)�(See�Table 5), constipation (12% to 22%), decreased appetite (15% to 25%), diarrhea (12% to 28%; grades 3/4: <=%)�(See�Table 6), nausea (11% to 22%; grades 3/ 4:
<=%), vomiting (infants, children, adolescents: 29%; adults: 11% to 19%; grades 3/4: <=%) Colitis (2%), dysphagia (8%), stomatitis (3%)�(See�Table 16)
Subjective
Subjective
Date of Service: November 30, 2023
less stool and less bleeding only 2 stools with small amount of blood today, on regular diet no abdominal pain but pressure with BM's
Objective
Data Reviewed
Laboratory Data:
Laboratory Results
11/30/23 07:18
11/30/23 07:18
Laboratory Results
PT 14.7 Sec (11.4-14.6) H 11/29/23 08:27
INR 1.14 11/29/23 08:27
Total Bilirubin 0.2 mg/dl (0.2-1.3) 11/27/23 18:52
AST 29 U/L (14-36) 11/27/23 18:52
ALT 40 U/L (0-35) H 11/27/23 18:52
Alkaline Phosphatase 43 U/L (38-126) 11/27/23 18:52
Lipase 52 U/L (23-300) 11/27/23 18:52
Vital Signs and I&O:
Vital Signs
Temp Pulse Resp BP Pulse Ox
97.9 F 86 18 131/80 100
11/30/23 15:00 11/30/23 15:00 11/30/23 15:00 11/30/23 15:00 11/30/23 15:00
I&O
11/29/23 11/30/23 12/01/23
06:59 06:59 06:59
Intake Total 1020 / 1020 1040 / 1040
Balance 1020 / 1020 1040 / 1040
Physical Exam
Physical Exam
HEENT: Anicteric and Moist mucous membranes
Cardiology: Normal Sinus Rhythm
Pulmonary: Clear
GI: Soft, Non Distended and Non Tender
Extremities: No Edema
Neuro: Non Focal
[2023-11-30] MEDS: PEPCID 40 MG PO (21:08)
[2023-11-30 23:12] VITALS: BP 114/73
[2023-12-01] MEDS: DILAUDID 0.5 MG IV (01:15)
[2023-12-01 07:10] VITALS: BP 125/82
[2023-12-01 08:12] LABS: Blood Urea Nitrogen 6 mg/dl (7-17); Calcium 9.5 mg/dl (8.4-10.2); Carbon Dioxide 32 mmol/L (22-30); Chloride 100 mmol/L (98-107); Estimated Creatinine Clearance 104 ml/min; Glucose 100 mg/dl (70-99); Potassium 4.3 mmol/L (3.5-5.1); Sodium 137 mmol/L (135-145); eGFR > 60.00
[2023-12-01 08:21] LABS: Hematocrit 35.3 % (37.0-47.0); Hemoglobin 11.7 g/dL (12.0-16.0); Mean Corp Hgb Conc. 33.1 g/dL (33.0-37.0); Mean Corpuscular Hgb 30.2 pg (27.0-31.0); Platelet Count 298 10^3/uL (130-400); Red Blood Cell Count 3.88 10^6/uL (4.20-5.40); Red Cell Dist. Width 18.7 % (11.5-14.5); White Blood Cell Count 6.1 10^3/uL (4.8-10.8)
[2023-12-01 08:42] LABS: C-Reactive Protein < 5.00 mg/L (0.0-10.00)
[2023-12-01] MEDS: ULTRAM 75 MG PO (08:56)
[2023-12-01] MEDS: B COMPLEX w/VITAMIN C 1 CAPLET PO (08:57)
[2023-12-01] MEDS: VITAMIN D3 (cholecalciferol) 25 MCG PO (08:58)
[2023-12-01] MEDS: VISBIOME 1 CAP PO (08:58)
[2023-12-01] MEDS: KCL 20 MEQ PO (08:58)
[2023-12-01] MEDS: SOLU-MEDROL PF 20 MG IV (08:59)
--- NOTE | 2023-12-01 09:38 | W.PN.HOSP.TC ---
Today's Communication/Plan
-
Discharge
Assessment / Plan
Assessment / Plan
Gen-AAOx3, NAD
HEENT-NC, AT, anicteric, clear oral mm
Neck-supple
CV-reg, no M, +S1/S2
Lungs-clear B/L
Abd-soft, NT, ND
Ext-no edema
Musculoskeletal-no cyanosis, clubbing
Skin-warm and dry
Neuro-grossly non-focal
Psych-calm, cooperative
Acute colitis -presentation with hematochezia and loose stools. Differential diagnosis includes immunologic versus adverse drug reaction versus infectious versus inflammatory. Strong suspicion of chemotherapy induced colitis. CT scan shows
left-sided colitis. Study is limited by lack of oral contrast. Hemoglobin stable.
Stool negative for C. difficile. Norovirus negative. Stool culture negative so far.
Flex sig completed 11/28, no significant ulcerations noted, but the mucosa was friable and easily bled. Biopsies performed.
Okay to discharge home today on slow prednisone taper. Discussed with GI service. Start at 60 mg daily and reduce by 5 mg weekly. Goal will be for 2 months of steroids.
Hyponatremia - resolved.
Stage III triple negative breast cancer -followed by Dr. Newberry. On chemotherapy.
Thyroid cancer -not yet treated.
Full code
Dispo -medically stable for discharge. Outpatient follow-up with GI and PCP. Follow-up with oncology.
32 minutes spent in discharge process.
Anticipated Discharge: Today
Subjective/Interval History
-
Date of Service: December 01, 2023
Patient seen and examined. States bleeding stopped.
Objective Data
-
Labs:
Laboratory Results
12/01/23
06:51
WBC 6.1
Hgb 11.7 L
Hct 35.3 L
Plt Count 298
Sodium 137
Potassium 4.3
Chloride 100
Carbon Dioxide 32 H
BUN 6 L
Creatinine 0.5 L
Glucose 100 H
Calcium 9.5
Vital Signs:
Vital Signs
Temp Pulse Resp BP Pulse Ox
97.7 F 75 16 125/82 98
12/01/23 07:10 12/01/23 07:10 12/01/23 07:10 12/01/23 07:10 12/01/23 07:10
I&O
11/30/23 12/01/23 12/02/23
06:59 06:59 06:59
Intake Total 1040 / 1040 1300 / 1300
Balance 1040 / 1040 1300 / 1300
Review of Systems
-
History Source: Patient
All other systems: Reviewed and negative
--- NOTE | 2023-12-01 09:50 | W.DS.TRANS ---
DC Summary - Director Of Planning
-
Discharge Instructions:
Discharge Diagnosis/Procedures Acute colitis
Diet Regular,Other diet
Additional Diets Low dairy
Activity As tolerated
Driving Restrictions As prior to admission
Bathing Restrictions None
Instructions:
Stand-Alone Forms:
Changes to Home Medications: No
Discharge Medications:
DC Medications w/original date entered in [facility]
dicyclomine 20 mg tablet 20 mg PO QID PRN abdominal cramping #10 tabs 09/26/23
Lactobac no.2-Bifidobac no.1-S. thermo 112.5 billion cell capsule (Visbiome) 1 cap PO DAILY probiotic 10/01/23
cholecalciferol (vitamin D3) 25 mcg (1,000 unit) tablet (Vitamin D3) 25 mcg PO DAILY Supplement 10/01/23
vitamin B complex 1 tab PO DAILY Supplement 10/01/23
lorazepam 0.5 mg tablet (Ativan) 0.5 mg PO TID PRN nausea/cramping #30 tabs 10/10/23
tramadol 50 mg tablet 50 mg PO Q4H PRN back pain 11/14/23
acetaminophen 500 mg tablet 1,000 mg PO Q6H PRN mild pain 11/27/23
potassium chloride 20 mEq tablet,extended release 20 meq PO DAILY Supplement 11/27/23
famotidine 40 mg tablet 40 mg PO HS #30 tabs 12/01/23
loperamide 2 mg capsule 2 mg PO Q4HPRN PRN diarrhea #0 caps 12/01/23
prednisone 10 mg tablet 10 mg PO DAILY Anti-Inflammatory #180 tabs 12/01/23
Home Medication Changes
Pending Results: No
[2023-12-01] MEDS: TYLENOL 1000 MG PO (10:27)
[2023-12-01] MEDS: BENTYL 20 MG PO (10:28)
[2023-12-01 11:00] VITALS: BP 122/70
== END 2023-12-01 12:00 | disposition home or self-care (01) | DRG 394 ==
LOC: 4 WEST ACU 22:45
PROVIDERS: Nurse Practitioner Adult Health; Registered Nurse; ADMITTING PHYSICIAN Hospitalist; ATTENDING PHYSICIAN Hospitalist; CONSULT PHYSICIAN Internal Medicine; EMERGENCY PHYSICIAN Emergency Medicine; FAMILY PHYSICIAN Family Medicine
PROC: 0DBN8ZX Excision of Sigmoid Colon, Via Natural or Artificial Opening Endoscopic, Diagnostic (ICD-10-PCS; 2023-11-29)
DX: K52.1 Toxic gastroenteritis and colitis (principal); E87.1 Hypo-osmolality and hyponatremia; Z87.891 Personal history of nicotine dependence; C50.919 Malignant neoplasm of unspecified site of unspecified female breast; Z17.1 Estrogen receptor negative status [ER-]; C73 Malignant neoplasm of thyroid gland; T45.1X5A Adverse effect of antineoplastic and immunosuppressive drugs, initial encounter
CPT/HCPCS: 88305; 74177; 80048; 80053; 81003; 81025; 83605; 83690; 85025; 85027; 85610; 85652; 86140; 87045; 87046; 87077; 87324; 87427; 87449; 87798; 88342; 89055; Q9967

== ENCOUNTER → 2023-12-18 14:38 | Outpatient (REF) | payer BC, SELFPAY ==
[2023-12-18 15:34] LABS: % Basophils 0.1 % (0-2); % Immature Granulocytes 0.5 % (0-0.5); % Lymphocytes 15.4 % (20.5-51.1); % Monocytes 0.9 % (1.7-9.3); % Neutrophils 83.1 % (42.2-75.2); Absolute Lymphocytes 1.2 10^3/uL (1.2-3.4); Absolute Monocytes 0.1 10^3/uL (0.1-0.6); Absolute Neutrophils 6.3 10^3/uL (1.4-6.5); Hematocrit 40.1 % (37.0-47.0); Mean Corp Hgb Conc. 32.4 g/dL (33.0-37.0); Mean Corpuscular Hgb 31.1 pg (27.0-31.0); Mean Corpuscular Volume 95.9 fL (81.0-99.0); Mean Platelet Volume 9.7 fL (7.4-10.4); Nucleated Red Blood Cells % 0 %; Platelet Count 219 10^3/uL (130-400); Red Blood Cell Count 4.18 10^6/uL (4.20-5.40); Red Cell Dist. Width 17.4 % (11.5-14.5); White Blood Cell Count 7.6 10^3/uL (4.8-10.8)
[2023-12-18 16:24] LABS: ALT (SGPT) 59 U/L (0-35); AST (SGOT) 30 U/L (14-36); Albumin 4.2 g/dl (3.5-5.0); Alkaline Phosphatase 49 U/L (38-126); Blood Urea Nitrogen 10 mg/dl (7-17); Calcium 9.5 mg/dl (8.4-10.2); Carbon Dioxide 26 mmol/L (22-30); Chloride 101 mmol/L (98-107); Glucose 137 mg/dl (70-99); Potassium 4.5 mmol/L (3.5-5.1); Sodium 135 mmol/L (135-145); Total Bilirubin 0.3 mg/dl (0.2-1.3); Total Protein 6.5 g/dl (6.3-8.2); eGFR > 60.00
[2023-12-18 16:52] LABS: TSH 0.22 uIU/ml (0.47-4.68)
[2023-12-21 00:16] LABS: Total T3 (Sendout) 79 ng/dL (80-200)
== END ==
LOC: REG 14:38
PROVIDERS: ATTENDING PHYSICIAN Internal Medicine Hematology & Oncology; FAMILY PHYSICIAN Family Medicine
DX: C50.412 Malignant neoplasm of upper-outer quadrant of left female breast (principal); D50.8 Other iron deficiency anemias; E55.9 Vitamin D deficiency, unspecified; K52.9 Noninfective gastroenteritis and colitis, unspecified
CPT/HCPCS: 36415; 80053; 84439; 84443; 84480; 85025

== ENCOUNTER 2023-12-19 10:37 | Outpatient (RCR) | payer BC, SELFPAY ==
[2023-11-21 08:17] VITALS: BMI 26.5
[2023-11-21 08:17] LABS: % Basophils 0.3 % (0-2); % Eosinophils 0.5 % (0-6); % Immature Granulocytes 0.3 % (0-0.5); % Lymphocytes 56.6 % (20.5-51.1); % Monocytes 7.2 % (1.7-9.3); % Neutrophils 35.1 % (42.2-75.2); Absolute Lymphocytes 3.4 10^3/uL (1.2-3.4); Absolute Monocytes 0.4 10^3/uL (0.1-0.6); Absolute Neutrophils 2.1 10^3/uL (1.4-6.5); Hematocrit 38.3 % (37.0-47.0); Hemoglobin 12.5 g/dL (12.0-16.0); Mean Corp Hgb Conc. 32.6 g/dL (33.0-37.0); Mean Corpuscular Hgb 30.1 pg (27.0-31.0); Mean Corpuscular Volume 92.3 fL (81.0-99.0); Mean Platelet Volume 9.9 fL (7.4-10.4); Platelet Count 267 10^3/uL (130-400); Red Blood Cell Count 4.15 10^6/uL (4.20-5.40); Red Cell Dist. Width 19.4 % (11.5-14.5)
[2023-11-21 08:18] VITALS: BP 127/86
[2023-11-21 08:39] LABS: ALT (SGPT) 35 U/L (0-35); AST (SGOT) 21 U/L (14-36); Albumin 3.6 g/dl (3.5-5.0); Alkaline Phosphatase 49 U/L (38-126); Blood Urea Nitrogen 13 mg/dl (7-17); Calcium 9.6 mg/dl (8.4-10.2); Carbon Dioxide 28 mmol/L (22-30); Chloride 100 mmol/L (98-107); Estimated Creatinine Clearance 116 ml/min; Glucose 115 mg/dl (70-99); Sodium 136 mmol/L (135-145); Total Bilirubin 0.3 mg/dl (0.2-1.3); Total Protein 5.8 g/dl (6.3-8.2); eGFR > 60.00
[2023-11-21] MEDS: PEPCID 52 MG IV (09:12)
[2023-11-21] MEDS: ALOXI 5 MG IV (09:13)
[2023-11-21] MEDS: DECADRON 52 MG IV (09:42)
[2023-11-21] MEDS: BENADRYL 51 MG IV (10:09)
[2023-11-21] MEDS: TAXOL/PACLITAXEL 269.5 MG IV (10:49)
[2023-11-21 10:56] VITALS: BP 111/69
[2023-11-21] MEDS: PARAPLATIN 268.9 MG IV (12:02)
[2023-11-21 15:00] VITALS: BP 138/83
[2023-12-12 08:36] LABS: % Basophils 0.1 % (0-2); % Eosinophils 0.1 % (0-6); % Immature Granulocytes 0.4 % (0-0.5); % Lymphocytes 44.3 % (20.5-51.1); % Monocytes 5.1 % (1.7-9.3); Absolute Lymphocytes 4.2 10^3/uL (1.2-3.4); Absolute Monocytes 0.5 10^3/uL (0.1-0.6); Absolute Neutrophils 4.8 10^3/uL (1.4-6.5); Hematocrit 38.6 % (37.0-47.0); Hemoglobin 12.6 g/dL (12.0-16.0); Mean Corp Hgb Conc. 32.6 g/dL (33.0-37.0); Mean Corpuscular Hgb 31.2 pg (27.0-31.0); Mean Corpuscular Volume 95.5 fL (81.0-99.0); Mean Platelet Volume 9.6 fL (7.4-10.4); Platelet Count 224 10^3/uL (130-400); Red Blood Cell Count 4.04 10^6/uL (4.20-5.40); Red Cell Dist. Width 18.1 % (11.5-14.5); White Blood Cell Count 9.5 10^3/uL (4.8-10.8)
[2023-12-12 08:42] VITALS: BP 122/77
[2023-12-12 08:55] VITALS: BMI 27.0
[2023-12-12] MEDS: MOTRIN 200 MG PO (09:24)
[2023-12-12 09:32] LABS: ALT (SGPT) 65 U/L (0-35); AST (SGOT) 27 U/L (14-36); Albumin 3.8 g/dl (3.5-5.0); Alkaline Phosphatase 42 U/L (38-126); Blood Urea Nitrogen 11 mg/dl (7-17); Calcium 9.4 mg/dl (8.4-10.2); Carbon Dioxide 25 mmol/L (22-30); Chloride 104 mmol/L (98-107); Estimated Creatinine Clearance 117 ml/min; Glucose 86 mg/dl (70-99); Potassium 3.4 mmol/L (3.5-5.1); Sodium 138 mmol/L (135-145); Total Bilirubin 0.5 mg/dl (0.2-1.3); eGFR > 60.00
[2023-12-12] MEDS: ALOXI 5 MG IV (10:44)
[2023-12-12] MEDS: PEPCID 52 MG IV (10:45)
[2023-12-12] MEDS: DECADRON 52 MG IV (11:10)
[2023-12-12] MEDS: BENADRYL 50.5 MG IV (11:42)
[2023-12-12] MEDS: PARAPLATIN 268 MG IV (12:09)
[2023-12-19] MEDS: ALOXI 5 MG IV (10:54)
[2023-12-19] MEDS: PEPCID 52 MG IV (10:54)
[2023-12-19 10:57] VITALS: BMI 27.2
[2023-12-19 11:00] VITALS: BP 115/60
[2023-12-19] MEDS: DECADRON 52 MG IV (11:21)
[2023-12-19] MEDS: BENADRYL 51 MG IV (11:48)
[2023-12-19] MEDS: TAXOL/PACLITAXEL 269.5 MG IV (12:10)
[2023-12-19] MEDS: PARAPLATIN 268 MG IV (13:28)
[2023-12-19 16:00] VITALS: BP 115/76
== END 2023-12-19 23:59 | disposition home or self-care (01) ==
LOC: OID 10:37
PROVIDERS: ATTENDING PHYSICIAN Internal Medicine Hematology & Oncology; FAMILY PHYSICIAN Family Medicine
DX: Z51.11 Encounter for antineoplastic chemotherapy (principal); C50.412 Malignant neoplasm of upper-outer quadrant of left female breast; D50.9 Iron deficiency anemia, unspecified; D50.8 Other iron deficiency anemias; Z17.0 Estrogen receptor positive status [ER+]
CPT/HCPCS: 80053; 85025; 96367; 96375; 96413; 96417; J2469; J9045; J9267

== ENCOUNTER → 2024-01-01 15:25 | Outpatient (REF) | payer BC, SELFPAY ==
[2024-01-01 16:31] LABS: % Basophils 0.6 % (0-2); % Lymphocytes 25.6 % (20.5-51.1); % Monocytes 1.8 % (1.7-9.3); Absolute Immature Granulocytes 0.1 10^3/uL (0-0.05); Absolute Lymphocytes 1.3 10^3/uL (1.2-3.4); Absolute Monocytes 0.1 10^3/uL (0.1-0.6); Absolute Neutrophils 3.5 10^3/uL (1.4-6.5); Hematocrit 40.5 % (37.0-47.0); Hemoglobin 13.4 g/dL (12.0-16.0); Mean Corp Hgb Conc. 33.1 g/dL (33.0-37.0); Mean Corpuscular Hgb 31.6 pg (27.0-31.0); Mean Corpuscular Volume 95.5 fL (81.0-99.0); Mean Platelet Volume 10.5 fL (7.4-10.4); Nucleated Red Blood Cells % 0 %; Platelet Count 251 10^3/uL (130-400); Red Blood Cell Count 4.24 10^6/uL (4.20-5.40); Red Cell Dist. Width 15.3 % (11.5-14.5); White Blood Cell Count 4.9 10^3/uL (4.8-10.8)
[2024-01-01 17:07] LABS: ALT (SGPT) 128 U/L (0-35); AST (SGOT) 53 U/L (14-36); Albumin 4.5 g/dl (3.5-5.0); Alkaline Phosphatase 46 U/L (38-126); Blood Urea Nitrogen 7 mg/dl (7-17); Calcium 9.9 mg/dl (8.4-10.2); Carbon Dioxide 28 mmol/L (22-30); Chloride 102 mmol/L (98-107); Glucose 104 mg/dl (70-99); Potassium 4.7 mmol/L (3.5-5.1); Sodium 136 mmol/L (135-145); Total Bilirubin 0.3 mg/dl (0.2-1.3); Total Protein 6.8 g/dl (6.3-8.2); eGFR > 60.00
== END ==
LOC: REG 15:25
PROVIDERS: ATTENDING PHYSICIAN Internal Medicine Hematology & Oncology; FAMILY PHYSICIAN Family Medicine
DX: C50.412 Malignant neoplasm of upper-outer quadrant of left female breast (principal); D50.8 Other iron deficiency anemias; E55.9 Vitamin D deficiency, unspecified; K52.9 Noninfective gastroenteritis and colitis, unspecified
CPT/HCPCS: 36415; 80053; 85025

== ENCOUNTER → 2024-01-15 15:47 | Outpatient (REF) | payer BC, SELFPAY ==
[2024-01-15 16:39] LABS: % Basophils 0.8 % (0-2); % Immature Granulocytes 1.2 % (0-0.5); % Lymphocytes 27.1 % (20.5-51.1); % Monocytes 3.5 % (1.7-9.3); % Neutrophils 67.4 % (42.2-75.2); Absolute Immature Granulocytes 0.1 10^3/uL (0-0.05); Absolute Lymphocytes 1.4 10^3/uL (1.2-3.4); Absolute Monocytes 0.2 10^3/uL (0.1-0.6); Absolute Neutrophils 3.5 10^3/uL (1.4-6.5); Hematocrit 41.3 % (37.0-47.0); Hemoglobin 13.8 g/dL (12.0-16.0); Mean Corp Hgb Conc. 33.4 g/dL (33.0-37.0); Mean Corpuscular Hgb 32.9 pg (27.0-31.0); Mean Corpuscular Volume 98.3 fL (81.0-99.0); Mean Platelet Volume 10.5 fL (7.4-10.4); Nucleated Red Blood Cells % 0 %; Platelet Count 270 10^3/uL (130-400); Red Cell Dist. Width 14.8 % (11.5-14.5); White Blood Cell Count 5.2 10^3/uL (4.8-10.8)
[2024-01-15 16:53] LABS: ALT (SGPT) 155 U/L (0-35); AST (SGOT) 51 U/L (14-36); Albumin 4.8 g/dl (3.5-5.0); Alkaline Phosphatase 47 U/L (38-126); Blood Urea Nitrogen 6 mg/dl (7-17); Carbon Dioxide 32 mmol/L (22-30); Chloride 100 mmol/L (98-107); Glucose 114 mg/dl (70-99); Potassium 4.8 mmol/L (3.5-5.1); Sodium 141 mmol/L (135-145); Total Bilirubin 0.3 mg/dl (0.2-1.3); Total Protein 7.1 g/dl (6.3-8.2); eGFR > 60.00
[2024-01-15 17:05] LABS: Urine Albumin Negative (Neg - Trace); Urine Bilirubin Negative (Negative); Urine Character Clear (Clear); Urine Color Yellow; Urine Glucose Negative (Negative); Urine Ketone Negative (Negative); Urine Leukocyte Negative (Negative); Urine Nitrite Negative (Negative); Urine Occult Blood Negative (Negative); Urine Specific Gravity 1.005 (<1.030); Urine Urobilinogen Negative (Neg - 1+); Urine pH 6.5 (5.0-9.0)
== END ==
LOC: REG 15:47
PROVIDERS: ATTENDING PHYSICIAN Internal Medicine Hematology & Oncology; FAMILY PHYSICIAN Family Medicine; OTHER PHYSICIAN Nurse Practitioner Adult Health
DX: C50.412 Malignant neoplasm of upper-outer quadrant of left female breast (principal); D50.8 Other iron deficiency anemias; E55.9 Vitamin D deficiency, unspecified; K52.9 Noninfective gastroenteritis and colitis, unspecified
CPT/HCPCS: 36415; 80053; 81003; 85025; 87086

== ENCOUNTER 2024-01-16 07:55 | Outpatient (RCR) | payer BC, SELFPAY ==
[2023-12-26 08:27] VITALS: BP 119/64
[2023-12-26 08:39] LABS: AST (SGOT) 34 U/L (14-36); Albumin 3.7 g/dl (3.5-5.0); Alkaline Phosphatase 44 U/L (38-126); Blood Urea Nitrogen 7 mg/dl (7-17); Calcium 9.8 mg/dl (8.4-10.2); Carbon Dioxide 26 mmol/L (22-30); Chloride 102 mmol/L (98-107); Glucose 97 mg/dl (70-99); Potassium 3.4 mmol/L (3.5-5.1); Sodium 136 mmol/L (135-145); Total Bilirubin 0.4 mg/dl (0.2-1.3); Total Protein 5.8 g/dl (6.3-8.2); eGFR > 60.00
[2023-12-26 08:46] LABS: Hematocrit 37.2 % (37.0-47.0); Hemoglobin 12.4 g/dL (12.0-16.0); Mean Corp Hgb Conc. 33.3 g/dL (33.0-37.0); Mean Corpuscular Hgb 32.5 pg (27.0-31.0); Mean Corpuscular Volume 97.4 fL (81.0-99.0); Mean Platelet Volume 10.6 fL (7.4-10.4); Platelet Count 176 10^3/uL (130-400); Red Blood Cell Count 3.82 10^6/uL (4.20-5.40); Red Cell Dist. Width 15.8 % (11.5-14.5); White Blood Cell Count 7.3 10^3/uL (4.8-10.8)
[2023-12-26 09:11] LABS: ALT (SGPT) 65 U/L (0-35)
[2023-12-26 09:42] LABS: Free T3 3.42 pg/ml (2.77-5.27)
[2023-12-26 09:56] LABS: TSH Reflex To Free T4 1.12 uIU/ml (0.47-4.68)
[2023-12-26 10:08] LABS: % Basophils 0.5 % (0-2); % Eosinophils 0.5 % (0-6); % Immature Granulocytes 0.4 % (0-0.5); % Lymphocytes 54.3 % (20.5-51.1); % Monocytes 4.8 % (1.7-9.3); % Neutrophils 39.5 % (42.2-75.2); Absolute Monocytes 0.4 10^3/uL (0.1-0.6); Absolute Neutrophils 2.9 10^3/uL (1.4-6.5); Nucleated Red Blood Cells % 0 %
[2023-12-26] MEDS: PEPCID 52 MG IV (10:21)
[2023-12-26] MEDS: DECADRON 52 MG IV (10:50)
[2023-12-26] MEDS: ALOXI 5 MG IV (11:14)
[2023-12-26] MEDS: BENADRYL 51 MG IV (11:14)
[2023-12-26] MEDS: TAXOL/PACLITAXEL 269.5 MG IV (11:52)
[2023-12-26] MEDS: PARAPLATIN 268 MG IV (13:07)
[2023-12-26 15:42] VITALS: BP 119/70
[2024-01-02 08:55] VITALS: BP 118/78
[2024-01-02] MEDS: PEPCID 52 MG IV (10:11)
[2024-01-02] MEDS: ALOXI 5 MG IV (10:11)
[2024-01-02] MEDS: DECADRON 52 MG IV (10:40)
[2024-01-02] MEDS: BENADRYL 51 MG IV (11:04)
[2024-01-02] MEDS: TAXOL/PACLITAXEL 269.5 MG IV (11:38)
[2024-01-02] MEDS: PARAPLATIN 268 MG IV (12:52)
[2024-01-02 15:09] VITALS: BP 111/65
[2024-01-09 08:07] VITALS: BP 118/64
[2024-01-09 08:25] LABS: % Basophils 0.3 % (0-2); % Eosinophils 0.2 % (0-6); % Immature Granulocytes 0.3 % (0-0.5); % Lymphocytes 56.7 % (20.5-51.1); % Monocytes 5.1 % (1.7-9.3); % Neutrophils 37.4 % (42.2-75.2); Absolute Lymphocytes 3.3 10^3/uL (1.2-3.4); Absolute Monocytes 0.3 10^3/uL (0.1-0.6); Absolute Neutrophils 2.2 10^3/uL (1.4-6.5); Hemoglobin 12.8 g/dL (12.0-16.0); Mean Corp Hgb Conc. 33.7 g/dL (33.0-37.0); Mean Corpuscular Hgb 33.1 pg (27.0-31.0); Mean Corpuscular Volume 98.2 fL (81.0-99.0); Mean Platelet Volume 9.5 fL (7.4-10.4); Platelet Count 231 10^3/uL (130-400); Red Blood Cell Count 3.87 10^6/uL (4.20-5.40); Red Cell Dist. Width 15.2 % (11.5-14.5); White Blood Cell Count 5.9 10^3/uL (4.8-10.8)
[2024-01-09 09:28] LABS: ALT (SGPT) 170 U/L (0-35); AST (SGOT) 110 U/L (14-36); Alkaline Phosphatase 48 U/L (38-126); Blood Urea Nitrogen 8 mg/dl (7-17); Calcium 10.1 mg/dl (8.4-10.2); Carbon Dioxide 30 mmol/L (22-30); Chloride 102 mmol/L (98-107); Glucose 96 mg/dl (70-99); Potassium 4.2 mmol/L (3.5-5.1); Sodium 136 mmol/L (135-145); Total Bilirubin 0.4 mg/dl (0.2-1.3); eGFR > 60.00
[2024-01-09] MEDS: ALOXI 5 MG IV (10:51)
[2024-01-09] MEDS: PEPCID 52 MG IV (10:52)
[2024-01-09] MEDS: DECADRON 52 MG IV (11:22)
[2024-01-09] MEDS: BENADRYL 51 MG IV (11:46)
[2024-01-09] MEDS: TAXOL/PACLITAXEL 269.5 MG IV (12:15)
[2024-01-09 13:00] VITALS: BP 110/73
[2024-01-09] MEDS: PARAPLATIN 268.5 MG IV (13:22)
[2024-01-09 15:45] VITALS: BP 115/71
[2024-01-16 08:24] VITALS: BP 114/70
[2024-01-16] MEDS: PEPCID 52 MG IV (10:06)
[2024-01-16] MEDS: ALOXI 5 MG IV (10:31)
[2024-01-16] MEDS: DECADRON 52 MG IV (10:32)
[2024-01-16] MEDS: BENADRYL 51 MG IV (10:59)
[2024-01-16] MEDS: TAXOL/PACLITAXEL 269.5 MG IV (11:30)
[2024-01-16] MEDS: PARAPLATIN 268 MG IV (12:36)
[2024-01-16 15:02] VITALS: BP 115/74
== END 2024-01-17 09:38 | disposition home or self-care (01) ==
LOC: OID 07:55
PROVIDERS: Internal Medicine Hematology & Oncology; ATTENDING PHYSICIAN Internal Medicine Hematology & Oncology; FAMILY PHYSICIAN Family Medicine
DX: Z51.11 Encounter for antineoplastic chemotherapy (principal); C50.412 Malignant neoplasm of upper-outer quadrant of left female breast; D50.9 Iron deficiency anemia, unspecified; D50.8 Other iron deficiency anemias; Z17.0 Estrogen receptor positive status [ER+]
CPT/HCPCS: 80053; 84443; 84481; 85025; 96367; 96375; 96413; 96415; 96417; J2469; J9045; J9267

== ENCOUNTER 2024-02-14 14:25 | Outpatient (RCR) | payer BC, SELFPAY ==
[2024-01-23 08:05] VITALS: BP 122/73
[2024-01-23 08:28] LABS: % Basophils 0.4 % (0-2); % Eosinophils 0.2 % (0-6); % Immature Granulocytes 0.2 % (0-0.5); % Lymphocytes 63.9 % (20.5-51.1); % Monocytes 7.6 % (1.7-9.3); % Neutrophils 27.7 % (42.2-75.2); Absolute Monocytes 0.4 10^3/uL (0.1-0.6); Absolute Neutrophils 1.3 10^3/uL (1.4-6.5); Hemoglobin 12.7 g/dL (12.0-16.0); Mean Corp Hgb Conc. 34.3 g/dL (33.0-37.0); Mean Corpuscular Hgb 33.6 pg (27.0-31.0); Mean Corpuscular Volume 97.9 fL (81.0-99.0); Mean Platelet Volume 10.1 fL (7.4-10.4); Platelet Count 238 10^3/uL (130-400); Red Blood Cell Count 3.78 10^6/uL (4.20-5.40); Red Cell Dist. Width 14.5 % (11.5-14.5); White Blood Cell Count 4.7 10^3/uL (4.8-10.8)
[2024-01-23 08:51] LABS: ALT (SGPT) 196 U/L (0-35); AST (SGOT) 93 U/L (14-36); Albumin 4.2 g/dl (3.5-5.0); Alkaline Phosphatase 51 U/L (38-126); Blood Urea Nitrogen 6 mg/dl (7-17); Calcium 9.9 mg/dl (8.4-10.2); Chloride 101 mmol/L (98-107); Glucose 92 mg/dl (70-99); Sodium 140 mmol/L (135-145); Total Bilirubin 0.5 mg/dl (0.2-1.3); Total Protein 6.4 g/dl (6.3-8.2); eGFR > 60.00
[2024-01-23 09:02] LABS: Carbon Dioxide 31 mmol/L (22-30)
[2024-01-23] MEDS: ALOXI 5 MG IV (10:58)
[2024-01-23] MEDS: PEPCID 52 MG IV (10:58)
[2024-01-23] MEDS: DECADRON 52 MG IV (11:24)
[2024-01-23] MEDS: BENADRYL 51 MG IV (11:51)
[2024-01-23] MEDS: TAXOL/PACLITAXEL 269.5 MG IV (12:23)
[2024-01-23] MEDS: PARAPLATIN 268.5 MG IV (13:32)
[2024-01-23 15:30] VITALS: BP 117/70
[2024-02-06 15:25] VITALS: BP 110/69
[2024-02-06 16:25] LABS: Hematocrit 33.9 % (37.0-47.0); Hemoglobin 11.5 g/dL (12.0-16.0); Mean Corp Hgb Conc. 33.9 g/dL (33.0-37.0); Mean Corpuscular Hgb 32.6 pg (27.0-31.0); Mean Platelet Volume 11.1 fL (7.4-10.4); Platelet Count 155 10^3/uL (130-400); Red Blood Cell Count 3.53 10^6/uL (4.20-5.40); Red Cell Dist. Width 14.5 % (11.5-14.5); White Blood Cell Count 3.6 10^3/uL (4.8-10.8)
[2024-02-06 16:57] LABS: % Basophils 0.6 % (0-2); % Eosinophils 0.6 % (0-6); % Immature Granulocytes 0.3 % (0-0.5); % Lymphocytes 58.5 % (20.5-51.1); % Monocytes 12.9 % (1.7-9.3); % Neutrophils 27.1 % (42.2-75.2); Absolute Lymphocytes 2.1 10^3/uL (1.2-3.4); Absolute Monocytes 0.5 10^3/uL (0.1-0.6); Nucleated Red Blood Cells % 0 %
[2024-02-06 17:59] LABS: ALT (SGPT) 199 U/L (0-35); AST (SGOT) 92 U/L (14-36); Albumin 3.9 g/dl (3.5-5.0); Alkaline Phosphatase 57 U/L (38-126); Blood Urea Nitrogen 3 mg/dl (7-17); Calcium 9.1 mg/dl (8.4-10.2); Carbon Dioxide 25 mmol/L (22-30); Chloride 103 mmol/L (98-107); Glucose 88 mg/dl (70-99); Potassium 3.9 mmol/L (3.5-5.1); Sodium 142 mmol/L (135-145); Total Bilirubin 0.3 mg/dl (0.2-1.3); eGFR > 60.00
[2024-02-13 09:03] LABS: % Basophils 0.5 % (0-2); % Eosinophils 0.5 % (0-6); % Immature Granulocytes 0.3 % (0-0.5); % Lymphocytes 43.8 % (20.5-51.1); % Monocytes 11.5 % (1.7-9.3); % Neutrophils 43.4 % (42.2-75.2); Absolute Lymphocytes 1.7 10^3/uL (1.2-3.4); Absolute Monocytes 0.4 10^3/uL (0.1-0.6); Absolute Neutrophils 1.7 10^3/uL (1.4-6.5); Hematocrit 34.3 % (37.0-47.0); Hemoglobin 11.5 g/dL (12.0-16.0); Mean Corp Hgb Conc. 33.5 g/dL (33.0-37.0); Mean Corpuscular Hgb 32.9 pg (27.0-31.0); Mean Platelet Volume 10.5 fL (7.4-10.4); Platelet Count 184 10^3/uL (130-400); Red Cell Dist. Width 13.4 % (11.5-14.5); White Blood Cell Count 3.8 10^3/uL (4.8-10.8)
[2024-02-13 09:11] VITALS: BP 105/66
[2024-02-13 09:59] LABS: ALT (SGPT) 109 U/L (0-35); AST (SGOT) 55 U/L (14-36); Alkaline Phosphatase 51 U/L (38-126); Blood Urea Nitrogen 7 mg/dl (7-17); Calcium 9.6 mg/dl (8.4-10.2); Carbon Dioxide 27 mmol/L (22-30); Chloride 104 mmol/L (98-107); Glucose 84 mg/dl (70-99); Potassium 4.5 mmol/L (3.5-5.1); Sodium 141 mmol/L (135-145); Total Bilirubin 0.4 mg/dl (0.2-1.3); Total Protein 6.2 g/dl (6.3-8.2); eGFR > 60.00
[2024-02-13] MEDS: EMEND 150 MG IV (10:44)
[2024-02-13] MEDS: ALOXI 5 MG IV (11:27)
[2024-02-13] MEDS: DECADRON 51 MG IV (11:28)
[2024-02-13] MEDS: ADRIAMYCIN 50 MG IV (12:07)
[2024-02-13] MEDS: CYCLOPHOSPHAMIDE 255.07 MG IV (12:26)
[2024-02-14 14:40] VITALS: BP 117/65
[2024-02-14] MEDS: FULPHILA 6 MG SC (14:48)
== END 2024-02-15 10:20 | disposition home or self-care (01) ==
LOC: OID 14:25
PROVIDERS: Internal Medicine Hematology & Oncology; ATTENDING PHYSICIAN Internal Medicine Hematology & Oncology; FAMILY PHYSICIAN Family Medicine
DX: Z51.11 Encounter for antineoplastic chemotherapy (principal); C50.412 Malignant neoplasm of upper-outer quadrant of left female breast; D50.9 Iron deficiency anemia, unspecified; D50.8 Other iron deficiency anemias; Z17.0 Estrogen receptor positive status [ER+]
CPT/HCPCS: 36591; 80053; 85025; 96367; 96372; 96375; 96411; 96413; 96417; J1453; J2469; J9045; J9073; J9267; Q5108

== ENCOUNTER 2024-03-20 14:42 | Outpatient (RCR) | payer BC, SELFPAY ==
[2024-02-20 08:44] VITALS: BP 105/61
[2024-02-20] MEDS: NSS 1000 IV (09:04)
[2024-02-20 10:58] LABS: % Basophils 2.5 % (0-2); % Eosinophils 1.2 % (0-6); % Immature Granulocytes 1.2 % (0-0.5); % Monocytes 6.2 % (1.7-9.3); % Neutrophils 24.9 % (42.2-75.2); Absolute Monocytes 0.1 10^3/uL (0.1-0.6); Absolute Neutrophils 0.4 10^3/uL (1.4-6.5); Hematocrit 31.3 % (37.0-47.0); Hemoglobin 10.9 g/dL (12.0-16.0); Mean Corp Hgb Conc. 34.8 g/dL (33.0-37.0); Mean Corpuscular Hgb 34.3 pg (27.0-31.0); Mean Corpuscular Volume 98.4 fL (81.0-99.0); Mean Platelet Volume 11.8 fL (7.4-10.4); Nucleated Red Blood Cells % 0 %; Platelet Count 99 10^3/uL (130-400); Red Blood Cell Count 3.18 10^6/uL (4.20-5.40); Red Cell Dist. Width 12.8 % (11.5-14.5); White Blood Cell Count 1.6 10^3/uL (4.8-10.8)
[2024-02-20 11:02] LABS: ALT (SGPT) 33 U/L (0-35); AST (SGOT) 21 U/L (14-36); Alkaline Phosphatase 54 U/L (38-126); Blood Urea Nitrogen 10 mg/dl (7-17); Calcium 9.3 mg/dl (8.4-10.2); Carbon Dioxide 31 mmol/L (22-30); Chloride 100 mmol/L (98-107); Glucose 134 mg/dl (70-99); Potassium 4.1 mmol/L (3.5-5.1); Sodium 142 mmol/L (135-145); Total Bilirubin 0.6 mg/dl (0.2-1.3); Total Protein 6.3 g/dl (6.3-8.2); eGFR > 60.00
[2024-02-27 08:44] VITALS: BP 109/59
[2024-02-27 08:57] LABS: % Basophils 0.3 % (0-2); % Eosinophils 0.5 % (0-6); % Immature Granulocytes 1.7 % (0-0.5); % Monocytes 9.2 % (1.7-9.3); % Neutrophils 63.3 % (42.2-75.2); Absolute Immature Granulocytes 0.1 10^3/uL (0-0.05); Absolute Lymphocytes 1.4 10^3/uL (1.2-3.4); Absolute Monocytes 0.5 10^3/uL (0.1-0.6); Absolute Neutrophils 3.6 10^3/uL (1.4-6.5); Hematocrit 31.8 % (37.0-47.0); Hemoglobin 10.7 g/dL (12.0-16.0); Mean Corp Hgb Conc. 33.6 g/dL (33.0-37.0); Mean Corpuscular Hgb 34.2 pg (27.0-31.0); Mean Corpuscular Volume 101.6 fL (81.0-99.0); Mean Platelet Volume 11.2 fL (7.4-10.4); Platelet Count 161 10^3/uL (130-400); Red Blood Cell Count 3.13 10^6/uL (4.20-5.40); White Blood Cell Count 5.7 10^3/uL (4.8-10.8)
[2024-02-27 09:29] LABS: ALT (SGPT) 22 U/L (0-35); AST (SGOT) 21 U/L (14-36); Albumin 3.8 g/dl (3.5-5.0); Alkaline Phosphatase 63 U/L (38-126); Blood Urea Nitrogen 8 mg/dl (7-17); Calcium 9.3 mg/dl (8.4-10.2); Carbon Dioxide 29 mmol/L (22-30); Chloride 102 mmol/L (98-107); Glucose 98 mg/dl (70-99); Sodium 141 mmol/L (135-145); Total Bilirubin 0.1 mg/dl (0.2-1.3); Total Protein 5.9 g/dl (6.3-8.2); eGFR > 60.00
[2024-02-27 10:14] LABS: TSH Reflex To Free T4 0.66 uIU/ml (0.47-4.68)
[2024-02-27] MEDS: KEYTRUDA 108 MG IV (10:26)
[2024-02-27] MEDS: EMEND 150 MG IV (11:32)
[2024-02-27] MEDS: ALOXI 5 MG IV (11:32)
[2024-02-27] MEDS: DECADRON 51 MG IV (12:10)
[2024-02-27] MEDS: ADRIAMYCIN 50 MG IV (12:34)
[2024-02-27] MEDS: CYCLOPHOSPHAMIDE 255.1 MG IV (12:35)
[2024-02-28 14:50] VITALS: BP 100/62
[2024-02-28 14:59] VITALS: BP 100/62
[2024-02-28] MEDS: FULPHILA 6 MG SC (15:04)
[2024-03-05 08:51] VITALS: BP 104/55
[2024-03-05] MEDS: NSS 1000 IV (09:07)
[2024-03-05 09:10] LABS: % Basophils 1.3 % (0-2); % Immature Granulocytes 1.8 % (0-0.5); % Lymphocytes 29.9 % (20.5-51.1); % Monocytes 5.4 % (1.7-9.3); % Neutrophils 61.6 % (42.2-75.2); Absolute Lymphocytes 0.7 10^3/uL (1.2-3.4); Absolute Monocytes 0.1 10^3/uL (0.1-0.6); Absolute Neutrophils 1.4 10^3/uL (1.4-6.5); Hematocrit 32.2 % (37.0-47.0); Hemoglobin 10.9 g/dL (12.0-16.0); Mean Corp Hgb Conc. 33.9 g/dL (33.0-37.0); Mean Corpuscular Hgb 33.5 pg (27.0-31.0); Mean Corpuscular Volume 99.1 fL (81.0-99.0); Mean Platelet Volume 10.6 fL (7.4-10.4); Platelet Count 265 10^3/uL (130-400); Red Blood Cell Count 3.25 10^6/uL (4.20-5.40); Red Cell Dist. Width 13.4 % (11.5-14.5)
[2024-03-05 09:11] LABS: White Blood Cell Count 2.2 10^3/uL (4.8-10.8)
[2024-03-05 15:03] LABS: ALT (SGPT) 20 U/L (0-35); AST (SGOT) 21 U/L (14-36); Albumin 4.3 g/dl (3.5-5.0); Alkaline Phosphatase 86 U/L (38-126); Blood Urea Nitrogen 13 mg/dl (7-17); Calcium 9.4 mg/dl (8.4-10.2); Carbon Dioxide 28 mmol/L (22-30); Chloride 100 mmol/L (98-107); Glucose 101 mg/dl (70-99); Sodium 139 mmol/L (135-145); Total Bilirubin 0.3 mg/dl (0.2-1.3); Total Protein 6.4 g/dl (6.3-8.2); eGFR > 60.00
[2024-03-12 14:45] LABS: % Basophils 0.5 % (0-2); % Eosinophils 0.1 % (0-6); % Lymphocytes 21.6 % (20.5-51.1); % Monocytes 10.1 % (1.7-9.3); % Neutrophils 66.7 % (42.2-75.2); Absolute Immature Granulocytes 0.1 10^3/uL (0-0.05); Absolute Lymphocytes 1.9 10^3/uL (1.2-3.4); Absolute Monocytes 0.9 10^3/uL (0.1-0.6); Absolute Neutrophils 5.9 10^3/uL (1.4-6.5); Hematocrit 38.3 % (37.0-47.0); Hemoglobin 12.9 g/dL (12.0-16.0); Mean Corp Hgb Conc. 33.7 g/dL (33.0-37.0); Mean Corpuscular Hgb 33.7 pg (27.0-31.0); Mean Platelet Volume 10.7 fL (7.4-10.4); Platelet Count 225 10^3/uL (130-400); Red Blood Cell Count 3.83 10^6/uL (4.20-5.40); Red Cell Dist. Width 15.2 % (11.5-14.5); White Blood Cell Count 8.9 10^3/uL (4.8-10.8)
[2024-03-12 16:14] LABS: ALT (SGPT) 26 U/L (0-35); AST (SGOT) 29 U/L (14-36); Albumin 4.7 g/dl (3.5-5.0); Alkaline Phosphatase 63 U/L (38-126); Blood Urea Nitrogen 11 mg/dl (7-17); Calcium 9.9 mg/dl (8.4-10.2); Carbon Dioxide 30 mmol/L (22-30); Chloride 100 mmol/L (98-107); Glucose 88 mg/dl (70-99); Potassium 3.9 mmol/L (3.5-5.1); Sodium 141 mmol/L (135-145); Total Bilirubin 0.2 mg/dl (0.2-1.3); eGFR > 60.00
[2024-03-14 22:39] LABS: CA 15-3 Breast Antigens 76 U/mL (0-31)
[2024-03-15 00:12] LABS: CA 27-29 89.1 U/mL (<=39.0)
[2024-03-19 08:46] VITALS: BP 96/54
[2024-03-19 09:05] LABS: % Basophils 1.1 % (0-2); % Eosinophils 0.2 % (0-6); % Immature Granulocytes 0.2 % (0-0.5); % Lymphocytes 23.1 % (20.5-51.1); % Monocytes 11.7 % (1.7-9.3); % Neutrophils 63.7 % (42.2-75.2); Absolute Basophils 0.1 10^3/uL (0-0.2); Absolute Monocytes 0.5 10^3/uL (0.1-0.6); Absolute Neutrophils 2.8 10^3/uL (1.4-6.5); Hematocrit 32.4 % (37.0-47.0); Hemoglobin 10.8 g/dL (12.0-16.0); Mean Corp Hgb Conc. 33.3 g/dL (33.0-37.0); Mean Corpuscular Hgb 33.4 pg (27.0-31.0); Mean Corpuscular Volume 100.3 fL (81.0-99.0); Mean Platelet Volume 10.8 fL (7.4-10.4); Platelet Count 229 10^3/uL (130-400); Red Blood Cell Count 3.23 10^6/uL (4.20-5.40); Red Cell Dist. Width 14.8 % (11.5-14.5); White Blood Cell Count 4.5 10^3/uL (4.8-10.8)
[2024-03-19 09:44] LABS: ALT (SGPT) 50 U/L (0-35); AST (SGOT) 45 U/L (14-36); Albumin 4.1 g/dl (3.5-5.0); Alkaline Phosphatase 40 U/L (38-126); Blood Urea Nitrogen 11 mg/dl (7-17); Calcium 9.5 mg/dl (8.4-10.2); Carbon Dioxide 29 mmol/L (22-30); Chloride 100 mmol/L (98-107); Glucose 116 mg/dl (70-99); Sodium 141 mmol/L (135-145); Total Bilirubin 0.2 mg/dl (0.2-1.3); Total Protein 6.3 g/dl (6.3-8.2); eGFR > 60.00
[2024-03-19] MEDS: KEYTRUDA 108 MG IV (09:50)
[2024-03-19 10:14] LABS: TSH Reflex To Free T4 1.36 uIU/ml (0.47-4.68)
[2024-03-19] MEDS: EMEND 150 MG IV (10:54)
[2024-03-19] MEDS: DECADRON 51 MG IV (11:29)
[2024-03-19] MEDS: ALOXI 5 MG IV (11:29)
[2024-03-19] MEDS: CYCLOPHOSPHAMIDE 255.1 MG IV (12:03)
[2024-03-19] MEDS: ADRIAMYCIN 50 MG IV (12:03)
[2024-03-19 14:40] VITALS: BP 103/67
[2024-03-20 14:45] VITALS: BP 110/61
[2024-03-20] MEDS: FULPHILA 6 MG SC (14:56)
== END 2024-03-20 23:59 | disposition home or self-care (01) ==
LOC: OID 14:42
PROVIDERS: ATTENDING PHYSICIAN Internal Medicine Hematology & Oncology; FAMILY PHYSICIAN Family Medicine
DX: C50.412 Malignant neoplasm of upper-outer quadrant of left female breast (principal); D50.9 Iron deficiency anemia, unspecified; D50.8 Other iron deficiency anemias; Z51.11 Encounter for antineoplastic chemotherapy; Z17.0 Estrogen receptor positive status [ER+]
CPT/HCPCS: 36415; 80053; 84443; 85025; 86300; 96360; 96361; 96367; 96372; 96375; 96411; 96413; 96417; J1453; J2469; J9073; J9271; Q5108

== ENCOUNTER 2024-04-10 14:12 | Outpatient (RCR) | payer BC, SELFPAY ==
[2024-03-26 09:21] VITALS: BP 97/65
[2024-03-26 09:21] LABS: % Eosinophils 1.7 % (0-6); % Immature Granulocytes 3.1 % (0-0.5); % Lymphocytes 22.4 % (20.5-51.1); % Monocytes 5.8 % (1.7-9.3); Absolute Eosinophils 0.1 10^3/uL (0-0.7); Absolute Immature Granulocytes 0.1 10^3/uL (0-0.05); Absolute Lymphocytes 0.7 10^3/uL (1.2-3.4); Absolute Monocytes 0.2 10^3/uL (0.1-0.6); Hematocrit 30.1 % (37.0-47.0); Hemoglobin 10.3 g/dL (12.0-16.0); Mean Corp Hgb Conc. 34.2 g/dL (33.0-37.0); Mean Corpuscular Hgb 33.9 pg (27.0-31.0); Mean Platelet Volume 11.3 fL (7.4-10.4); Platelet Count 200 10^3/uL (130-400); Red Blood Cell Count 3.04 10^6/uL (4.20-5.40); Red Cell Dist. Width 13.5 % (11.5-14.5)
[2024-03-26] MEDS: NSS 1000 IV (09:25)
[2024-03-26 10:52] LABS: Glycohemoglobin (HgbA1c) 4.7 % (4.0-5.6)
[2024-03-26] MEDS: CATHFLO/ACTIVASE 2 MG IV (11:07)
[2024-03-26 11:38] LABS: ALT (SGPT) 32 U/L (0-35); AST (SGOT) 26 U/L (14-36); Albumin 4.1 g/dl (3.5-5.0); Alkaline Phosphatase 76 U/L (38-126); Blood Urea Nitrogen 12 mg/dl (7-17); Calcium 9.3 mg/dl (8.4-10.2); Carbon Dioxide 26 mmol/L (22-30); Chloride 101 mmol/L (98-107); Glucose 92 mg/dl (70-99); Potassium 4.3 mmol/L (3.5-5.1); Sodium 139 mmol/L (135-145); Total Bilirubin 0.4 mg/dl (0.2-1.3); Total Protein 6.3 g/dl (6.3-8.2); eGFR > 60.00
[2024-03-26 11:56] LABS: Free T3 4.21 pg/ml (2.77-5.27); Free T4 1.18 ng/dl (0.78-2.19)
[2024-03-26 11:58] LABS: HDL Cholesterol 51 mg/dl; LDL Cholesterol, Calculated 112 mg/dl; Total Cholesterol 174 mg/dl (50-199); Triglyceride 58 mg/dl (10-149); Very Low Density Lipoprotein 11 mg/dl (0-30)
[2024-04-02 08:52] VITALS: BP 99/76
[2024-04-02] MEDS: NSS 1000 IV (09:03)
[2024-04-02] MEDS: CATHFLO/ACTIVASE 2 MG IV (10:04)
[2024-04-02 10:41] LABS: % Basophils 0.9 % (0-2); % Eosinophils 2.9 % (0-6); % Immature Granulocytes 0.7 % (0-0.5); % Lymphocytes 22.8 % (20.5-51.1); % Neutrophils 60.7 % (42.2-75.2); Absolute Basophils 0.1 10^3/uL (0-0.2); Absolute Eosinophils 0.2 10^3/uL (0-0.7); Absolute Lymphocytes 1.3 10^3/uL (1.2-3.4); Absolute Monocytes 0.7 10^3/uL (0.1-0.6); Absolute Neutrophils 3.4 10^3/uL (1.4-6.5); Hematocrit 31.2 % (37.0-47.0); Hemoglobin 10.4 g/dL (12.0-16.0); Mean Corp Hgb Conc. 33.3 g/dL (33.0-37.0); Mean Corpuscular Hgb 33.7 pg (27.0-31.0); Mean Platelet Volume 10.6 fL (7.4-10.4); Platelet Count 177 10^3/uL (130-400); Red Blood Cell Count 3.09 10^6/uL (4.20-5.40); Red Cell Dist. Width 14.6 % (11.5-14.5); White Blood Cell Count 5.6 10^3/uL (4.8-10.8)
[2024-04-02 11:46] LABS: ALT (SGPT) 27 U/L (0-35); AST (SGOT) 28 U/L (14-36); Albumin 3.8 g/dl (3.5-5.0); Alkaline Phosphatase 58 U/L (38-126); Blood Urea Nitrogen 7 mg/dl (7-17); Carbon Dioxide 27 mmol/L (22-30); Chloride 105 mmol/L (98-107); Glucose 84 mg/dl (70-99); Potassium 4.5 mmol/L (3.5-5.1); Sodium 142 mmol/L (135-145); Total Bilirubin 0.1 mg/dl (0.2-1.3); eGFR > 60.00
[2024-04-02 13:16] LABS: TSH 0.42 uIU/ml (0.47-4.68)
--- NOTE | 2024-04-02 16:34 | SURV.CONR ---
Survivorship Consultation
- -
Spoke with patient in [facility] regarding appointment with Dr. Auguste and treatment related side effects. In today feeling weak and assessed and decided to give 1L IVF. Marta with trouble getting blood return with mediport so cath michelle also ordered.
After cath michelle good blood return and no problem with mediport. Patient discussed having a second opinion with Dr. Auguste regarding surgery. Wanting lumpectomy if possible. Discussed rationale for both treatment options (lumpectomy and radiation
vs mastectomy). Discussed rationale for testing LN at time of surgery. Had reached out to get an appointment scheduled with Dr. Auguste but has not yet scheduled. Will reach out to office to discuss getting her scheduled per patient request. She
expressed concern but I did reiterate the importance of moving forward with surgery in a timely manner given her response. She does feel the keytruda is working and is thankful she has not had additional episodes of colitis since restarting. She
has my contact info and knows to call for any additional questions or concerns.
[2024-04-09 09:13] VITALS: BP 112/68
[2024-04-09 09:20] LABS: % Eosinophils 0.6 % (0-6); % Immature Granulocytes 0.2 % (0-0.5); % Lymphocytes 14.4 % (20.5-51.1); % Monocytes 10.2 % (1.7-9.3); % Neutrophils 73.6 % (42.2-75.2); Absolute Basophils 0.1 10^3/uL (0-0.2); Absolute Lymphocytes 0.9 10^3/uL (1.2-3.4); Absolute Monocytes 0.6 10^3/uL (0.1-0.6); Absolute Neutrophils 4.5 10^3/uL (1.4-6.5); Hematocrit 34.1 % (37.0-47.0); Hemoglobin 11.4 g/dL (12.0-16.0); Mean Corp Hgb Conc. 33.4 g/dL (33.0-37.0); Mean Corpuscular Hgb 33.1 pg (27.0-31.0); Mean Corpuscular Volume 99.1 fL (81.0-99.0); Mean Platelet Volume 10.4 fL (7.4-10.4); Platelet Count 303 10^3/uL (130-400); Red Blood Cell Count 3.44 10^6/uL (4.20-5.40); White Blood Cell Count 6.2 10^3/uL (4.8-10.8)
[2024-04-09 09:36] LABS: ALT (SGPT) 39 U/L (0-35); AST (SGOT) 40 U/L (14-36); Albumin 4.3 g/dl (3.5-5.0); Alkaline Phosphatase 54 U/L (38-126); Blood Urea Nitrogen 10 mg/dl (7-17); Calcium 9.7 mg/dl (8.4-10.2); Carbon Dioxide 28 mmol/L (22-30); Chloride 99 mmol/L (98-107); Glucose 97 mg/dl (70-99); Potassium 3.8 mmol/L (3.5-5.1); Sodium 141 mmol/L (135-145); Total Bilirubin 0.4 mg/dl (0.2-1.3); Total Protein 6.6 g/dl (6.3-8.2); eGFR > 60.00
[2024-04-09 10:03] LABS: TSH Reflex To Free T4 0.64 uIU/ml (0.47-4.68)
[2024-04-09] MEDS: KEYTRUDA 108 MG IV (10:53)
[2024-04-09] MEDS: NSS 500 IV (11:28)
[2024-04-09] MEDS: ALOXI 5 MG IV (11:30)
[2024-04-09] MEDS: EMEND 150 MG IV (11:30)
[2024-04-09] MEDS: DECADRON 51 MG IV (12:11)
[2024-04-09] MEDS: ADRIAMYCIN 50 MG IV (12:42)
[2024-04-09] MEDS: CYCLOPHOSPHAMIDE 255.1 MG IV (12:43)
--- NOTE | 2024-04-09 13:51 | SURV.CONR ---
Survivorship Consultation
- -
Saw patient in [facility] to discuss recent appointments and follow up. Appt with Dr. Auguste made for 04/24/2024. She is to have MRI 04/30/2024 possibly as advised to have two weeks after last treatment. Saw Dr. Newberry today. Reports continued back pain
and now with cramping and bloody stool. Per patient Dr. Newberry advised to start immodium at first sign of diarrhea and bentyl for abdominal cramping. She was encouraged today to ensure appts for all surgical providers are made and MRI that is
needed. Educated on recommendations to ensure surgery is completed in 4-6 weeks after last treatment which means appts with surgeons need to happen soon especially if plastics will be needed. She met with plastics at [facility] and is planning to meet
with Dr. Sparks at [facility]. Will be available as needed, but again educated on importance of obtaining appts marian so decision can be make and surgery scheduled. Verbalized understanding to all.
[2024-04-09 15:31] VITALS: BP 103/63
[2024-04-10 14:15] VITALS: BP 114/61
[2024-04-10] MEDS: NSS 1000 IV (14:24)
[2024-04-10] MEDS: FULPHILA 6 MG SC (14:28)
[2024-04-10 15:38] VITALS: BP 90/48
== END 2024-04-19 23:59 | disposition home or self-care (01) ==
LOC: OID 14:12
PROVIDERS: ATTENDING PHYSICIAN Internal Medicine Hematology & Oncology; OTHER PHYSICIAN Family Medicine
DX: T82.868A Thrombosis due to vascular prosthetic devices, implants and grafts, initial encounter (principal); Y93.89 Activity, other specified; Z51.11 Encounter for antineoplastic chemotherapy; C50.412 Malignant neoplasm of upper-outer quadrant of left female breast; D50.9 Iron deficiency anemia, unspecified; D50.8 Other iron deficiency anemias; Z17.0 Estrogen receptor positive status [ER+]
CPT/HCPCS: 80053; 80061; 83036; 84439; 84443; 84481; 85025; 96360; 96361; 96367; 96372; 96375; 96409; 96413; 96417; J1453; J2469; J2997; J9073; J9271; Q5108

== ENCOUNTER 2024-04-13 23:21 | Inpatient (IN) | payer BC, SELFPAY ==
[2024-04-13 19:11] VITALS: BP 128/86
[2024-04-13 19:42] VITALS: BMI 26.6
[2024-04-13] MEDS: PERCOCET 5/325 1 TABLET PO (20:35)
[2024-04-13 21:59] VITALS: BP 116/72
[2024-04-13] MEDS: DILAUDID 0.5 MG IV (22:20)
[2024-04-13] MEDS: NSS 1000 IV (22:21)
[2024-04-13] MEDS: BENADRYL PO (22:27)
[2024-04-13 22:28] LABS: Hematocrit 34.4 % (37.0-47.0); Hemoglobin 11.5 g/dL (12.0-16.0); Mean Corp Hgb Conc. 33.4 g/dL (33.0-37.0); Mean Corpuscular Hgb 33.4 pg (27.0-31.0); Mean Platelet Volume 10.6 fL (7.4-10.4); Platelet Count 242 10^3/uL (130-400); Red Blood Cell Count 3.44 10^6/uL (4.20-5.40); White Blood Cell Count 16.7 10^3/uL (4.8-10.8)
[2024-04-13 22:32] VITALS: BP 108/59
--- NOTE | 2024-04-13 22:34 | ED.GENMED ---
History of Present Illness
General
Chief Complaint: Back Pain
Source: patient
Exam Limitations: none
Time Seen by Provider: 04/13/24 19:28
Nursing documentation reviewed up to this point in time: agreed with
History of Present Illness
History of Present Illness:
Patient to ED wt complaint of severe low back pain. Recent diagnosis of breast CA. She completed her last chemo this week. Was placed on Keytruda but states she developed colitis while on this medication so it was stopped. SHe was inpatient
here with colitis in November, no further episodes until now. Keytruda was restarted approx 6 weeks ago. SHe received her 3rd dose this week, developed colitis symptoms yesterday. Reports 5 episodes of bloody diarrhea yesterday and today. Declines
CT tonight. Also states that her low back pain has become severe. Her home pain meds have not been helpful. Reports poor appetite. Denies fever/chills. Received dose of neupogen on . Denies fever/chills. +nausea, no vomiting. Brought to
ED by mother for eval.
Past History
Past History
ED Past Medical History: Cancer and Psychiatric
ED Past Surgical History:
Social History
Tobacco: Non-smoker
Alcohol: Occasional
Drug: None
Personal: Single
Living: with family
Family History
Family History: Unable to obtain
Phy Exam
General Physical Exam
General Presentation: moderate distress
General age: appears stated age
General Skin: warm and dry
General Habitus: normal
General Mental: alert
Cardiovascular Exam
Cardiovascular Exam: regular rate/rhythm and no edema
Pulmonary Exam
Pulmonary Exam: no respiratory distress and chest non tender
Gastrointestinal Exam
Gastrointestinal Exam: normal bowel sounds, soft, no organomegaly, non distended and no cva tenderness
Palpation: left upper quadrant: No tenderness, left lower quadrant: Moderate tenderness, right upper quadrant: No tenderness and right lower quadrant: No tenderness
Musculoskeletal Exam
Musculoskeletal Exam: back pain (Severe low back pain) and neuro vasc intact
Skin Exam
Skin Exam: normal color, warm/dry and no rash
Psychiatric Exam
Psychiatric Exam: normal mood/affect
Course
Orders/Labs/Results
Orders:
Orders
04/13/24 19:53
Lumbar Spine Complete, 4 View [CR Lumbar Spine Comp Min 4 Vw*] Urgent
Comment:
Reason For Exam: pain
Pelvis, 1 or 2 Views CR [CR Pelvis - 1 Or 2 Views ] Urgent
Comment:
Reason For Exam: pain
04/13/24 20:30
Oxycodone/Acetaminophen [Percocet 5/325] 1 tablet .ROUTE .STK-MED ONE
04/13/24 20:32
Oxycodone/Acetaminophen [Percocet 5/325] 1 tablet PO NOW STA
04/13/24 20:34
Diphenhydramine [Benadryl] 25 mg .ROUTE .STK-MED ONE
Diphenhydramine [Benadryl] 25 mg PO NOW STA
Oxycodone/Acetaminophen [Percocet 5/325] 1 tablet PO NOW STA
04/13/24 21:59
0.9% Sodium Chloride 1000 ml [Nss] 1,000 ml IV BOLUS
04/13/24 22:00
HYDROmorphone [Dilaudid] 0.5 mg IV NOW STA
Ondansetron Injectable [Zofran] 4 mg IV NOW STA
04/13/24 22:15
Complete Blood Count/With Diff Urgent
Comprehensive Metabolic Panel Urgent
Lipase Urgent
04/13/24 22:41
STOOL [C difficile Antigen & Toxins] Urgent
KAROLINE Source: Feces/Stool
Specimen Description:
Date Specimen was Collected: 04/13/24
Time Specimen was Collected: 22:38
Stool Culture Urgent
KAROLINE Source: Feces/Stool
Specimen Description:
Date Specimen was Collected: 04/13/24
Time Specimen was Collected: 22:38
04/13/24 23:13
Admit/Transfer Patient As Directed
Co-Sign Provider:
Level of Care: Inpatient admission
Assign to:: Medical/Surgical
Physician / Group: aaron wise
Diagnosis: colitis
Reason for Hospitalization: colitis
Expected length of stay greater than two midnights?: Yes
ELOS- Estimated Length of Stay in days: 3
I certify the patient meets the requirements for IP care: Yes
PRN Pain Medication Management As Directed
May give lesser potent ordered pain med per pt: Yes
preference::
Protocol:: Medication orders for pain may be administered in a
manner that supports deferring to patient preference
when the pt is:
- Requesting an ordered lesser potent pain medication.
Least to most potent pain medications are defined
as: acetaminophen < NSAID < tramadol < opioids
(morphine, oxycodone, hydromorphone).
- Requesting a lesser dose of the same medication IF
ORDERED.
- Requesting a less intrusive route of administration
if both routes are prescribed by the provider (PO <
IV).
04/13/24 23:14
Code Status As Directed
Resuscitation Status: Full Code
04/14/24 00:29
Acetaminophen [Tylenol] 650 mg PO Q4HPRN PRN
HYDROmorphone [Dilaudid] 1 mg IV Q3HPRN PRN
Ondansetron Injectable [Zofran] 4 mg IV Q6HPRN PRN
04/14/24 00:29
Consult Notification Routine
Specialty to Notify: Gastroenterology
Date consulting provider notified: 04/14/24
Time consulting provider notified: 07:32
Notified:: Provider
Consult Notification Routine
Specialty to Notify: Oncology
Date consulting provider notified: 04/14/24
Time consulting provider notified: 07:47
Notified:: Provider
Comment: tt'd
GASTROINTESTINAL CONSULT Routine
Consulting Provider: Olga Russell
Was physician already notified: No
Reason for consult: colitis
ONCOLOGY CONSULT Routine
Consulting Provider: Marion Newberry
Was physician already notified: No
Reason for consult: breast cancer with abdominal pain, diarrhea
Activity As Directed
Activity Level: As Tolerated
Venous Foot Pumps As Directed
Location: Bilateral feet
Vital Signs As Directed
Frequency: Per unit guidelines
DX Deep Vein Thrombosis Video Routine
04/14/24 05:49
Complete Blood Count/No Diff IN AM
04/14/24 Breakfast
Full Liquids
At Your Request: Limited Participation
Full Liquid: No Red Liquids
04/14/24 08:00
Prednisone [Deltasone] 60 mg PO DAILY
04/15/24 06:16
Complete Blood Count/No Diff IN AM
04/16/24 06:00
Complete Blood Count/No Diff IN AM
Abnormal Lab Results
04/13/24
22:15
WBC 16.7 H 10^3/uL
(4.8-10.8)
RBC 3.44 L 10^6/uL
(4.20-5.40)
Hgb 11.5 L g/dL
(12.0-16.0)
Hct 34.4 L %
(37.0-47.0)
MCV 100.0 H fL
(81.0-99.0)
MCH 33.4 H pg
(27.0-31.0)
MPV 10.6 H fL
(7.4-10.4)
Abs Immat Gran (auto) 1.9 H 10^3/uL
(0-0.05)
Absolute Neuts (auto) 14.5 H 10^3/uL
(1.4-6.5)
Absolute Lymphs (auto) 0.3 L 10^3/uL
(1.2-3.4)
Immature Gran % 11.1 H %
(0-0.5)
Neutrophils % 86.8 H %
(42.2-75.2)
Lymphocytes % 1.7 L %
(20.5-51.1)
Monocytes % 0.3 L %
(1.7-9.3)
Creatinine 0.4 L mg/dL
(0.6-1.0)
Glucose 120 H mg/dl
(70-99)
04/13/24 22:15
04/13/24 22:15
Vital Signs
Initial and Last Documented VS:
Initial Vital Signs
Temp Pulse Resp BP Pulse Ox
98.6 F 99 18 128/86 99
04/13/24 19:11 04/13/24 19:11 04/13/24 19:11 04/13/24 19:11 04/13/24 19:11
Last Documented Vital Signs
Temp Pulse Resp BP Pulse Ox
98.4 F 74 16 119/66 100
04/15/24 15:20 04/15/24 15:20 04/15/24 15:20 04/15/24 15:20 04/15/24 15:20
*Critical Care Note
Total Time (30-74mins, 75-104mins- exclusive of procedures): Not Applicable
Update Note
Update Note:
Dr. Morris notified of patient presentation and admission plan. WIll consult
ED Attending Note
-
Portions of this chart may have been created with voice recognition software.� Occasional wrong word or��sound alike� substitutions may have occurred due to the inherent limitations of voice recognition software.
Discharge Plan
Departure
Patient Disposition: Admit
Date of Disposition: 04/13/24
Time of Disposition: 22:41
Presentation/result/management discussed w/ accepting MD/DO: Hospitalist
Condition: Fair
Covid-19: Not Applicable
Discharge Problem:
Low back pain, Colitis
Interventions
Interventions:
*Risk Screen - Suicide Last Done: 04/13/24 19:16
*General Assessment Last Done: 04/13/24 19:16
*Neglect/Abuse Screening Last Done: 04/13/24 19:16
ED- Fall Risk Assessment Last Done: 04/13/24 22:52
*ED COVID-19 Vaccine History Last Done: 04/14/24 00:17
*Nursing Disposition Last Done: 04/14/24 00:25
ED-Musculoskeletal Assessment Last Done: 04/13/24 22:52
Discharge Date and Time
Discharge Date/Time: 04/14/24 00:26
[2024-04-13] MEDS: BENADRYL 25 MG PO (22:39)
[2024-04-13 22:41] LABS: AST (SGOT) 30 U/L (14-36); Albumin 4.8 g/dl (3.5-5.0); Alkaline Phosphatase 87 U/L (38-126); Blood Urea Nitrogen 11 mg/dl (7-17); Calcium 9.3 mg/dl (8.4-10.2); Carbon Dioxide 28 mmol/L (22-30); Chloride 98 mmol/L (98-107); Estimated Creatinine Clearance 116 ml/min; Glucose 120 mg/dl (70-99); Lipase 34 U/L (23-300); Potassium 4.2 mmol/L (3.5-5.1); Sodium 139 mmol/L (135-145); Total Bilirubin 0.4 mg/dl (0.2-1.3); Total Protein 7.3 g/dl (6.3-8.2); eGFR > 60.00
--- NOTE | 2024-04-13 22:46 | HPS.HSE ---
Family Physician
-
Family Physician: Dahiana Carr
Chief Complaint
-
lower back and abdominal pain
History of Present Illness
34 year old with PMH for left breast ca, thyroid ca presented to us with lower back pain as well as lower abdominal pain associated with bloody BM since last Sunday. she was taking Tylenol and Tramadol with no relief in her symptoms. her back pain
was getting worse. she was started on prednisone two days ago. patient is on Keytruda for past three weeks. her last chemo was on Sunday. she had the same symptoms on Keytruda months ago and Keytruda was stopped. she was admitted here at that
time with colitis. Reports poor appetite. Denies fever/chills. Denies fever/chills. +nausea, no vomiting. denied dysuria or hematuria. patient was started on prednisone two days ago.
patient denied CT scan. Lumbar spine and X ray of pelvis pending.
received Benadryl, Dilaudid, Zofran and oxy in Er. admitting for further management.
Medical History
Past Medical History
Past Medical History: Reports Other
Additional Past Medical History:
breast ca
thyroid cancer
Past Surgical History: Reports Other
Additional Past Surgical History:
c section
wisdom tooth extraction
Social History
Tobacco: Former Smoker
Alcohol: Former
Drug: None
Living: With Family
Family History
Family History: Not pertinent
Allergies / Home Medications
Allergies reflects when Allergies were last updated in [facility].
Home Medications with original date entered in [facility]
Allergy/Medication List:
Allergies
Allergy/AdvReac Type Severity Reaction Status Date / Time
oxycodone [From Percocet] Allergy Itching Verified 04/13/24 22:50
Home Medications
dicyclomine 20 mg tablet 20 mg PO QID PRN abdominal cramping #10 tabs 09/26/23
Lactobac no.2-Bifidobac no.1-S. thermo 112.5 billion cell capsule (Visbiome) 1 cap PO DAILY probiotic 10/01/23
cholecalciferol (vitamin D3) 25 mcg (1,000 unit) tablet (Vitamin D3) 25 mcg PO DAILY Supplement 10/01/23
vitamin B complex 1 tab PO DAILY Supplement 10/01/23
lorazepam 0.5 mg tablet (Ativan) 0.5 mg PO TID PRN nausea/cramping #30 tabs 10/10/23
tramadol 50 mg tablet 50 mg PO Q4H PRN back pain 11/14/23
acetaminophen 500 mg tablet 1,000 mg PO Q6H PRN mild pain 11/27/23
potassium chloride 20 mEq tablet,extended release 20 meq PO DAILY Supplement 11/27/23
melatonin 10 mg tablet 10 mg PO HS PRN sleep 12/12/23
Fish Oil 1 unit PO DAILY 01/02/24
Sperlena 1 unit PO DAILY 01/02/24
bajyxiqf-ravsv-mnmvwucmgd-bear 1 unit PO DAILY 01/02/24
acetylcysteine 600 mg capsule (NAC) 600 mg PO DAILY 01/16/24
prochlorperazine maleate 10 mg tablet 10 mg PO Q6H PRN NAUSEA 02/14/24
ondansetron HCl 8 mg tablet 8 mg PO Q8H PRN nausea 02/20/24
Medical Cannabis 1 applicator PO Q6H PRN pain 02/27/24
pegfilgrastim-jmdb 6 mg/0.6 mL subcutaneous syringe (Fulphila) 6 mg SC ONCE 02/28/24
Delta 8 1 tab PO BID PRN nausea 03/05/24
Magic Mouthwash 5 ml PO Q4H PRN mouth sores 03/05/24
cyclophosphamide 100 mg intravenous powder for solution 1,020 mg IV .Q3WK 03/05/24
doxorubicin 50 mg/25 mL intravenous solution 100 mg IV .Q3WK 03/05/24
loratadine 10 mg tablet (Claritin) 10 mg PO DAILY PRN fulphila 03/05/24
pembrolizumab 50 mg intravenous solution 200 mg IV Q3W 03/05/24
Review of Systems
-
Constitutional: Reports No Symptoms
EENT: Reports No Symptoms
Respiratory: Reports No Symptoms
Cardiac: Reports No Symptoms
Abdomen/GI: Reports Abdominal Pain and Diarrhea
: Reports No Symptoms
Musculoskeletal: Reports No Symptoms
Skin: Reports No Symptoms
Neurological: Reports No Symptoms
Endocrine: Reports No Symptoms
Hematologic/Lymphatic: Reports No Symptoms
Psych: Reports No Symptoms
Physical Exam
Vital Signs
Vital Signs
Temp Pulse Resp BP Pulse Ox
98.6 F 82 17 108/59 100
04/13/24 19:11 04/13/24 21:59 04/13/24 22:32 04/13/24 22:32 04/13/24 22:33
Physical Exam
General: Well Developed, Well Nourished and No Apparent Distress
HEENT: NormoCephalic, Moist mucous membranes and Atraumatic
Respiratory: Clear
Cardiac: S1/S2 and Regular Rhythm; No Murmur or Rub
GI: Soft, Non Tender, Non Distended and Normal Bowel Sounds; No Organomegaly
Rectal: Deferred by Provider
Musculoskeletal: No Clubbing, No Cyanosis and No Edema
Skin: No Rash
Neuro: AO x 3 and Nonfocal/grossly intact
Psych: Calm
Laboratory Results
-
04/13/24 22:15
04/13/24 22:15
Laboratory Results
Total Bilirubin 0.4 mg/dl (0.2-1.3) 04/13/24 22:15
AST 30 U/L (14-36) 04/13/24 22:15
Alkaline Phosphatase 87 U/L (38-126) 04/13/24 22:15
Lipase 34 U/L (23-300) 04/13/24 22:15
Data Reviewed
-
Lab Data: Labs Reviewed by me
Impression/Plan
-
# back pain/Lower abdominal cramping/bloody stools likely from colitis
-WBC 16.7
-Hemoglobin stable at 11.5
-Stool for C. difficile, stool cultures
-continue prednisone
-Dilaudid prn for pain
-Zofran prn for n/v
-full liquid diet
-lumbar spine and x ray of spine pending.
-GI consulted
Stage III triple negative breast cancer -followed by Dr. Newberry. On chemotherapy.
Thyroid cancer
oncology consulted
#DVT prophylaxis
-scd
Full code
[2024-04-13 22:50] LABS: ALT (SGPT) 34 U/L (0-35)
[2024-04-13 22:54] LABS: % Basophils 0.1 % (0-2); % Immature Granulocytes 11.1 % (0-0.5); % Lymphocytes 1.7 % (20.5-51.1); % Monocytes 0.3 % (1.7-9.3); % Neutrophils 86.8 % (42.2-75.2); Absolute Immature Granulocytes 1.9 10^3/uL (0-0.05); Absolute Lymphocytes 0.3 10^3/uL (1.2-3.4); Absolute Monocytes 0.1 10^3/uL (0.1-0.6); Absolute Neutrophils 14.5 10^3/uL (1.4-6.5); Nucleated Red Blood Cells % 0 %
--- NOTE | 2024-04-13 23:10 | W.PN.UPDATE ---
Update Note
Progress Note Update
This note serves as an addendum to the H&P by lead nurse GARCIA Sales CHRISTINA
HPI
34F BiB Mother with HX currently being treated for Breast CA and HX Colitis related to Keytruda in November 2024, seen by GI treated with IV Methylprednisone seen at ER:
- severe low back pain
- Recent diagnosis of breast CA s/p last chemo this week. Received dose of neupogen on .
- Keytruda was restarted approx 6 weeks ago. SHe received her 3rd dose this week, developed colitis symptoms yesterday. - Reports 5 episodes of bloody diarrhea yesterday and today.
- chronic low back pain has become severe. Her home pain meds have not been helpful.
- Reports poor appetite.
She declines CT tonight
ROS:
Denies fever/chills.
Denies fever/chills. +nausea, no vomiting.
PHX: see above
Vital Signs
Temp Pulse Resp BP Pulse Ox
98.6 F 82 17 108/59 100
04/13/24 19:11 04/13/24 21:59 04/13/24 22:32 04/13/24 22:32 04/13/24 22:33
PE:
Gen: Not toxic looking. curled up on Rt laterla position due to pain
HEENT:anicteric
Neck: supple
Lungs: NAD
Abnormal Lab Results
04/13/24
22:15
WBC 16.7 H
RBC 3.44 L
Hgb 11.5 L
Hct 34.4 L
MCV 100.0 H
MCH 33.4 H
MPV 10.6 H
Abs Immat Gran (auto) 1.9 H
Absolute Neuts (auto) 14.5 H
Absolute Lymphs (auto) 0.3 L
Immature Gran % 11.1 H
Neutrophils % 86.8 H
Lymphocytes % 1.7 L
Monocytes % 0.3 L
Creatinine 0.4 L
Glucose 120 H
11/29/2023 Flexible sigmoidoscopy
findings of moderate inflammation in the rectum and rectosigmoid colon with friability and easy bleeding.
No significant ulcerations were noted. Biopsies were taken and are pending as of this dictation.
Last hospitalist admission:
DATE OF ADMISSION: 11/27/2023 - DATE OF DISCHARGE: 12/01/2023
DISCHARGE DIAGNOSES:
1. Acute colitis, possibly due to chemotherapy.
2. Hyponatremia.
ASSESSMENT & PLAN
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
- associated colicky abdominal pain with hematochezia
- Declined CT AP
- stool Cx, C Diff
- IVF
- PRN narcotic analgesia
- Full liquid diet
- Hold empiric ABx
- cont. Prednisone already started by [facility] since 04/12/24
- GI consult
HX Breast CA
Holding Ketruda due to presumed recurrent Colitis
- consult Onco
Chronic low back pain flare lilely due to colitis
- IV Dilaudid PRN
- cont. all OP Meds
DVT Px: SCD
Full code
IP MS
[2024-04-14] VITALS: BP 113/68
[2024-04-14 00:42] VITALS: BP 118/71; BMI 26.0
--- NOTE | 2024-04-14 01:00 | PTCARENOTE ---
pt is aaox3, reports abdominal pain theo lower abd. given iv pain meds, zofran, and IVF- see MAR. pt reports using medical [facility] last night prior to coming in. pt completed chemo on Sunday. has sq port but does not want it access.
[2024-04-14] MEDS: DILAUDID 1 MG IV ×7 (01:02→21:36)
[2024-04-14] MEDS: NSS 1000 IV ×2 (01:45→16:23)
[2024-04-14] MEDS: ZOFRAN 4 MG IV ×2 (01:53→18:28)
--- NOTE | 2024-04-14 08:21 | CON.ONC ---
Documented by User: DON Nash 04/14/24 12:21
Impression
Impression
IIIC ER low/GA-/Her2-IDC
treatment induced colitis with bloody diarrhea started prednisone 1mg/kg 04/09
thyroid neoplasm -most recent US thyroid 03/31 right nodule 4.0x2.5x3.6 cm vs. 4.0x2.5x2.2 cm in sept with similar composition, echogenicity. -ENT specialist at [facility].
lower back
abdominal pain
leukocytosis 2/2 steroids started 04/09, pegfilgrastim 04/10
Plan
Plan
follow up C. diff, stool culture
MRI L and S spine to further evaluate back pain.
continue symptom support with pain management, antiemetics, and hydration
continue prednisone 1mg/kg daily for immune mediated colitis- PPI while on steroids
will need to consider infliximab if steroid refractory IO colitis but would hold off for now to see if IV steroids help
Pt has OP MRI breast scheduled April 2024 with OP follow up with Dr. Auguste to plan next steps in cancer treatment. May need PET restaging as well.
appreciate GI input
Patient History
History of Present Illness
34yo F presented to ER with lower back pain and abdominal pain associated with bloody bowel movements. She started with bloody bowel movements last Sunday. She had been taking Tylenol and tramadol prn for her back and abdominal pain without
relief. 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 Newberry on 04/09. Initial evaluation notable for WBC 16.7, Hgb 11.5g/dL, platelet count 242,000, nml LFTs, renal function. Xray L spine, xray
pelvis, C. diff, stool culture are pending. She is using hydromorphone prn pain and ondansetron prn nausea.
Lin is known to Dr. Newberry for management of IIIC ER low/GA-/Her2 breast cancer initially diagnosed July 2023. She is receiving neoadjuvant chemotherapy. She completed 12 doses of Carbo/Taxol 01/23/2024. She tolerated treatment well other than
some keytruda colitis. Her IO colitis did not have a great response to steroids in October and she�requires�3 doses of biological�therapy�with infliximab�5�mg/kg�IV�at�0,�2,�and�6�weeks. Due to rapid growth of her thyroid tumor her ENT specialist at
[facility] requested delayed initiation of AC to perform thyroidectomy, however, after holding chemo for only 16 days, rapid growth of her breast tumor was noted. Therefore, thyroid surgery was delayed and DDAC was started 02/13/2024 After her
1st cycle of AC, Keytruda was added back to her regimen on 02/27/2024. due to tumor growth on exam and imaging. She completed her last AC-Keytruda 04/09/2024.
Clinically, she is having 5-6 bloody BM/day. She does not feel that this bout of colitis is not as bad as last October-November when she needed biologics after colitis was refractory to steroids.
Afebrile, no hypoxia or hypotension
Past-Medical/Surgical History
Past�Medical�History Iron�deficiency�anemia Left�breast�cancer�06/2023 Thyroid�nodule�suspicious�for�cancer�07/2022 Schwannoma�acoustic�nerve�04/2022
Surgical�History�C�section�x�2
Social�History Never smoker. ETOH <1x/wk. 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 Patient�is�single�with�2�child/children.
Family�Medical�History Paternal�aunt�with�breast�cancer�in�her�50s
Patient Medication
�Medication �Instructions �Recorded �Confirmed �Last Taken �Type
dicyclomine 20 mg tablet 20 mg PO QID PRN abdominal 09/26/23 04/14/24 04/13/24 Rx
cramping #10 tabs
Lactobac no.2-Bifidobac no.1-S. 1 cap PO DAILY probiotic 10/01/23 04/14/24 04/13/24 History
thermo 112.5 billion cell capsule
(Visbiome)
cholecalciferol (vitamin D3) 25 25 mcg PO DAILY Supplement 10/01/23 04/14/24 04/13/24 History
mcg (1,000 unit) tablet (Vitamin
D3)
vitamin B complex 1 tab PO DAILY Supplement 10/01/23 04/14/24 04/10/24 History
lorazepam 0.5 mg tablet (Ativan) 0.5 mg PO TID PRN nausea/cramping 10/10/23 04/14/24 04/07/24 Rx
#30 tabs
tramadol 50 mg tablet 50 mg PO Q4H PRN back pain 11/14/23 04/14/24 04/13/24 History
acetaminophen 500 mg tablet 1,000 mg PO Q6H PRN mild pain 11/27/23 04/14/24 04/13/24 History
potassium chloride 20 mEq 20 meq PO DAILY Supplement 11/27/23 04/14/24 04/13/24 History
tablet,extended release
melatonin 10 mg tablet 10 mg PO HS PRN sleep 12/12/23 04/14/24 04/04/24 History
Fish Oil 1 unit PO DAILY 01/02/24 04/14/24 04/10/24 History
Sperlena 1 unit PO DAILY 01/02/24 04/14/24 04/10/24 History
cpygpfsz-ddlip-kuoxfnxbxa-bear 1 unit PO DAILY 01/02/24 04/14/24 04/10/24 History
prochlorperazine maleate 10 mg 10 mg PO Q6H PRN NAUSEA 02/14/24 04/14/24 04/10/24 History
tablet
ondansetron HCl 8 mg tablet 8 mg PO Q8H PRN nausea 02/20/24 04/14/24 04/13/24 History
Medical Cannabis 1 applicator PO Q6H PRN pain 02/27/24 04/14/24 04/13/24 History
pegfilgrastim-jmdb 6 mg/0.6 mL 6 mg SC ONCE 02/28/24 04/14/24 04/10/24 History
subcutaneous syringe (Fulphila)
cyclophosphamide 100 mg 1,020 mg IV .Q3WK 03/05/24 04/14/24 04/09/24 History
intravenous powder for solution
doxorubicin 50 mg/25 mL 100 mg IV .Q3WK 03/05/24 04/14/24 04/09/24 History
intravenous solution
loratadine 10 mg tablet (Claritin) 10 mg PO DAILY PRN fulphila 03/05/24 04/14/24 04/10/24 History
pembrolizumab 50 mg intravenous 200 mg IV Q3W 03/05/24 04/14/24 04/09/24 History
solution
Deltasone 60 mg PO DAILY 04/14/24 04/14/24 04/13/24 13:00 History
loperamide 2 mg capsule 2 mg PO Q4H PRN diarrhea 04/14/24 04/14/24 Unknown History
Active Medications
Generic Name Dose Route Start Last Admin
Trade Name Freq PRN Reason Stop Dose Admin
Acetaminophen 650 mg 04/14/24 00:29
Acetaminophen 325 Mg Tablet PO 05/12/24 00:28
Q4HPRN PRN
mild pain/BADILLO/temp> 100.4F
Hydromorphone HCl 1 mg 04/14/24 00:29 04/14/24 04:54
Hydromorphone 1 Mg/Ml Carpuject IV 04/28/24 00:28 1 mg
Q3HPRN PRN Administration
severe pain
Sodium Chloride 1,000 mls @ 75 mls/hr 04/14/24 01:15 04/14/24 01:45
Nss IV 1,000 mls
.[id number] HOLLAND Administration
Ondansetron HCl 4 mg 04/14/24 00:29 04/14/24 01:53
Ondansetron 4 Mg/2 Ml Vial IV 05/12/24 00:28 4 mg
Q6HPRN PRN Administration
nausea and vomiting
Prednisone 60 mg 04/14/24 13:00
Prednisone 20 Mg Tablet PO 05/12/24 12:59
DAILY HOLLAND
Sodium Chloride 0 flush 04/14/24 01:00
Sodium Chloride 0.9% (Flush) Syringe IV 05/12/24 00:59
PER PROTOCOL HOLLAND
Review of Systems
-
ROS notable for HPI, otherwise negative
Physical Exam
-
Physical�Exam Well�developed,�well�nourished�patient.�In�no�acute�distress. Atraumatic�and�normocephalic. EOMI.�Sclerae�are�anicteric. Neck�is�supple. Enlarged,�assymetrical�thyroid.�No�cervical�lymphadenopathy.
Clear�to�auscultation.�No�respiratory�distress. Regular�rate.�Regular�rhythm. Right�Breast:�No�masses�or�dimpling. Speech�is�fluent.�Normal�gait�and�station.
Labs
Lab Results
WBC 16.7 10^3/uL (4.8-10.8) H 04/13/24 22:15
RBC 3.44 10^6/uL (4.20-5.40) L 04/13/24 22:15
Hgb 11.5 g/dL (12.0-16.0) L 04/13/24 22:15
Hct 34.4 % (37.0-47.0) L 04/13/24 22:15
MCV 100.0 fL (81.0-99.0) H 04/13/24 22:15
MCH 33.4 pg (27.0-31.0) H 04/13/24 22:15
MCHC 33.4 g/dL (33.0-37.0) 04/13/24 22:15
RDW 14.0 % (11.5-14.5) 04/13/24 22:15
Plt Count 242 10^3/uL (130-400) D 04/13/24 22:15
MPV 10.6 fL (7.4-10.4) H 04/13/24 22:15
Abs Immat Gran (auto) 1.9 10^3/uL (0-0.05) H 04/13/24 22:15
Absolute Neuts (auto) 14.5 10^3/uL (1.4-6.5) H 04/13/24 22:15
Absolute Lymphs (auto) 0.3 10^3/uL (1.2-3.4) L 04/13/24 22:15
Absolute Monos (auto) 0.1 10^3/uL (0.1-0.6) 04/13/24 22:15
Absolute Eos (auto) 0.0 10^3/uL (0-0.7) 04/13/24 22:15
Absolute Basos (auto) 0.0 10^3/uL (0-0.2) 04/13/24 22:15
Immature Gran % 11.1 % (0-0.5) H 04/13/24 22:15
Neutrophils % 86.8 % (42.2-75.2) H 04/13/24 22:15
Lymphocytes % 1.7 % (20.5-51.1) L 04/13/24 22:15
Monocytes % 0.3 % (1.7-9.3) L 04/13/24 22:15
Eosinophils % 0.0 % (0-6) 04/13/24 22:15
Basophils % 0.1 % (0-2) 04/13/24 22:15
Creatinine 0.4 mg/dL (0.6-1.0) L 04/13/24 22:15
Vital Signs
Vital Signs
Temp Pulse Resp BP Pulse Ox
98.9 F 84 17 118/71 99
04/14/24 00:42 04/14/24 00:42 04/14/24 00:42 04/14/24 00:42 04/14/24 00:42

Documented by User: Bisi Schwartz MD 04/14/24 19:57
Plan
Plan
follow up C. diff, stool culture
MRI L and S spine to further evaluate back pain.
continue symptom support with pain management, antiemetics, and hydration
continue prednisone 1mg/kg daily for immune mediated colitis- PPI while on steroids
will need to consider infliximab if steroid refractory IO colitis but would hold off for now to see if IV steroids help
Pt has OP MRI breast scheduled April 2024 with OP follow up with Dr. Auguste to plan next steps in cancer treatment. May need PET restaging as well.
appreciate GI input
ATTENDING ADDENDUM
Pt seen and examined, chart reviewed, plan discussed.
Will try to avoid infliximab as her disease had previously responded well to chemo/immunotherapy but then rapidly recurred prompting addition of Keytruda to AC.
She has now completed neoadjuvant chemo.
Back and abdominal pain improved following BM but back pain not resolved. Pt not amenable to CT or other study involving radiation but amenable to MRI spine.
--- NOTE | 2024-04-14 08:49 | CON.GI ---
Addendum entered and electronically signed by Olga Francis Do, MD 04/14/24 13:10:
I personally performed a history and physical exam of the patient and discussed management with the resident. I reviewed the resident's note and agree with the documented findings and plan of care HPI/CC.
Stephanie is a 34yo W with h/o breast cancer on chemotherapy followed by Dr Newberry who presents with low back pain. She also incidentally has been having diarrhea since resuming chemotherapy which includes Keytruda. She was here in November 2023 with
flex sigm confirming immunotherapy related colitis in the past requiring even remicade infusions. She was given oral prednisone 2 days prior to admission. Denies odynophagia, dysphagia, nausea/vomiting or abd pain. Vitals stable, exam NTTP, NABS.
Labs reviewed.
Impression
- Post chemotherapy diarrhea
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
- Low back pain
- Breast cancer
- Anemia of chronic disease
- Thyroid cancer
Recommendations
- Await rest of stool studies
- Start solumedrol 40mg IV Q8H
- If she does not improve with above consider repeat flex sigm
- Case d/w oncology and given back pain agree with MRI of L spine
- Adv to low residue diet
Will follow with you
Original Note:
Consultation
-
Date/Time Consultation Requested: 04/14/24, 00:29
Date/Time Consultation Performed: 04/14/24,08:52
Requesting Provider: Mónica Junior
Performing Provider: Olga Russell
Reason for Consultation: Colitis
Medical History
Chief Complaint / HPI
Chief Complaint: Loose stools with blood-2days
History of Present Illness:
Patient is a 34-year-old female with past medical history of immunotherapy/chemotherapy managed triple negative left-sided breast cancer ,who presented to the hospital ER with complaint of 5-6 episodes of loose stools since Sunday, April 12,
2023. She has been on immunotherapy and chemotherapy since August, for her breast cancer. She is on Keytruda therapy every 3 weeks, she had her last dose on Sunday, and she was fine on and Sunday but she started
having loose stools in the Sunday evening. The stools increased in frequency on Sunday and there was blood before the bowel movement, sometimes mixed with the stool and sometimes after the stool. The bowel movements were loose to soft in
consistency and there were some bowel movements when she did not have any blood. She had shakiness and back pain but she denies any fever, dizziness, or any syncopal episodes. She lost a few pounds over the last few days due to decreased appetite
related to her chemotherapy.She is not on any kind of blood thinners, anticoagulants and she denies any recent exposure bacteria from food or traveling.
She also complained of lower back pain that was gradual in onset, moderate in intensity,felt like a pressure, associated with bowel movements and did not radiate to the legs. There was no episode of fecal or urinary incontinence. She tried to
manage the pain with Tylenol and tramadol but it did not help.
She has past history of hospitalization for similar episodes of colitis due to Keytruda twice in the past year, managed with IV methylprednisolone. She was shifted on chemotherapy but the tumor started to grow in size again so her oncologist
Coni decided to switch back to Keytruda.
She has been taking 60 mg oral prednisone on advice of Dr. Newberry from the last 2 days. She is on full liquid diet and reports decrease in appetite and sleep since she is not taking medical marijuana that help her with nausea and helps her sleep.
Past Medical History
Past Medical History: Cancer (Stage III triple negative left-sided breast cancer, thyroid cancer)
Past Surgical History: and Other ([place] tooth extraction)
Social History
Tobacco: Former Smoker (1 to 2 cigarettes occasionally in the past)
Alcohol: Occasional
Drug: None
Personal: Other (Has 2 children)
Living: With Family
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
Family History
Family History: Other (Mother adopted, father lost his parents very early in childhood but has sickle cell trait)
Allergies / Home Medications
Allergy/AdvReac Type Severity Reaction Status Date / Time
oxycodone [From Percocet] Allergy Itching Verified 04/13/24 22:50
�Medication �Instructions �Recorded
dicyclomine 20 mg tablet 20 mg PO QID PRN abdominal 09/26/23
cramping #10 tabs
Lactobac no.2-Bifidobac no.1-S. 1 cap PO DAILY probiotic 10/01/23
thermo 112.5 billion cell capsule
(Visbiome)
cholecalciferol (vitamin D3) 25 25 mcg PO DAILY Supplement 10/01/23
mcg (1,000 unit) tablet (Vitamin
D3)
vitamin B complex 1 tab PO DAILY Supplement 10/01/23
lorazepam 0.5 mg tablet (Ativan) 0.5 mg PO TID PRN nausea/cramping 10/10/23
#30 tabs
tramadol 50 mg tablet 50 mg PO Q4H PRN back pain 11/14/23
acetaminophen 500 mg tablet 1,000 mg PO Q6H PRN mild pain 11/27/23
potassium chloride 20 mEq 20 meq PO DAILY Supplement 11/27/23
tablet,extended release
melatonin 10 mg tablet 10 mg PO HS PRN sleep 12/12/23
Fish Oil 1 unit PO DAILY 01/02/24
Sperlena 1 unit PO DAILY 01/02/24
athcithf-wicov-jnuerjwyxr-bear 1 unit PO DAILY 01/02/24
prochlorperazine maleate 10 mg 10 mg PO Q6H PRN NAUSEA 02/14/24
tablet
ondansetron HCl 8 mg tablet 8 mg PO Q8H PRN nausea 02/20/24
Medical Cannabis 1 applicator PO Q6H PRN pain 02/27/24
pegfilgrastim-jmdb 6 mg/0.6 mL 6 mg SC ONCE 02/28/24
subcutaneous syringe (Fulphila)
cyclophosphamide 100 mg 1,020 mg IV .Q3WK 03/05/24
intravenous powder for solution
doxorubicin 50 mg/25 mL 100 mg IV .Q3WK 03/05/24
intravenous solution
loratadine 10 mg tablet (Claritin) 10 mg PO DAILY PRN fulphila 03/05/24
pembrolizumab 50 mg intravenous 200 mg IV Q3W 03/05/24
solution
Deltasone 60 mg PO DAILY 04/14/24
loperamide 2 mg capsule 2 mg PO Q4H PRN diarrhea 04/14/24
Review of Systems
-
All other systems: A 12 pt ROS was Negative except as stated above in HPI
Vital Signs
Temp Pulse Resp BP Pulse Ox
98.4 F 72 16 118/71 100
04/14/24 07:15 04/14/24 07:15 04/14/24 07:15 04/14/24 00:42 04/14/24 07:15
Physical Exam
Exam
General: Well Developed, Well Nourished and Comfortable
HEENT: Anicteric and Moist Mucous Membranes
Respiratory: Clear and Wheezes (No rhonchi wheezes or rales)
Cardiac: S1/S2 and Regular Rhythm
Breast: Deferred by me
GI: Soft, Non Tender and Normal Bowel Sounds
Genito-urinary: No Costovertebral Tender
Musculoskeletal: No Clubbing and No Edema
Skin: Warm and Dry
Neuro: Awake, Oriented and No Motor Deficits
Psych: Calm
Results
WBC 16.7 10^3/uL (4.8-10.8) H 04/13/24 22:15
Hgb 11.5 g/dL (12.0-16.0) L 04/13/24 22:15
Hct 34.4 % (37.0-47.0) L 04/13/24 22:15
MCV 100.0 fL (81.0-99.0) H 04/13/24 22:15
Plt Count 242 10^3/uL (130-400) D 04/13/24 22:15
Absolute Neuts (auto) 14.5 10^3/uL (1.4-6.5) H 04/13/24 22:15
Sodium 139 mmol/L (135-145) 04/13/24 22:15
Potassium 4.2 mmol/L (3.5-5.1) 04/13/24 22:15
Chloride 98 mmol/L (98-107) 04/13/24 22:15
Carbon Dioxide 28 mmol/L (22-30) 04/13/24 22:15
BUN 11 mg/dl (7-17) 04/13/24 22:15
Creatinine 0.4 mg/dL (0.6-1.0) L 04/13/24 22:15
Calcium 9.3 mg/dl (8.4-10.2) 04/13/24 22:15
Total Bilirubin 0.4 mg/dl (0.2-1.3) 04/13/24 22:15
AST 30 U/L (14-36) 04/13/24 22:15
ALT 34 U/L (0-35) 04/13/24 22:15
Alkaline Phosphatase 87 U/L (38-126) 04/13/24 22:15
Lipase 34 U/L (23-300) 04/13/24 22:15
Diagnostic Image Results:
Prior GI Procedures: Sigmoidoscopy 12/11
Impression: - Diffuse moderate inflammation was found in the
rectum, in the recto-sigmoid colon and in the sigmoid
colon secondary to colitis. Biopsied.
No significant ulcerations, but friable and easily
bleeds.
EGD:
Colonoscopy:
Assessment / Plan
-
IMPRESSION
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
prednisone. No personal or family history of IBD, microscopic colitis, ischemic colitis, IBS. Had hemorrhoids in the past.
Afebrile
Maintaining good blood pressure and pulse rate
WBC count within normal limits with increased percentage of neutrophils
Lipase normal
Albumin 4.8
Patient refused abdominal imaging due to potential radiations
ASSESSMENT/PLAN
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
Grade 2 CTCAE colitis
Today third day of oral prednisone 60 mg
Patient tolerating full liquid diet
switch to low residue diet
Continue to monitor stool for any blood
Failure to respond to oral steroids
Start Iv Solumederol 40mg 8 hourly
Follow stool studies
consider endoscopy if patient develops any systemic signs and symptoms/stool comes back positive for inflammatory markers
Temperature charting/WBC monitoring
Advance diet as tolerated
GI will continue to follow
-
-
Thank you for consultation and allowing me to participate in the patient's care. Please call the senior applications architect GI physician during the after hours with any questions or concerns.
[2024-04-14 09:05] LABS: Hematocrit 28.8 % (37.0-47.0); Hemoglobin 9.5 g/dL (12.0-16.0); Mean Corpuscular Hgb 33.7 pg (27.0-31.0); Mean Corpuscular Volume 102.1 fL (81.0-99.0); Mean Platelet Volume 11.2 fL (7.4-10.4); Platelet Count 182 10^3/uL (130-400); Red Blood Cell Count 2.82 10^6/uL (4.20-5.40); Red Cell Dist. Width 13.9 % (11.5-14.5); White Blood Cell Count 9.1 10^3/uL (4.8-10.8)
[2024-04-14] MEDS: PROTONIX 40 MG PO (10:20)
[2024-04-14 10:34] LABS: Iron 192 ug/dl (37-170)
[2024-04-14 10:45] LABS: Percent Saturation 83 % (20-50); Total Iron Binding Capacity 230 ug/dl (265-497)
--- NOTE | 2024-04-14 11:34 | W.PN.HOSP.TC ---
Today's Communication/Plan
-
See plan above.
Assessment / Plan
Assessment / Plan
Acute bloody diarrhea-suspicious for recurrent Keytruda associated colitis.
Patient had Keytruda related colitis requiring steroids with complete resolution of her symptoms some of this year. She went back on Keytruda and get 2 doses within the last 6 weeks and then she started to have bloody diarrhea since mid last week.
No recent exposure to antibiotics. She took 2 doses of prednisone 60 mg daily. She declined CT of the abdomen pelvis on this admission. She also had her chemotherapy. I see C. difficile antigen positive but toxin negative but with current
chemotherapy and Keytruda would like to get the opinion of ID for the role of therapeutic or prophylactic C. difficile treatments in the current setting.
GI following-continue with IV steroids and follow response.
Oncology consulted.
Follow electrolytes.
Check stools for culture.
Anticipated Discharge: > 48 hours
Subjective/Interval History
-
Date of Service: April 14, 2024
No nausea vomiting. Not much of abdominal pain. Still having bloody bowel movements around 6. Sometimes is just drops of blood and sometimes it is very mixed with stools which is light brown. No fever chills.
Objective Data
-
Labs:
Laboratory Results
04/14/24
05:49
WBC 9.1
Hgb 9.5 L
Hct 28.8 L
Plt Count 182 D
Vital Signs:
Vital Signs
Temp Pulse Resp BP Pulse Ox
98.4 F 72 16 118/71 100
04/14/24 07:15 04/14/24 07:15 04/14/24 07:15 04/14/24 00:42 04/14/24 07:15
I&O
04/13/24 04/14/24 04/15/24
06:59 06:59 06:59
Intake Total 575 / 575
Balance 575 / 575
Review of Systems
-
Respiratory: Denies Trouble Breathing
Cardiac: Denies Chest Pain
Neuro: Denies Dizzy
Physical Exam
-
General: Comfortable
HEENT: Moist Mucous Membranes
Respiratory: Clear to Auscultation
Cardiac: Regular Rhythm and S1/S2; Negative Tachycardic
GI: Soft, Nontender, Nondistended and Normal Bowel Sounds
Neuro: AO x 3
Data Reviewed
-
Labs: Labs Reviewed by me
[2024-04-14 11:42] LABS: Vitamin B12 > 1000 pg/ml (239-931)
--- NOTE | 2024-04-14 12:25 | CON.ID ---
Addendum entered and electronically signed by Roberta Dunlap MD 04/14/24 16:39:
I personally performed a history and physical exam of the patient and discussed management with the resident. I reviewed the resident's note and agree with the documented findings and plan of care HPI/CC.
34F with hx thyroid cancer, stage III breast ca on tx, h/o Keytruda-associated colitis, recently resumed Keytruda presenting with low back pain, lower abd pain, and bloody diarrhea - sxs similar to past colitis from Keytruda. MRI of thorax and
lumbar negative.
Exam: no spinal tenderness, no abdominal tenderness
A/P
# Bloody diarrhea
# Breast ca on Keytruda
- Suspect Keytruda- induced colitis
- Monitor for improvement on steroid.
# C. diff colonization
- C. diff Ag+, Toxin neg.
- Low suspicion for active C. diff (unless diarrhea does not respond to steroid).
- There is no indication for treatment nor prophylaxis.
- Avoid unnecessary abx.
Original Note:
Consultation
-
Date/Time Consultation Requested: 04/14/2024
Date/Time Consultation Performed: 04/14/2024
Requesting Provider: Isaiah Fatima MD
Performing Provider: Roberta Dunlap MD
Chief Complaint / Past History
Chief Complaint
Bloody diarrhea
History of Present Illness
34-year-old female with past medical history of breast cancer�stage IIIc�triple negative receiving neoadjuvant chemotherapy, colitis, thyroid cancer who presented to ER complaining of lower back pain and abdominal tenderness associated with
bloody bowel movements ongoing for a week now. Patient is on Keytruda therapy with a last dose on 04/09/2024. Started experiencing loose stools 2 days after. Stools increased in frequency with blood present in the stool. In addition patient
states she has lost a few pounds. Patient with previous history of Keytruda related colitis requiring admission previously. Now presenting with 6 episodes of bloody diarrhea, severe chronic lower back pain in the past 24 hours. On presentation to
ER, afebrile with vital signs stable. WBC normal, electrolytes appropriate. C. difficile antigen positive, toxin negative. Patient denies history of C.difficile infection. She denies recent antibiotics use.
Past History
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
Past Surgical History: Other ( section)
Allergy History:
oxycodone [From Percocet] Allergy (Verified 04/13/24 22:50)
Itching
Current Antibiotics:
None
Social History
Tobacco: Former Smoker
Alcohol: Occasional
Drug: None
Personal: Single
Living: With Family
Family History
Family History: Not Pertinent
Review of Systems
Review of Systems
General: Negative Fever or Chills
Cardiovascular: Negative Chest Pain
Respiratory: Negative Dyspnea or Cough
Gasteroenterology: Weight Loss and Diarrhea
Vital Signs
Temp Pulse Resp BP Pulse Ox
98.4 F 72 16 118/71 100
04/14/24 07:15 04/14/24 07:15 04/14/24 07:15 04/14/24 00:42 04/14/24 07:15
Physical Exam
Physical Exam
Constitutional: Acutely Ill
Eyes: Pupils Equal
Cardiovascular: Regular Rate and S1/S2
Pulmonary: Clear
Gastrointestinal: Soft, Tender (Mild generalized tenderness) and Non Distended
Extremities: Negative Edema
Musculoskeletal: Negative Joint Swelling or Spinal Tenderness
Skin: Warm
Neurological: Awake, Alert, Oriented and AO x 3
Psychological: Calm
Lab / Diagnostic Study Results
04/14/24 05:49
04/13/24 22:15
Abs Immat Gran (auto) 1.9 10^3/uL (0-0.05) H 04/13/24 22:15
Absolute Neuts (auto) 14.5 10^3/uL (1.4-6.5) H 04/13/24 22:15
Absolute Lymphs (auto) 0.3 10^3/uL (1.2-3.4) L 04/13/24 22:15
Absolute Monos (auto) 0.1 10^3/uL (0.1-0.6) 04/13/24 22:15
Absolute Basos (auto) 0.0 10^3/uL (0-0.2) 04/13/24 22:15
Immature Gran % 11.1 % (0-0.5) H 04/13/24 22:15
Neutrophils % 86.8 % (42.2-75.2) H 04/13/24 22:15
Lymphocytes % 1.7 % (20.5-51.1) L 04/13/24 22:15
Monocytes % 0.3 % (1.7-9.3) L 04/13/24 22:15
Eosinophils % 0.0 % (0-6) 04/13/24 22:15
Basophils % 0.1 % (0-2) 04/13/24 22:15
Microbiology Results
Micro:
04/13/24 22:41 C. difficile GDH Antigen & Toxins - Final
Feces/Stool C. difficile antigen positive, toxin negative.
Clostridium difficile present, but toxin not detected.
Patient may be a carrier, colonized with nontoxinogenic
strain or the level of toxin in sample is below detection
limits. This information should be used in conjunction with
the patient's clinical history.
04/13/24 22:41 Salmonella/Shigella Culture - Pending
Feces/Stool Campylobacter Culture - Pending
Shiga Toxin Test - Pending
Assessment / Plan
Assessment
#Acute bloody diarrhea likely secondary to Keytruda related colitis
#C. difficile antigen positive, toxin negative
#Lower back pain
#Stage III triple negative breast cancer on neoadjuvant chemotherapy
Plan
-Stool studies pending.
-Continue on IV steroids and see how she responds.
-At this time, will avoid treatment of C. Difficile antigen positive, toxin negative, as this might be colonization.
-If symptoms do not improve with steroids, will consider treatment with Vanco/Fidaxomicin.
-No indication for prophylaxis as patient has no history of Active C. difficile infection.
-Avoid Antibiotics use except needed.
--- NOTE | 2024-04-14 13:01 | CM ---
Patient seen at bedside.
MRI today, ONC consulted
IA completed
Dx: colitis
PMH: L breast ca, thyroid ca
Lives at home with her mom & 2 children in a 2 story home, 4 steps to enter, flight of steps to second floor
PLOF: Independent, no assistive device
Denies DME
PCP: Dahiana Carr
Pharmacy: [facility], [address], [place]
PLAN: Home, follow for VN needs
[2024-04-14] MEDS: SOLU-MEDROL PF 40 MG IV ×2 (14:20→21:45)
[2024-04-14 15:40] VITALS: BP 92/62
[2024-04-14 19:30] VITALS: BP 145/81
[2024-04-14 23:35] VITALS: BP 94/61
[2024-04-15] MEDS: DILAUDID 1 MG IV ×5 (00:46→20:46)
[2024-04-15] MEDS: SOLU-MEDROL PF 40 MG IV (05:38)
[2024-04-15 07:10] VITALS: BP 117/70
[2024-04-15 07:36] LABS: Hematocrit 28.9 % (37.0-47.0); Hemoglobin 9.4 g/dL (12.0-16.0); Mean Corp Hgb Conc. 32.5 g/dL (33.0-37.0); Mean Corpuscular Hgb 33.2 pg (27.0-31.0); Mean Corpuscular Volume 102.1 fL (81.0-99.0); Mean Platelet Volume 11.4 fL (7.4-10.4); Platelet Count 155 10^3/uL (130-400); Red Blood Cell Count 2.83 10^6/uL (4.20-5.40); Red Cell Dist. Width 13.5 % (11.5-14.5); White Blood Cell Count 3.1 10^3/uL (4.8-10.8)
[2024-04-15] MEDS: PROTONIX IV 40 MG IV (07:57)
[2024-04-15] MEDS: NSS (PRESERVATIVE FREE) 10 ML IV (07:57)
[2024-04-15] MEDS: ZOFRAN 4 MG IV ×2 (07:58→20:41)
[2024-04-15] MEDS: NSS 1000 IV (07:58)
[2024-04-15 08:04] LABS: Blood Urea Nitrogen 6 mg/dl (7-17); Calcium 8.9 mg/dl (8.4-10.2); Carbon Dioxide 28 mmol/L (22-30); Chloride 101 mmol/L (98-107); Estimated Creatinine Clearance 103 ml/min; Glucose 137 mg/dl (70-99); Potassium 4.5 mmol/L (3.5-5.1); Sodium 137 mmol/L (135-145); eGFR > 60.00
--- NOTE | 2024-04-15 08:58 | W.PN.ONC2 ---
Today's Communication / Plan
-
monitor stool output
continue steroids
Impression
Impression
[facility] ER low/MS-/Her2-IDC completed neoadjuvant chemo.
treatment induced colitis with bloody diarrhea started prednisone 1mg/kg 04/09 and transitioned to IV solumedrol 40mg Q8 04/14.
C. diff antigen positive, toxin negative
thyroid neoplasm -most recent US thyroid 03/31 right nodule 4.0x2.5x3.6 cm vs. 4.0x2.5x2.2 cm in sept with similar composition, echogenicity. -ENT specialist at [facility].
we reviewed that lower back - chronic T6 compression fracture. No metastatic dz on MRI T or L spine
abdominal pain improved
leukocytosis 2/2 steroids started 04/09, pegfilgrastim 04/10
Plan
Plan
follow up stool culture
continue symptom support with pain management, antiemetics, and hydration
continue steroids for immune mediated colitis- PPI while on steroids -appreciate GI assist
will need to consider infliximab if steroid refractory IO colitis but would hold off for now to see if IV steroids help
Pt has OP MRI breast scheduled April 2024 with OP follow up with Dr. Auguste to plan next steps in cancer treatment. May need PET restaging as well.
Subjective/Objective
Subjective
no new complaints
liquid stool x 7/24hours then had a semiformed, less bloody stool at 12MN and no BM since
Vital Signs:
Vital Signs
Temp Pulse Resp BP Pulse Ox
98.4 F 76 14 117/70 100
04/15/24 07:10 04/15/24 07:10 04/15/24 07:10 04/15/24 07:10 04/15/24 07:10
Lab Results:
Laboratory Data
WBC 3.1 10^3/uL (4.8-10.8) L 04/15/24 06:16
Hgb 9.4 g/dL (12.0-16.0) L 04/15/24 06:16
Plt Count 155 10^3/uL (130-400) 04/15/24 06:16
eGFR > 60.00 04/15/24 06:16
Physical Exam
HEENT: Moist Mucous Membranes; No Jaundice
Cardiology: Normal Sinus Rhythm
Pulmonary: Clear
GI: Soft
Extremities: Pulses Present; No Edema
Neuro: Non Focal
Orders
Orders
Orders From Last 24 Hours
04/14/24 09:00
Pantoprazole [Protonix] 40 mg PO DAILY
04/14/24 12:08
MR Lumbar W/o & With Contrast Routine
MR Thoracic Spine W/o & With Routine
--- NOTE | 2024-04-15 11:33 | W.PN.ID1 ---
Date of Service
Date of Service: April 15, 2024
Today's Communication
No need for antibiotic.
Assessment / Plan
# Breast ca on Keytruda
# Keytruda-induced colitis
- Bloody diarrhea resolved with steroid.
# Leukocytosis due to steroid.
# C. diff colonization
- C. diff Ag+, Toxin neg.
- No active C. diff
- There is no indication for treatment nor prophylaxis at this time (despite on immunotherapy Keytruda)
- Avoid unnecessary abx.
Chief Complaint
-: Other (Diarrhea)
Subjective / Review of Systems
Feels improved. No diarrhea/BM since midnight.
Vital Signs / Physical Exam
Vital Signs
Vital Signs
Temp Pulse Resp BP Pulse Ox
98.4 F 76 14 117/70 100
04/15/24 07:10 04/15/24 07:10 04/15/24 07:10 04/15/24 07:10 04/15/24 07:10
Physical Exam
Constitutional: No Acute Distress and Comfortable
Gastrointestinal: Soft, Non Tender and Non Distended
Neurological: AO x 3
Objective Data
Lab Data
Lab Results
04/15/24 06:16
04/15/24 06:16
Estimated Creat Clear 103 ml/min 04/15/24 06:16
Total Bilirubin 0.4 mg/dl (0.2-1.3) 04/13/24 22:15
AST 30 U/L (14-36) 04/13/24 22:15
ALT 34 U/L (0-35) 04/13/24 22:15
Alkaline Phosphatase 87 U/L (38-126) 04/13/24 22:15
Most recent labs reviewed.
Micro Results:
04/13/24 22:41 Salmonella/Shigella Culture - Preliminary
Feces/Stool Culture in Progress
Campylobacter Culture - Preliminary
Culture in Progress
Shiga Toxin Test - Pending
04/13/24 22:41 C. difficile GDH Antigen & Toxins - Final
Feces/Stool C. difficile antigen positive, toxin negative.
Clostridium difficile present, but toxin not detected.
Patient may be a carrier, colonized with nontoxinogenic
strain or the level of toxin in sample is below detection
limits. This information should be used in conjunction with
the patient's clinical history.
Care Review
Plan reviewed with: Physician (Dr. Min Fatima. )
[2024-04-15 12:24] VITALS: BMI 26.0
--- NOTE | 2024-04-15 13:31 | W.PN.HOSP.TC ---
Today's Communication/Plan
-
Consider switching to oral prednisone and if stable DC in a.m.
Assessment / Plan
Assessment / Plan
Acute bloody diarrhea-suspicious for recurrent Keytruda associated colitis.
Patient had Keytruda related colitis requiring steroids with complete resolution of her symptoms some of this year. She went back on Keytruda and get 2 doses within the last 6 weeks and then she started to have bloody diarrhea since mid last week.
No recent exposure to antibiotics. She took 2 doses of prednisone 60 mg daily. She declined CT of the abdomen pelvis on this admission. She also had her chemotherapy. I
GI following-continue with IV steroids - Improving diarrhea. Consider DC on oral steroids.
Advised to take oral pain regimen. Added Tramadol.
C diff felt to be a colonization which i agree. No tx or prophylaxis tx for now.
Anticipated Discharge: Within 24 hours
Subjective/Interval History
-
Date of Service: April 15, 2024
Improving diarrhea. Had a bowel moment without much blood but noted some flecks of blood in the stool.
Feels low-grade nausea but able to tolerate diet.
Abdominal pain present improving. Still requiring IV Dilaudid.
No fever or chills.
Objective Data
-
Labs:
Laboratory Results
04/15/24
06:16
WBC 3.1 L
Hgb 9.4 L
Hct 28.9 L
Plt Count 155
Sodium 137
Potassium 4.5
Chloride 101
Carbon Dioxide 28
BUN 6 L
Creatinine 0.4 L
Glucose 137 H
Calcium 8.9
Vital Signs:
Vital Signs
Temp Pulse Resp BP Pulse Ox
98.4 F 76 14 117/70 100
04/15/24 07:10 04/15/24 07:10 04/15/24 07:10 04/15/24 07:10 04/15/24 07:10
I&O
04/14/24 04/15/24 04/16/24
06:59 06:59 06:59
Intake Total 575 / 575 2519
Balance 575 / [id number]
Review of Systems
-
Respiratory: Denies Trouble Breathing
Cardiac: Denies Chest Pain
Neuro: Denies Dizzy
Physical Exam
-
General: No Apparent Distress
Respiratory: Non Labored Respirations; Negative Accessory Resp Muscle Use
Cardiac: Regular Rhythm and S1/S2
GI: Soft, Nontender, Nondistended and Normal Bowel Sounds
Neuro: AO x 3
Data Reviewed
-
Labs: Labs Reviewed by me
[2024-04-15] MEDS: DELTASONE 60 MG PO (13:59)
[2024-04-15] MEDS: CLARITIN 10 MG PO (13:59)
--- NOTE | 2024-04-15 14:33 | CM ---
Patient seen at bedside.
oral prednisone
PLAN: home, no needs anticipated.
son to transport
[2024-04-15 15:20] VITALS: BP 119/66
--- NOTE | 2024-04-15 16:08 | W.PN.GI.CBS2 ---
Today's Communication / Plan
-
Changed from IV solumedrol to prednisone 60mg
Monitor diarrhea
Continue low residue diet
If doing well, can d/c on prednisone taper
Assessment / Plan
-
IMPRESSION
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
prednisone. No personal or family history of IBD, microscopic colitis, ischemic colitis, IBS. Had hemorrhoids in the past.
Afebrile
Maintaining good blood pressure and pulse rate
WBC count within normal limits with increased percentage of neutrophils
Lipase normal
Albumin 4.8
Patient refused abdominal imaging due to potential radiations
ASSESSMENT/PLAN
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
Grade 2 CTCAE colitis
Subjective
Subjective
Date of Service: April 15, 2024
Feeling better. Had 4 stools today, 2 liquid, 2 semi-formed
Objective
Data Reviewed
Laboratory Data:
Laboratory Results
04/15/24 06:16
04/15/24 06:16
Laboratory Results
Total Bilirubin 0.4 mg/dl (0.2-1.3) 04/13/24 22:15
AST 30 U/L (14-36) 04/13/24 22:15
ALT 34 U/L (0-35) 04/13/24 22:15
Alkaline Phosphatase 87 U/L (38-126) 04/13/24 22:15
Lipase 34 U/L (23-300) 04/13/24 22:15
Vital Signs and I&O:
Vital Signs
Temp Pulse Resp BP Pulse Ox
98.4 F 74 16 119/66 100
04/15/24 15:20 04/15/24 15:20 04/15/24 15:20 04/15/24 15:20 04/15/24 15:20
I&O
04/14/24 04/15/24 04/16/24
06:59 06:59 06:59
Intake Total 575 / 575 2520 / 2520
Balance 575 / 575 2520 / 2520
Physical Exam
Physical Exam
GI: Soft, Non Distended and Non Tender
[2024-04-15] MEDS: ULTRAM 50 MG PO (18:29)
--- NOTE | 2024-04-15 20:54 | PTCARENOTE ---
Pt's call miller alarming, pt witnessed in her room laughing and joking over the phone. Pt states to RN the hospitalist did not order the correct dose of her home Tramadol, states 'she told him this' on rounds earlier this afternoon. Pt received one
dose of PRN Tramadol prior to shift change, c/o nausea and reports a 7/10 pain throughout her abdomen. Pt does not appear in any distress. PRN Dilaudid given to pt as ordered, see MAR. Discharge planning discussed with pt. Pt states 'I think I just
need a muscle relaxer, I don't think the Dilaudid even helps my pain, it just relaxes my muscles'. Updated on POC and potential for d/c in the AM.
[2024-04-15 23:18] VITALS: BP 105/62
[2024-04-16] MEDS: DILAUDID 1 MG IV (02:26)
--- NOTE | 2024-04-16 04:30 | DOWNTIME ---
There was a [employer] Downtime on 04/16/2024 from 0100 to 04/16/2024 at 0350. Downtime documentation of patient's care, including medication administrations, has been reconciled in the electronic record per guidelines. Refer to the
patient's paper chart under the miscellaneous tab to see printed paper medication records and downtime forms.
--- NOTE | 2024-04-16 06:26 | W.PN.ONC2 ---
Today's Communication / Plan
-
Probable stable for D/C home on PO prednisone with slow taper, increased tramadol (75) + acetaminophen but she should wean down as she gets farther out from pegfilgrastim.
Regarding prednisone taper, decrease by 10 mg every Q 5-7 days (then by 5 mg increments under 10 mg) depending on how the stools are. Should be off in 6-8 weeks. Slow taper. Assuming GI agrees.
Impression
Impression
II[facility] ER low/ID-/Her2-IDC completed neoadjuvant chemo.
treatment induced colitis with bloody diarrhea started prednisone 1mg/kg 04/09 and transitioned to IV solumedrol 40mg Q8 04/14.
C. diff antigen positive, toxin negative
thyroid neoplasm -most recent US thyroid 03/31 right nodule 4.0x2.5x3.6 cm vs. 4.0x2.5x2.2 cm in sept with similar composition, echogenicity. -ENT specialist at [facility].
we reviewed that lower back - chronic T6 compression fracture. No metastatic dz on MRI T or L spine
abdominal pain improved
leukocytosis 2/2 steroids started 04/09, pegfilgrastim 04/10
Plan
Plan
Increase tramadol from 50 Q4 to 75 Q6 PRN. She didn't realize it was increased to Q4 PRN. Take with acetaminophen.
Continue PO prednisone. Colitis clinically improving.
Suspect LBP from pegfilgrastim which is no longer needed with end of chemotherapy.
MRI reviewed and no evidence of gignificaant low back pathology. Chronic mild compression fracture of T6 seems too high based on where her symptoms are.
Pt has OP MRI breast scheduled April 2024 with OP follow up with Dr. Auguste to plan next steps in cancer treatment. May need PET restaging as well.
Probable stable for D/C home 04/16 on PO prednisone with slow taper, increased tramadol (75) + acetaminophen but she should wean down as she gets farther out from pegfilgrastim.
Regarding prednisone taper, decrea
Subjective/Objective
Chief Complaint
ACS Heme Onc
Subjective
Bowels improving. Stools now soft BM's, not watery. Switched back to PO prednisone. Still with low back pain 12/28 not adequate relief with tramadol 50 mg + acetaminophen. Asking for 100. LBP worse 2-3 weeks after chemotherapy but then starts to
improve. Last chemo (final dose) 04/09. Medical marijuana works at night but can't take during day (too 'high')
Vital Signs:
Vital Signs
Temp Pulse Resp BP Pulse Ox
97.9 F 60 18 105/62 98
04/15/24 23:18 04/15/24 23:18 04/15/24 23:18 04/15/24 23:18 04/15/24 23:18
Lab Results:
Laboratory Data
WBC 3.1 10^3/uL (4.8-10.8) L 04/15/24 06:16
Hgb 9.4 g/dL (12.0-16.0) L 04/15/24 06:16
Plt Count 155 10^3/uL (130-400) 04/15/24 06:16
eGFR > 60.00 04/15/24 06:16
Physical Exam
HEENT: No Jaundice
Cardiology: S1 and S2
Pulmonary: Clear
GI: Soft
Orders
Orders
Orders From Last 24 Hours
04/16/24 06:26
Tramadol HCl [Ultram] 75 mg PO Q6HPRN PRN
[2024-04-16 07:40] LABS: Hematocrit 30.7 % (37.0-47.0); Hemoglobin 10.3 g/dL (12.0-16.0); Mean Corp Hgb Conc. 33.6 g/dL (33.0-37.0); Mean Corpuscular Hgb 33.4 pg (27.0-31.0); Mean Corpuscular Volume 99.7 fL (81.0-99.0); Mean Platelet Volume 10.9 fL (7.4-10.4); Platelet Count 152 10^3/uL (130-400); Red Blood Cell Count 3.08 10^6/uL (4.20-5.40); Red Cell Dist. Width 13.3 % (11.5-14.5)
[2024-04-16] MEDS: ZOFRAN 8 MG PO (07:59)
[2024-04-16] MEDS: DELTASONE 60 MG PO (07:59)
[2024-04-16] MEDS: CLARITIN 10 MG PO (07:59)
[2024-04-16] MEDS: TYLENOL 650 MG PO (07:59)
[2024-04-16] MEDS: ULTRAM 75 MG PO (07:59)
[2024-04-16 08:00] VITALS: BP 114/75
[2024-04-16] MEDS: NSS (PRESERVATIVE FREE) 10 ML IV (08:00)
[2024-04-16] MEDS: PROTONIX IV 40 MG IV (08:00)
--- NOTE | 2024-04-16 09:14 | W.PN.GI.CBS2 ---
Addendum entered and electronically signed by Viktor Drake MD 04/16/24 13:49:
I saw and evaluated the patient. I reviewed the resident�s note and agree with findings and plan as documented in the resident�s note.
Getting d/c now
No urgency, diarrhea after breakfast, lunch
REC:
Slow prednisone taper. Agree with Onc recs
F/U with Onc OP to discuss rx
OK for d/c
Original Note:
Today's Communication / Plan
-
Continue oral steroids with slow taper as suggested by oncology,GI agrees
Keep monitoring the stool for response to steroids and dose management
Schedule an appointment with oncology for re-staging the malignancy and look into treatment options other than Keytruda
Assessment / Plan
-
IMPRESSION
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
prednisone. No personal or family history of IBD, microscopic colitis, ischemic colitis, IBS. Had hemorrhoids in the past.
Afebrile
Maintaining good blood pressure and pulse rate
WBC count within normal limits with increased percentage of neutrophils
Lipase normal
Albumin 4.8
Patient refused abdominal imaging due to potential radiations
ASSESSMENT/PLAN
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
Responsive to steroids
No more blood in the stools
Continue oral steroids and do slow taper of 10mg every 5-7 days and then by 5 mg increments under 10 mg as suggested by oncology depending on patient's symptoms
Follow with oncology about treatment options other than Keytruda and re-staging of the malignancy
MRI of thoraco-lumbar spine ruled out any metastatic disease process
T6 chronic compression fracture
Subjective
Subjective
Date of Service: April 16, 2024
No active issues,back pain still present,eating well and no more blood in the stools
Objective
Data Reviewed
Laboratory Data:
Laboratory Results
04/16/24 06:45
04/15/24 06:16
Laboratory Results
Total Bilirubin 0.4 mg/dl (0.2-1.3) 04/13/24 22:15
AST 30 U/L (14-36) 04/13/24 22:15
ALT 34 U/L (0-35) 04/13/24 22:15
Alkaline Phosphatase 87 U/L (38-126) 04/13/24 22:15
Lipase 34 U/L (23-300) 04/13/24 22:15
Vital Signs and I&O:
Vital Signs
Temp Pulse Resp BP Pulse Ox
97.9 F 89 17 114/75 99
04/16/24 08:00 04/16/24 08:00 04/16/24 08:00 04/16/24 08:00 04/16/24 08:00
I&O
04/15/24 04/16/24 04/17/24
06:59 06:59 06:59
Intake Total 2520 / 2520 1180 / 1180
Balance 2520 / 2520 1180 / 1180
Physical Exam
Physical Exam
HEENT: Anicteric and Moist mucous membranes
Cardiology: Normal Sinus Rhythm, S1 and S2
Pulmonary: Clear and Other (No wheezes,rales or ronchi)
GI: Soft, Non Tender and Normal Bowel Sounds
Extremities: No Edema and Pulses Present
Neuro: Non Focal and Other (alert and oriented)
--- NOTE | 2024-04-16 09:48 | W.PN.HOSP.TC ---
Today's Communication/Plan
-
DC
Assessment / Plan
Assessment / Plan
Acute bloody diarrhea-suspicious for recurrent Keytruda associated colitis.
Patient had Keytruda related colitis requiring steroids with complete resolution of her symptoms sometime this year. She went back on Keytruda and get 2 doses within the last 6 weeks and then she started to have bloody diarrhea since mid last week.
No recent exposure to antibiotics. She took 2 doses of prednisone 60 mg daily. She declined CT of the abdomen pelvis on this admission. She also had her chemotherapy.
GI following-continue with IV steroids - Improving diarrhea. DC on oral steroids and taper per Onc.
C diff felt to be a colonization which i agree. No tx or prophylaxis tx for now.
CW home meds as before.
DW pt about the prednisone taper and follow up.
Total time of dc 32 min
Anticipated Discharge: Today
Subjective/Interval History
-
Date of Service: April 16, 2024
Chronic diarrhea. No blood in the stool.
No fever or chills.
No nausea vomiting. Tolerating diet.
Objective Data
-
Labs:
Laboratory Results
04/16/24
06:45
WBC 2.0 L*
Hgb 10.3 L
Hct 30.7 L
Plt Count 152
Vital Signs:
Vital Signs
Temp Pulse Resp BP Pulse Ox
97.9 F 89 17 114/75 99
04/16/24 08:00 04/16/24 08:00 04/16/24 08:00 04/16/24 08:00 04/16/24 08:00
I&O
04/15/24 04/16/24 04/17/24
06:59 06:59 06:59
Intake Total 2520 / 2520 1180 / 1180
Balance 2520 / 2520 1180 / 1180
Review of Systems
-
Respiratory: Denies Trouble Breathing
Cardiac: Denies Chest Pain
Neuro: Denies Dizzy
Physical Exam
-
General: No Apparent Distress
Respiratory: Non Labored Respirations; Negative Accessory Resp Muscle Use
GI: Soft and Nontender
Neuro: AO x 3
Data Reviewed
-
Labs: Labs Reviewed by me
--- NOTE | 2024-04-16 12:02 | CM ---
Met with patient at bedside.
States she feels good today
Discharge today
PLAN: home, no needs
[2024-04-16 12:38] VITALS: BP 119/81
--- NOTE | 2024-04-16 15:43 | W.DCSUMMARY ---
Discharge Summary
Discharge Data
Date of Admission: 04/13/24
Date of Discharge: 04/16/24
-
Pending Results: Yes (Stool cultures)
Hospital Course
Primary diagnosis:
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
Secondary diagnosis:
Breast cancer on chemo and immunotherapy
Hospital course:
Patient currently on chemotherapy including Keytruda presented with acute colitis symptoms clinically. She had bloody diarrhea. She declined a CT scan on this admission. She had similar issues of immunotherapy related colitis when she was on
Keytruda. Keytruda was restarted 6 weeks ago and she had 2 doses. She was seen by oncology and GI and felt probably another colitis associate with immune therapy and was started on steroids. She had a good response with the steroids.
Her stool culture showed C. difficile antigen positive but toxin was negative. Clinically did not act like C. difficile colitis and there was no indication for treatments or prophylaxis.
Once she was tolerating diet and diarrhea improved she was discharged home on slow steroid taper. Currently she is on 60 mg daily to be tapered 10 mg weekly till she comes down to 10 mg and consider slow taper after that depending on her response.
Consultants on board:
Oncology-Bisi Shore
GI-Olga Whitt Do
ID-Roberta Clayton
Discharge Plan
-
Patient Disposition: Home (Routine Discharge)
Discharge Diagnosis/Procedures: Immunotherapy related colitis. Breast cancer on treatments
Condition: Good
Diet: Low Residue
Additional Diets: Low residue diet for a week and resume your prior diet
Activity: As tolerated
Driving Restrictions: As prior to admission
Referrals:
Dahiana Carr PA [Family Provider] - in less than 1 week
Prescriptions:
Continued
dicyclomine 20 mg tablet
20 mg PO QID PRN (Reason: abdominal cramping) Qty: 10 0RF
lorazepam [Ativan] 0.5 mg Tablet
0.5 mg PO TID PRN (Reason: nausea/cramping) Qty: 30 0RF
Patient Comments:
11/27/2023: last filled 10/10/23, 30 tabs for 10 days from [id number]
Rx Instructions:
take one tab every 8 hours as needed
vitamin B complex Tablet
1 tab PO DAILY
cholecalciferol (vitamin D3) [Vitamin D3] 25 mcg (1,000 unit) Tablet
25 mcg PO DAILY
Visbiome 112.5 billion cell Capsule
1 cap PO DAILY
tramadol 50 mg Tablet
50 mg PO Q4H PRN (Reason: back pain)
Patient Comments:
11/27/2023: last filled 11/20/23, 60 tabs for 15 days from [id number]
melatonin 10 mg Tablet
10 mg PO HS PRN (Reason: sleep)
acetaminophen 500 mg Tablet
1,000 mg PO Q6H PRN (Reason: mild pain)
potassium chloride 20 mEq tablet extended release
20 meq PO DAILY
Fish Oil
1 unit PO DAILY
Sperlena
1 unit PO DAILY
addrmunt-zdtxg-kinuruehhu-bear
1 unit PO DAILY
prochlorperazine maleate 10 mg Tablet
10 mg PO Q6H PRN (Reason: NAUSEA)
ondansetron HCl 8 mg Tablet
8 mg PO Q8H PRN (Reason: nausea)
Medical Cannabis
1 applicator PO Q6H PRN (Reason: pain)
Fulphila 6 mg/0.6 mL Syringe
6 mg SC ONCE
Rx Instructions:
24 hours after chemotherapy
cyclophosphamide 100 mg Recon Soln
1,020 mg IV .Q3WK
loratadine [Claritin] 10 mg Tablet
10 mg PO DAILY PRN (Reason: fulphila)
doxorubicin 50 mg/25 mL Solution
100 mg IV .Q3WK
pembrolizumab 50 mg Recon Soln
200 mg IV Q3W
loperamide 2 mg Capsule
2 mg PO Q4H PRN (Reason: diarrhea)
Deltasone tablet
60 mg PO DAILY Qty: 0 0RF
Rx Instructions:
continue to take 60mg daily for a week and taper by 10mg every week .
Discharge Orders:
Discharge Patient (As Directed); Ordered 04/16/24
Ordered By: Isaiah Fatima
Discharge Date and Time
Discharge Date/Time: 04/16/24 15:13
Print Language: MALAWIAN
== END 2024-04-16 15:13 | disposition home or self-care (01) | DRG 395 ==
LOC: 2 NORTH 23:21
PROVIDERS: Nurse Practitioner; Registered Nurse; ADMITTING PHYSICIAN Internal Medicine; ATTENDING PHYSICIAN Internal Medicine; CONSULT PHYSICIAN Internal Medicine Gastroenterology; CONSULT PHYSICIAN Internal Medicine Infectious Disease; EMERGENCY PHYSICIAN Emergency Medicine; FAMILY PHYSICIAN Family Medicine; OTHER PHYSICIAN Nurse Practitioner Acute Care
DX: K52.1 Toxic gastroenteritis and colitis (principal); Z87.891 Personal history of nicotine dependence; C50.912 Malignant neoplasm of unspecified site of left female breast; C73 Malignant neoplasm of thyroid gland; M54.50 Low back pain, unspecified; Z88.8 Allergy status to other drugs, medicaments and biological substances; Z17.421 Hormone receptor negative with human epidermal growth factor receptor 2 negative status; D63.8 Anemia in other chronic diseases classified elsewhere; Z83.2 Family history of diseases of the blood and blood-forming organs and certain disorders involving the immune mechanism; Z79.899 Other long term (current) drug therapy; Z17.22 Progesterone receptor negative status; T38.0X5A Adverse effect of glucocorticoids and synthetic analogues, initial encounter; T45.AX5A Adverse effect of immune checkpoint inhibitors and immunostimulant drugs, initial encounter; D50.8 Other iron deficiency anemias; Z80.3 Family history of malignant neoplasm of breast; Z98.891 History of uterine scar from previous surgery; D72.829 Elevated white blood cell count, unspecified
CPT/HCPCS: 72110; 72157; 72158; 72170; 80048; 80053; 82607; 82746; 83540; 83550; 83690; 85025; 85027; 87045; 87046; 87077; 87324; 87427; 87449; 96361; 96374; 99285; A9575

== ENCOUNTER → 2024-07-24 10:49 | Outpatient (REF) | payer OTHER, SELFPAY | LOC: RCS 10:49 | PROVIDERS: ATTENDING PHYSICIAN Internal Medicine; FAMILY PHYSICIAN Family Medicine | DX: R06.02 Shortness of breath (principal); C50.919 Malignant neoplasm of unspecified site of unspecified female breast; Z09 Encounter for follow-up examination after completed treatment for conditions other than malignant neoplasm | CPT/HCPCS: 93306 ==